=== PATIENT | male | born 1950 | race Caucasian/White ===

== ENCOUNTER 2017-10-01 13:14 | Inpatient (IN) | payer MEDICARE ==
[~2017-10-01] VITALS: Ht 172.7 cm; Wt 113.1 kg
--- NOTE | 2017-10-01 13:20 | PHYS DOC ---
Adult General Chief Complaint Chief Complaint: ALTERED MENTAL STATUS [facility] HPI Patient is a 67 year old male who presents with oriented mental status. He is on 10 mg of morphine that he takes every 4 hours for his chronic back pain he states the last time he took one was at 10 AM this morning he started feeling "off". He denies any fevers chills and neck pain or stiffness, shortness of breath headache, or abdominal pain. He states he just doesn't feel normal for him. According to nursing staff he drove his here to an outpatient procedure and security found him passed out in his car with it still in gear. He drool on the side of his face. They helped him into the hospital to his outpatient waiting room where staff in the outpatient waiting room sent to the emergency department. According to nursing staff he's on Dilaudid, morphine, and tizanidine, I was also informed that he probably got into his 's "lock box" and other narcotics in it. She according to his son he has a history of a nephrectomy approximately 4 months ago secondary to "cancer" and also had leukemia. The told me that his symptoms been going on since Friday wishes been very tired and slurring some of his words. She states he did not say that he's had a headache neck stiffness fevers or chills. Review of Systems Review of Systems Constitutional: Denies fever or chills [] Eyes: Denies change in visual acuity, redness, or eye pain [] HENT: Denies nasal congestion or sore throat [] Respiratory: Denies cough or shortness of breath [] Cardiovascular: No additional information not addressed in HPI [] GI: Denies abdominal pain, nausea, vomiting, bloody stools or diarrhea [] : Denies dysuria or hematuria [] Musculoskeletal: Denies back pain or joint pain [] Integument: Denies rash or skin lesions [] Neurologic: Denies headache, focal weakness or sensory changes [] Endocrine: Denies polyuria or polydipsia [] All other systems were reviewed and found to be within normal limits, except as documented in this note. Current Medications Current Medications Current Medications Medications (Trade) Dose Ordered Sig/Nils Start Time Stop Time Status Last Admin Dose Admin Naloxone HCl (Narcan) 0.4 mg 1X ONCE 10/01/17 15:15 10/01/17 15:16 DC 10/01/17 15:15 0.4 MG Sodium Chloride 1,000 ml @ 1,000 mls/hr 1X ONCE 10/01/17 15:15 10/01/17 16:14 DC 10/01/17 15:15 1,000 MLS/HR Allergies Allergies Allergies Coded Allergies Type Severity Reaction Last Updated Verified No Known Drug Allergies 10/01/17 No Physical Exam Physical Exam Constitutional: Well developed, well nourished, no acute distress, non-toxic appearance. [] HENT: Normocephalic, atraumatic, bilateral external ears normal, oropharynx moist, no oral exudates, nose normal. Pupils 2 mm bilaterally and reactive Eyes: PERRLA, EOMI, conjunctiva normal, no discharge. [] Neck: Normal range of motion, no tenderness, supple, no stridor. [] Cardiovascular:Heart rate regular rhythm, no murmur [] Lungs & Thorax: Bilateral breath sounds clear to auscultation [] Abdomen: Bowel sounds normal, soft, no tenderness, no masses, no pulsatile masses. [] Skin: Warm, dry, no erythema, no rash. [] Back: No tenderness, no CVA tenderness. [] Extremities: No tenderness, no cyanosis, no clubbing, ROM intact, no edema. [] Neurologic: Alert and oriented X 3, drowsy, normal motor function, normal sensory function, no focal deficits noted. [] Current Patient Data Vital Signs Vital Signs Date Time Temp Pulse Resp B/P (MAP) Pulse Ox O2 Delivery O2 Flow Rate FiO2 10/01/17 16:05 64 16 98 10/01/17 13:28 97.7 159/87 (111) 97.7 Lab Values Laboratory Tests Test 10/01/17 13:36 10/01/17 13:55 10/01/17 14:10 10/01/17 14:16 Glucose (Fingerstick) 88 mg/dL (70-99) O2 Saturation 92 % (92-99) Arterial Blood pH 7.35 (7.35-7.45) Arterial Blood pCO2 at Patient Temp 59 mmHg (35-46) H Arterial Blood pO2 at Patient Temp 67 mmHg (65-108) Arterial Blood HCO3 32 mmol/L (21-28) H Arterial Blood Base Excess 5 mmol/L (-3-3) H FiO2 21.0 Prothrombin Time 13.7 SEC (11.7-14.0) Prothrombin Time INR 1.1 (0.8-1.1) PTT 21 SEC (24-38) L Sodium Level 145 mmol/L (136-145) Potassium Level 4.5 mmol/L (3.5-5.1) Chloride Level 106 mmol/L (98-107) Carbon Dioxide Level 33 mmol/L (21-32) H Anion Gap 6 (6-14) Blood Urea Nitrogen 29 mg/dL (8-26) H Creatinine 1.7 mg/dL (0.7-1.3) H Estimated GFR (Cockcroft-Gault) 40.2 Glucose Level 90 mg/dL (70-99) Calcium Level 9.1 mg/dL (8.5-10.1) Magnesium Level 2.1 mg/dL (1.8-2.4) Total Bilirubin 0.5 mg/dL (0.2-1.0) Direct Bilirubin 0.1 mg/dL (0.0-0.2) Aspartate Amino Transferase (AST) 26 U/L (15-37) Alanine Aminotransferase (ALT) 20 U/L (16-63) Alkaline Phosphatase 57 U/L (46-116) Ammonia 17 mcmol/L (11-34) Creatine Kinase 365 U/L (39-308) H Creatine Kinase MB (Mass) 4.2 ng/mL (0.0-3.6) H Creatine Kinase MB Relative Index 1.2 % (0-4) Myoglobin < 1 ng/mL (16-96) L Troponin I Quantitative < 0.017 ng/mL (0.000-0.055) NG-Dll-D-Type Natriuretic Peptide 280 pg/mL (0-124) H Total Protein 6.3 g/dL (6.4-8.2) L Albumin 3.1 g/dL (3.4-5.0) L Salicylates Level < 2.8 mg/dL (2.8-20.0) L Salicylate Last Dose Date Unknown Salicylate Last Dose Time Unknown Acetaminophen Level 3.6 mcg/ml (10-30) L Acetaminophen Last Dose Date Unknown Acetaminophen Last Dose Time Unknown Ethyl Alcohol Level < 10 mg/dL (0-10) White Blood Count 42.8 x10^3/uL (4.0-11.0) *H Red Blood Count 4.02 x10^6/uL (4.30-5.70) L Hemoglobin 11.8 g/dL (13.0-17.5) L Hematocrit 37.1 % (39.0-53.0) L Mean Corpuscular Volume 92 fL (79-100) Mean Corpuscular Hemoglobin 29 pg (25-35) Mean Corpuscular Hemoglobin Concent 32 g/dL (31-37) Red Cell Distribution Width 15.3 % (11.5-14.5) H Platelet Count 242 x10^3/uL (140-400) Neutrophils (%) (Auto) 13 % (31-73) L Lymphocytes (%) (Auto) 83 % (24-48) H Monocytes (%) (Auto) 3 % (0-9) Eosinophils (%) (Auto) 1 % (0-3) Basophils (%) (Auto) 0 % (0-3) Neutrophils # (Auto) 5.7 x10^3uL (1.8-7.7) Lymphocytes # (Auto) 35.5 x10^3/uL (1.0-4.8) H Monocytes # (Auto) 1.3 x10^3/uL (0.0-1.1) H Eosinophils # (Auto) 0.2 x10^3/uL (0.0-0.7) Basophils # (Auto) 0.1 x10^3/uL (0.0-0.2) Segmented Neutrophils % 4 % (35-66) L Band Neutrophils % 2 % (0-9) Lymphocytes % 88 % (24-48) H Monocytes % 6 % (0-10) Smudge Cells Present Platelet Estimate Adequate (ADEQUATE) Ovalocytes Few Test 10/01/17 15:40 Urine Collection Type Unknown Urine Color Yellow Urine Clarity Clear Urine pH 6.0 Urine Specific [place] 1.025 Urine Protein >=300 mg/dL (NEG-TRACE) Urine Glucose (UA) Negative mg/dL (NEG) Urine Ketones (Stick) Negative mg/dL (NEG) Urine Blood Negative (NEG) Urine Nitrite Negative (NEG) Urine Bilirubin Negative (NEG) Urine Urobilinogen Dipstick 1.0 mg/dL (0.2 mg/dL) Urine Leukocyte Esterase Negative (NEG) Urine RBC 0 /HPF (0-2) Urine WBC 0 /HPF (0-4) Urine Squamous Epithelial Cells None /LPF Urine Bacteria 0 /HPF (0-FEW) Urine Hyaline Casts Moderate /HPF Urine Mucus Mod /LPF Urine Opiates Screen Pos (NEG) Urine Methadone Screen Neg (NEG) Urine Barbiturates Neg (NEG) Urine Phencyclidine Screen Neg (NEG) Urine Amphetamine/Methamphetamine Neg (NEG) Urine Benzodiazepines Screen Pos (NEG) Urine Cocaine Screen Neg (NEG) Urine Cannabinoids Screen Neg (NEG) Urine Ethyl Alcohol Neg (NEG) Laboratory Tests 10/01/17 14:16 Laboratory Tests 10/01/17 14:10 EKG EKG EKG shows sinus rhythm with rate of [address] elevations or concerning T-wave inversions, normal axis, QTC 433 ms, as interpreted by me. Radiology/Procedures Radiology/Procedures [facility] [address] [place] [address] IMAGING REPORT Signed PATIENT: BEAR BEASLEY ACCOUNT: [id number] : 1950 LOCATION: ER AGE: 67 SEX: M EXAM STATUS: PRE ER ORD. PHYSICIAN: ASHOK ELIZABETH MD REASON: AMS PROCEDURE: CT HEAD WO CONTRAST Clinical indications: Altered mental status today. Decreased level of consciousness. Comparison: None available. Technique: Noncontrast axial cross sectional scanning of the head was performed. Findings: No acute intracranial hemorrhage or midline shift or mass-effect or hydrocephalus or extra-axial fluid collection is seen. Moderate bilateral periventricular white matter hypodensity is seen consistent with chronic small vessel ischemic disease in this age group. 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 MRI may be more sensitive to detect acute ischemia in the setting of chronic small vessel ischemic disease. No skull fracture or pneumocephalus is seen. No opacification of the mastoid sinuses or the paranasal sinuses is seen. The maxillary sinuses are not completely seen in this study. Impression: No acute intracranial hemorrhage is seen. Chronic small vessel ischemic disease PQRS Compliance Statement: One or more of the following individualized dose reduction techniques were utilized for this examination: 1. Automated exposure control 2. Adjustment of the mA and/or kV according to patient size 3. Use of iterative reconstruction technique DICTATED and SIGNED BY: DAVE BALL MD DATE: 10/01/171438 CC: ASHOK ELIZABTEH MD ~ [facility] [address] [place] [address] IMAGING REPORT Signed PATIENT: BEAR BEASLEY ACCOUNT: [id number] : 1950 LOCATION: ER AGE: 67 SEX: M EXAM STATUS: PRE ER ORD. PHYSICIAN: ASHOK ELIZABETH MD REASON: AMS PROCEDURE: PORTABLE CHEST 1V Portable AP upright view CXR: Clinical indications: Altered mental status. Findings: No acute lung infiltrate or pleural effusion or pulmonary edema or lung mass or pneumothorax is seen. Prominent left ventricular contour is seen. The pulmonary vasculature, mediastinum and both nicole are unremarkable. Impression: No acute lung infiltrate. Mild cardiomegaly.. DICTATED and SIGNED BY: DAVE BALL MD DATE: 10/01/171436 CC: ASHOK ELIZABETH MD ~ Impressions: Altered mental status History of leukemia\\ Back pain Course & Med Decision Making Course & Med Decision Making Pertinent Labs and Imaging studies reviewed. (See chart for details) Patient received 0.4 mg of Narcan 2 and had improvement in his somnolence for about 2 minutes and then it resolved. His ABG showed mild respiratory acidosis and was started on BiPAP which after approximately 40 minutes improved slightly. He is being admitted to the hospitalist in stable condition at this time. I suspect this is likely secondary to muscle relaxants. He is in stable condition this time going to ICU. We will obtain MRI for further clarification. I did insert antibiotics however with a history of leukemia and the elevated white blood cell count I will hold off at this time. Dragon Disclaimer Dragon Disclaimer This electronic medical record was generated, in whole or in part, using a voice recognition dictation system. Departure Departure Impression: Primary Impression: Mental status change Disposition: ADMITTED INPATIENT Admitting Physician: Nehal Bruce Condition: STABLE ASHOK ELIZABETH MD Oct 01, 2017 13:20
[2017-10-01] MEDS ORDERED: NALOXONE 0.4 MG/ML VIAL. IV ONE ×2 (13:45→15:15)
[2017-10-01] MEDS ORDERED: NALOXONE 0.4 MG/ML VIAL. ONE (13:54)
[2017-10-01 13:58] LABS: HCO3 ABG 32 mmol/L (21-28); PCO2 ABG 59 mmHg (35-46); PO2 ABG 67 mmHg (65-108); SAT O2 ABG 92 % (92-99)
[2017-10-01 14:00] LABS: PH ABG 7.35 (7.35-7.45)
--- NOTE | 2017-10-01 14:09 | EKG ---
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
[2017-10-01 14:30] LABS: BASO # 0.1 x10^3/uL (0.0-0.2); BASO % 0 % (0-3); EOS % 1 % (0-3); HEMATOCRIT 37.1 % (39.0-53.0); HEMOGLOBIN 11.8 g/dL (13.0-17.5); LYMPH # 35.5 x10^3/uL (1.0-4.8); MEAN CORPUSCULAR HEMOGLOBIN 29 pg (25-35); MEAN CORPUSCULAR HGB CONC 32 g/dL (31-37); MEAN CORPUSCULAR VOLUME 92 fL (79-100); MONO % 3 % (0-9); NEUT % 13 % (31-73); PLATELET COUNT 242 x10^3/uL (140-400); RED BLOOD COUNT 4.02 x10^6/uL (4.30-5.70); RED CELL DISTRIBUTION WIDTH 15.3 % (11.5-14.5)
[2017-10-01 14:36] LABS: WHITE BLOOD COUNT 42.8 x10^3/uL (4.0-11.0)
[2017-10-01 14:38] LABS: INR 1.1 (0.8-1.1); PROTHROMBIN TIME PATIENT 13.7 SEC (11.7-14.0)
[2017-10-01 14:41] LABS: CALCIUM 9.1 mg/dL (8.5-10.1); CREATININE 1.7 mg/dL (0.7-1.3); GFR 40.2; POTASSIUM 4.5 mmol/L (3.5-5.1)
--- NOTE | 2017-10-01 14:42 | RAD ---
Portable AP upright view CXR: Clinical indications: Altered mental status. Findings: No acute lung infiltrate or pleural effusion or pulmonary edema or lung mass or pneumothorax is seen. Prominent left ventricular contour is seen. The pulmonary vasculature, mediastinum and both nicole are unremarkable. Impression: No acute lung infiltrate. Mild cardiomegaly..
[2017-10-01 14:47] LABS: ALBUMIN 3.1 g/dL (3.4-5.0); DIRECT BILIRUBIN 0.1 mg/dL (0.0-0.2); ETHANOL < 10 mg/dL (0-10); MAGNESIUM 2.1 mg/dL (1.8-2.4); TOTAL BILIRUBIN 0.5 mg/dL (0.2-1.0); TOTAL PROTEIN 6.3 g/dL (6.4-8.2)
--- NOTE | 2017-10-01 14:47 | RAD ---
Clinical indications: Altered mental status today. Decreased level of consciousness. Comparison: None available. Technique: Noncontrast axial cross sectional scanning of the head was performed. Findings: No acute intracranial hemorrhage or midline shift or mass-effect or hydrocephalus or extra-axial fluid collection is seen. Moderate bilateral periventricular white matter hypodensity is seen consistent with chronic small vessel ischemic disease in this age group. 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 MRI may be more sensitive to detect acute ischemia in the setting of chronic small vessel ischemic disease. No skull fracture or pneumocephalus is seen. No opacification of the mastoid sinuses or the paranasal sinuses is seen. The maxillary sinuses are not completely seen in this study. Impression: No acute intracranial hemorrhage is seen. Chronic small vessel ischemic disease PQRS Compliance Statement: One or more of the following individualized dose reduction techniques were utilized for this examination: 1. Automated exposure control 2. Adjustment of the mA and/or kV according to patient size 3. Use of iterative reconstruction technique
[2017-10-01 14:54] LABS: CKMB MASS 4.2 ng/mL (0.0-3.6)
[2017-10-01] MEDS ORDERED: IV NORMAL SALINE 1000ML BAG 1,000 ML IV ONE (15:15)
[2017-10-01 16:07] LABS: BILIRUBIN,URINE NEGATIVE (NEG); GLUCOSE,URINE NEGATIVE (NEG); NITRITE,URINE NEGATIVE (NEG); PROTEIN,URINE >=300 mg/dL (NEG-TRACE)
[2017-10-01 16:13] LABS: BARBITURATES NEG (NEG); BENZODIAZEPINES POS (NEG); CANNABINOIDS NEG (NEG); COCAINE NEG (NEG); METHADONE NEG (NEG); OPIATES POS (NEG); PHENCYCLIDINE NEG (NEG)
[2017-10-01 16:19] LABS: BACTERIA,URINE 0 /HPF (0-FEW); RBC,URINE 0 /HPF (0-2); WBC,URINE 0 /HPF (0-4)
[2017-10-01 16:59] LABS: HCO3 ABG 29 mmol/L (21-28); PCO2 ABG 52 mmHg (35-46); PH ABG 7.37 (7.35-7.45); PO2 ABG 80 mmHg (65-108); SAT O2 ABG 95 % (92-99)
[2017-10-01 17:05] LABS: OVALOCYTES FEW; PLT ESTIMATE ADEQUATE (ADEQUATE); SMUDGE CELLS PRESENT
[2017-10-01 17:15] VITALS: BP 156/71
[2017-10-01] MEDS ORDERED: ONDANSETRON PF 4 MG/2 ML VIAL. IV PRN ×2 (17:30→17:45)
[2017-10-01] MEDS ORDERED: MORPHINE SULFATE 4 MG/ML DISP.SYRIN. IV PRN (17:45)
[2017-10-01] MEDS ORDERED: traMADol 50 MG TABLET PO PRN (17:45)
[2017-10-01] MEDS ORDERED: ACETAMINOPHEN 325 MG TABLET. PO PRN (17:45)
[2017-10-01] MEDS ORDERED: hydrALAZINE 20 MG/ML VIAL. IVP PRN (17:45)
[2017-10-01] MEDS ORDERED: DOCUSATE SODIUM 100 MG CAPSULE. PO PRN (17:45)
--- NOTE | 2017-10-01 17:49 | PDOC1 ---
History and Physical Date of Admission Date of Admission 10/01/17 Identification/Chief Complaint Chief Complaint AMS Problems: Source Source: Chart review, Patient History of Present Illness History of Present Illness Patient is a 67 year old male who presents with oriented mental status. pt seen in ER, with bipap on, arousable, but cannot tell me the whole history. denies fever, chills, pain, sob, N/V. as per ERP, pt He is on 10 mg of morphine that he takes every 4 hours for his chronic back pain he states the last time he took one was at 10 AM this morning he started feeling "off". According to nursing staff he drove his here to an outpatient procedure and security found him passed out in his car with it still in gear. He drool on the side of his face. They helped him into the hospital to his outpatient waiting room where staff in the outpatient waiting room sent to the emergency department. According to nursing staff he's on Dilaudid, morphine, and tizanidine, ERP was also informed that he probably got into his 's "lock box" and other narcotics in it. She according to his son he has a history of a nephrectomy approximately 4 months ago secondary to "cancer" and also had leukemia. The told ERP that his symptoms been going on since Friday wishes been very tired and slurring some of his words. She states he did not say that he's had a headache neck stiffness fevers or chills. in ER, ABG showed mild hypercapnic resp failure with PCO2 59, wbc 42 with high lymph. got narcan in ER. Past Medical History Past Medical History cannot obtain Past Surgical History Past Surgical History nephrectomy Family History Family History: Hypertension Social History Smoke: No ALCOHOL: none Drugs: None Current Medications Current Medications Current Medications Medications (Trade) Dose Ordered Sig/Nils Start Time Stop Time Status Last Admin Dose Admin Dextrose/Sodium Chloride 1,000 ml @ 100 mls/hr Q10H 10/01/17 17:30 Naloxone HCl (Narcan) 0.4 mg 1X ONCE 10/01/17 15:15 10/01/17 15:16 DC 10/01/17 15:15 0.4 MG Ondansetron HCl (Zofran) 4 mg PRN Q8HRS PRN 10/01/17 17:30 10/02/17 17:29 Sodium Chloride 1,000 ml @ 1,000 mls/hr 1X ONCE 10/01/17 15:15 10/01/17 16:14 DC 10/01/17 15:15 1,000 MLS/HR Allergies Allergies Allergies Coded Allergies Type Severity Reaction Last Updated Verified No Known Drug Allergies 10/01/17 No ROS Review of System CONSTITUTIONAL: No fever or chills EYES: No recent changes SKIN: No rash or itching CARDIOVASCULAR: No chest pain, syncope, palpitations, or edema RESPIRATORY: No SOB or cough GASTROINTESTINAL: No nausea, vomiting or abdominal pain NEUROLOGICAL: No headaches or weakness ENDOCRINE: No cold or heat intolerance GENITOURINARY: No urgency or frequency of urination MUSCULOSKELETAL: No back pain or joint pain LYMPHATICS: No enlarged lymph nodes PSYCHIATRIC: No anxiety or depression Physical Exam Physical Exam GEN.: No apparent distress. on bipap, arousable, follow commands by squeezing my hands, but not really answer my questions HEENT: Head is normocephalic, atraumatic NECK: Supple. LUNGS: Clear to auscultation. HEART: RRR, S1, S2 present. Peripheral pulses intact ABDOMEN: Soft, nontender. Positive bowel sounds. EXTREMITIES: Without any cyanosis. NEUROLOGIC: Normal speech, normal tone PSYCHIATRIC: Normal affect, normal mood. SKIN: No ulcerations Vitals Vitals Vital Signs Date Time Temp Pulse Resp B/P (MAP) Pulse Ox O2 Delivery O2 Flow Rate FiO2 10/01/17 16:05 64 16 98 10/01/17 13:28 97.7 159/87 (111) 97.7 Labs Labs Laboratory Tests Test 10/01/17 13:36 10/01/17 13:55 10/01/17 14:10 10/01/17 14:16 Glucose (Fingerstick) 88 mg/dL (70-99) O2 Saturation 92 % (92-99) Arterial Blood pH 7.35 (7.35-7.45) Arterial Blood pCO2 at Patient Temp 59 mmHg (35-46) Arterial Blood pO2 at Patient Temp 67 mmHg (65-108) Arterial Blood HCO3 32 mmol/L (21-28) Arterial Blood Base Excess 5 mmol/L (-3-3) FiO2 21.0 Prothrombin Time 13.7 SEC (11.7-14.0) Prothromb Time International Ratio 1.1 (0.8-1.1) Activated Partial Thromboplast Time 21 SEC (24-38) Sodium Level 145 mmol/L (136-145) Potassium Level 4.5 mmol/L (3.5-5.1) Chloride Level 106 mmol/L (98-107) Carbon Dioxide Level 33 mmol/L (21-32) Anion Gap 6 (6-14) Blood Urea Nitrogen 29 mg/dL (8-26) Creatinine 1.7 mg/dL (0.7-1.3) Estimated GFR (Cockcroft-Gault) 40.2 Glucose Level 90 mg/dL (70-99) Calcium Level 9.1 mg/dL (8.5-10.1) Magnesium Level 2.1 mg/dL (1.8-2.4) Total Bilirubin 0.5 mg/dL (0.2-1.0) Direct Bilirubin 0.1 mg/dL (0.0-0.2) Aspartate Amino Transf (AST/SGOT) 26 U/L (15-37) Alanine Aminotransferase (ALT/SGPT) 20 U/L (16-63) Alkaline Phosphatase 57 U/L (46-116) Ammonia 17 mcmol/L (11-34) Creatine Kinase 365 U/L (39-308) Creatine Kinase MB (Mass) 4.2 ng/mL (0.0-3.6) Creatine Kinase MB Relative Index 1.2 % (0-4) Myoglobin < 1 ng/mL (16-96) Troponin I Quantitative < 0.017 ng/mL (0.000-0.055) BU-Nca-R-Type Natriuretic Peptide 280 pg/mL (0-124) Total Protein 6.3 g/dL (6.4-8.2) Albumin 3.1 g/dL (3.4-5.0) Salicylates Level < 2.8 mg/dL (2.8-20.0) Salicylate Last Dose Date Unknown Salicylate Last Dose Time Unknown Acetaminophen Level 3.6 mcg/ml (10-30) Acetaminophen Last Dose Date Unknown Acetaminophen Last Dose Time Unknown Ethyl Alcohol Level < 10 mg/dL (0-10) White Blood Count 42.8 x10^3/uL (4.0-11.0) Red Blood Count 4.02 x10^6/uL (4.30-5.70) Hemoglobin 11.8 g/dL (13.0-17.5) Hematocrit 37.1 % (39.0-53.0) Mean Corpuscular Volume 92 fL (79-100) Mean Corpuscular Hemoglobin 29 pg (25-35) Mean Corpuscular Hemoglobin Concent 32 g/dL (31-37) Red Cell Distribution Width 15.3 % (11.5-14.5) Platelet Count 242 x10^3/uL (140-400) Neutrophils (%) (Auto) 13 % (31-73) Lymphocytes (%) (Auto) 83 % (24-48) Monocytes (%) (Auto) 3 % (0-9) Eosinophils (%) (Auto) 1 % (0-3) Basophils (%) (Auto) 0 % (0-3) Neutrophils # (Auto) 5.7 x10^3uL (1.8-7.7) Lymphocytes # (Auto) 35.5 x10^3/uL (1.0-4.8) Monocytes # (Auto) 1.3 x10^3/uL (0.0-1.1) Eosinophils # (Auto) 0.2 x10^3/uL (0.0-0.7) Basophils # (Auto) 0.1 x10^3/uL (0.0-0.2) Segmented Neutrophils % 4 % (35-66) Band Neutrophils % 2 % (0-9) Lymphocytes % 88 % (24-48) Monocytes % 6 % (0-10) Smudge Cells Present Platelet Estimate Adequate (ADEQUATE) Ovalocytes Few Test 10/01/17 15:40 10/01/17 16:55 Urine Collection Type Unknown Urine Color Yellow Urine Clarity Clear Urine pH 6.0 Urine Specific [place] 1.025 Urine Protein >=300 mg/dL (NEG-TRACE) Urine Glucose (UA) Negative mg/dL (NEG) Urine Ketones (Stick) Negative mg/dL (NEG) Urine Blood Negative (NEG) Urine Nitrite Negative (NEG) Urine Bilirubin Negative (NEG) Urine Urobilinogen Dipstick 1.0 mg/dL (0.2 mg/dL) Urine Leukocyte Esterase Negative (NEG) Urine RBC 0 /HPF (0-2) Urine WBC 0 /HPF (0-4) Urine Squamous Epithelial Cells None /LPF Urine Bacteria 0 /HPF (0-FEW) Urine Hyaline Casts Moderate /HPF Urine Mucus Mod /LPF Urine Opiates Screen Pos (NEG) Urine Methadone Screen Neg (NEG) Urine Barbiturates Neg (NEG) Urine Phencyclidine Screen Neg (NEG) Urine Amphetamine/Methamphetamine Neg (NEG) Urine Benzodiazepines Screen Pos (NEG) Urine Cocaine Screen Neg (NEG) Urine Cannabinoids Screen Neg (NEG) Urine Ethyl Alcohol Neg (NEG) O2 Saturation 95 % (92-99) Arterial Blood pH 7.37 (7.35-7.45) Arterial Blood pCO2 at Patient Temp 52 mmHg (35-46) Arterial Blood pO2 at Patient Temp 80 mmHg (65-108) Arterial Blood HCO3 29 mmol/L (21-28) Arterial Blood Base Excess 3 mmol/L (-3-3) FiO2 30.0 Laboratory Tests Test 10/01/17 13:36 10/01/17 13:55 10/01/17 14:10 10/01/17 14:16 Glucose (Fingerstick) 88 mg/dL (70-99) O2 Saturation 92 % (92-99) Arterial Blood pH 7.35 (7.35-7.45) Arterial Blood pCO2 at Patient Temp 59 mmHg (35-46) Arterial Blood pO2 at Patient Temp 67 mmHg (65-108) Arterial Blood HCO3 32 mmol/L (21-28) Arterial Blood Base Excess 5 mmol/L (-3-3) FiO2 21.0 Prothrombin Time 13.7 SEC (11.7-14.0) Prothromb Time International Ratio 1.1 (0.8-1.1) Activated Partial Thromboplast Time 21 SEC (24-38) Sodium Level 145 mmol/L (136-145) Potassium Level 4.5 mmol/L (3.5-5.1) Chloride Level 106 mmol/L (98-107) Carbon Dioxide Level 33 mmol/L (21-32) Anion Gap 6 (6-14) Blood Urea Nitrogen 29 mg/dL (8-26) Creatinine 1.7 mg/dL (0.7-1.3) Estimated GFR (Cockcroft-Gault) 40.2 Glucose Level 90 mg/dL (70-99) Calcium Level 9.1 mg/dL (8.5-10.1) Magnesium Level 2.1 mg/dL (1.8-2.4) Total Bilirubin 0.5 mg/dL (0.2-1.0) Direct Bilirubin 0.1 mg/dL (0.0-0.2) Aspartate Amino Transf (AST/SGOT) 26 U/L (15-37) Alanine Aminotransferase (ALT/SGPT) 20 U/L (16-63) Alkaline Phosphatase 57 U/L (46-116) Ammonia 17 mcmol/L (11-34) Creatine Kinase 365 U/L (39-308) Creatine Kinase MB (Mass) 4.2 ng/mL (0.0-3.6) Creatine Kinase MB Relative Index 1.2 % (0-4) Myoglobin < 1 ng/mL (16-96) Troponin I Quantitative < 0.017 ng/mL (0.000-0.055) GW-[id number]-Type Natriuretic Peptide 280 pg/mL (0-124) Total Protein 6.3 g/dL (6.4-8.2) Albumin 3.1 g/dL (3.4-5.0) Salicylates Level < 2.8 mg/dL (2.8-20.0) Salicylate Last Dose Date Unknown Salicylate Last Dose Time Unknown Acetaminophen Level 3.6 mcg/ml (10-30) Acetaminophen Last Dose Date Unknown Acetaminophen Last Dose Time Unknown Ethyl Alcohol Level < 10 mg/dL (0-10) White Blood Count 42.8 x10^3/uL (4.0-11.0) Red Blood Count 4.02 x10^6/uL (4.30-5.70) Hemoglobin 11.8 g/dL (13.0-17.5) Hematocrit 37.1 % (39.0-53.0) Mean Corpuscular Volume 92 fL (79-100) Mean Corpuscular Hemoglobin 29 pg (25-35) Mean Corpuscular Hemoglobin Concent 32 g/dL (31-37) Red Cell Distribution Width 15.3 % (11.5-14.5) Platelet Count 242 x10^3/uL (140-400) Neutrophils (%) (Auto) 13 % (31-73) Lymphocytes (%) (Auto) 83 % (24-48) Monocytes (%) (Auto) 3 % (0-9) Eosinophils (%) (Auto) 1 % (0-3) Basophils (%) (Auto) 0 % (0-3) Neutrophils # (Auto) 5.7 x10^3uL (1.8-7.7) Lymphocytes # (Auto) 35.5 x10^3/uL (1.0-4.8) Monocytes # (Auto) 1.3 x10^3/uL (0.0-1.1) Eosinophils # (Auto) 0.2 x10^3/uL (0.0-0.7) Basophils # (Auto) 0.1 x10^3/uL (0.0-0.2) Segmented Neutrophils % 4 % (35-66) Band Neutrophils % 2 % (0-9) Lymphocytes % 88 % (24-48) Monocytes % 6 % (0-10) Smudge Cells Present Platelet Estimate Adequate (ADEQUATE) Ovalocytes Few Test 10/01/17 15:40 10/01/17 16:55 Urine Collection Type Unknown Urine Color Yellow Urine Clarity Clear Urine pH 6.0 Urine Specific [place] 1.025 Urine Protein >=300 mg/dL (NEG-TRACE) Urine Glucose (UA) Negative mg/dL (NEG) Urine Ketones (Stick) Negative mg/dL (NEG) Urine Blood Negative (NEG) Urine Nitrite Negative (NEG) Urine Bilirubin Negative (NEG) Urine Urobilinogen Dipstick 1.0 mg/dL (0.2 mg/dL) Urine Leukocyte Esterase Negative (NEG) Urine RBC 0 /HPF (0-2) Urine WBC 0 /HPF (0-4) Urine Squamous Epithelial Cells None /LPF Urine Bacteria 0 /HPF (0-FEW) Urine Hyaline Casts Moderate /HPF Urine Mucus Mod /LPF Urine Opiates Screen Pos (NEG) Urine Methadone Screen Neg (NEG) Urine Barbiturates Neg (NEG) Urine Phencyclidine Screen Neg (NEG) Urine Amphetamine/Methamphetamine Neg (NEG) Urine Benzodiazepines Screen Pos (NEG) Urine Cocaine Screen Neg (NEG) Urine Cannabinoids Screen Neg (NEG) Urine Ethyl Alcohol Neg (NEG) O2 Saturation 95 % (92-99) Arterial Blood pH 7.37 (7.35-7.45) Arterial Blood pCO2 at Patient Temp 52 mmHg (35-46) Arterial Blood pO2 at Patient Temp 80 mmHg (65-108) Arterial Blood HCO3 29 mmol/L (21-28) Arterial Blood Base Excess 3 mmol/L (-3-3) FiO2 30.0 VTE Prophylaxis Ordered VTE Prophylaxis Devices: Yes VTE Pharmacological Prophylaxi: Yes Assessment/Plan Assessment/Plan AMS, metabolic encephalopathy vs. toxic encephalopathy with drug overdose, need to rule out stroke too morbid obesity mild hypercapnic resp failure chronic back pain on opoids OSBALDO, vasomotor mild malnutrition plan: icu care for AMS on bipap for now, should be able to taper to NC soon npo ivf onco, neuro, pulm consult blood smear BRAIN MRI pending PTOT labs tmr dvt, gi ppx admit 2 nights RAMSES MCCLAIN MD Oct 01, 2017 17:49
[2017-10-01 18:00] VITALS: BP 155/87
[2017-10-01 19:00] VITALS: BP 167/81
--- NOTE | 2017-10-01 19:16 | RAD ---
EXAM: Brain MRI without contrast. HISTORY: Confusion. Weakness. TECHNIQUE: Multiplanar, multisequence magnetic resonance imaging of the brain was performed without contrast. COMPARISON: None. FINDINGS: There is no restricted diffusion to suggest acute or subacute infarction. There is no susceptibility effect to suggest hemorrhage. There is no mass effect or midline shift. There is no hydrocephalus. There are multiple scattered focal areas of signal change throughout the cerebral white matter and robles, a nonspecific finding. There is a chronic lacunar infarct or dilated perivascular space within the left putamen. There is cerebral atrophy. There are prominent arachnoid granulations within the occiput, of no clinical significance. There are normal flow voids within the cerebral vessels. The orbits, paranasal sinuses and mastoid air cells are unremarkable. IMPRESSION: 1. No acute intracranial finding. 2. Extensive areas of signal change throughout the cerebral white matter and robles, likely due to chronic small vessel disease. 3. Chronic lacunar infarct or dilated perivascular space within the left putamen. 4. Cerebral atrophy. Electronically signed by: Gemma Esparza MD (10/01/2017 7:12 PM) [facility]
[2017-10-01] MEDS: IV DEXTROSE 5 %-0.45 % NACL 1,000 ML IV SCH (19:39)
[2017-10-01 20:00] VITALS: BP 150/75
[2017-10-01] MEDS ORDERED: FAMOTIDINE 20 MG/2 ML VIAL IVP SCH (21:00)
[2017-10-01 22:00] VITALS: BP 124/54
[2017-10-01 23:00] VITALS: BP 111/78
[2017-10-01] MEDS: HEPARIN PF for SUB-Q USE 5,000 UNIT/0.5 ML VIAL. SQ SCH (23:03)
[2017-10-02] VITALS (15 sets, daily range): BP systolic 105–185; BP diastolic 68–95
[2017-10-02] MEDS: IV DEXTROSE 5 %-0.45 % NACL 1,000 ML IV SCH (04:08)
[2017-10-02] MEDS: HEPARIN PF for SUB-Q USE 5,000 UNIT/0.5 ML VIAL. SQ SCH (06:04)
[2017-10-02 06:45] LABS: CALCIUM 8.8 mg/dL (8.5-10.1); CREATININE 1.4 mg/dL (0.7-1.3); GFR 50.2; POTASSIUM 4.9 mmol/L (3.5-5.1)
[2017-10-02 07:30] LABS: BASO # 0.1 x10^3/uL (0.0-0.2); BASO % 0 % (0-3); EOS % 1 % (0-3); HEMATOCRIT 39.7 % (39.0-53.0); HEMOGLOBIN 12.7 g/dL (13.0-17.5); LYMPH % 81 % (24-48); MEAN CORPUSCULAR HEMOGLOBIN 29 pg (25-35); MEAN CORPUSCULAR HGB CONC 32 g/dL (31-37); MEAN CORPUSCULAR VOLUME 92 fL (79-100); MONO % 3 % (0-9); NEUT % 15 % (31-73); PLATELET COUNT 210 x10^3/uL (140-400); RED BLOOD COUNT 4.32 x10^6/uL (4.30-5.70); RED CELL DISTRIBUTION WIDTH 15.2 % (11.5-14.5)
--- NOTE | 2017-10-02 12:39 | PDOC ---
PROGRESS NOTES Chief Complaint Chief Complaint AMS, metabolic encephalopathy vs. toxic encephalopathy with drug overdose, need to rule out stroke too morbid obesity mild hypercapnic resp failure chronic back pain on opoids OSBALDO, vasomotor mild malnutrition History of Present Illness History of Present Illness Pt seen at bedside in ICU. Is slightly lethargic, but AOCx3 and in NAD. Is unable to ascertain what medications he took prior to admission yesterday, and states his " lays out the pills for (him)" every mornign. Does not recall any benzo's he may have taken nor any pills that end with "-denisha." He was counseled on the dangers of opiate use, and expressed understanding of what landed him in the hospital. Vitals Vitals Vital Signs Date Time Temp Pulse Resp B/P (MAP) Pulse Ox O2 Delivery O2 Flow Rate FiO2 10/02/17 12:00 Room Air 10/02/17 12:00 98.8 56 15 183/72 (109) 96 98.8 10/02/17 08:00 2.0 Physical Exam General: Alert, Oriented X3, Cooperative, No acute distress Heart: Regular rate Lungs: Clear Extremities: No clubbing, No cyanosis, No edema, Normal pulses Skin: No significant lesion Labs LABS Laboratory Tests Test 10/01/17 13:36 10/01/17 13:55 10/01/17 14:10 10/01/17 14:16 Glucose (Fingerstick) 88 mg/dL (70-99) O2 Saturation 92 % (92-99) Arterial Blood pH 7.35 (7.35-7.45) Arterial Blood pCO2 at Patient Temp 59 mmHg (35-46) Arterial Blood pO2 at Patient Temp 67 mmHg (65-108) Arterial Blood HCO3 32 mmol/L (21-28) Arterial Blood Base Excess 5 mmol/L (-3-3) FiO2 21.0 Prothrombin Time 13.7 SEC (11.7-14.0) Prothromb Time International Ratio 1.1 (0.8-1.1) Activated Partial Thromboplast Time 21 SEC (24-38) Sodium Level 145 mmol/L (136-145) Potassium Level 4.5 mmol/L (3.5-5.1) Chloride Level 106 mmol/L (98-107) Carbon Dioxide Level 33 mmol/L (21-32) Anion Gap 6 (6-14) Blood Urea Nitrogen 29 mg/dL (8-26) Creatinine 1.7 mg/dL (0.7-1.3) Estimated GFR (Cockcroft-Gault) 40.2 Glucose Level 90 mg/dL (70-99) Calcium Level 9.1 mg/dL (8.5-10.1) Magnesium Level 2.1 mg/dL (1.8-2.4) Total Bilirubin 0.5 mg/dL (0.2-1.0) Direct Bilirubin 0.1 mg/dL (0.0-0.2) Aspartate Amino Transf (AST/SGOT) 26 U/L (15-37) Alanine Aminotransferase (ALT/SGPT) 20 U/L (16-63) Alkaline Phosphatase 57 U/L (46-116) Ammonia 17 mcmol/L (11-34) Creatine Kinase 365 U/L (39-308) Creatine Kinase MB (Mass) 4.2 ng/mL (0.0-3.6) Creatine Kinase MB Relative Index 1.2 % (0-4) Myoglobin < 1 ng/mL (16-96) Troponin I Quantitative < 0.017 ng/mL (0.000-0.055) ET-Uml-Q-Type Natriuretic Peptide 280 pg/mL (0-124) Total Protein 6.3 g/dL (6.4-8.2) Albumin 3.1 g/dL (3.4-5.0) Salicylates Level < 2.8 mg/dL (2.8-20.0) Salicylate Last Dose Date Unknown Salicylate Last Dose Time Unknown Acetaminophen Level 3.6 mcg/ml (10-30) Acetaminophen Last Dose Date Unknown Acetaminophen Last Dose Time Unknown Ethyl Alcohol Level < 10 mg/dL (0-10) White Blood Count 42.8 x10^3/uL (4.0-11.0) Red Blood Count 4.02 x10^6/uL (4.30-5.70) Hemoglobin 11.8 g/dL (13.0-17.5) Hematocrit 37.1 % (39.0-53.0) Mean Corpuscular Volume 92 fL (79-100) Mean Corpuscular Hemoglobin 29 pg (25-35) Mean Corpuscular Hemoglobin Concent 32 g/dL (31-37) Red Cell Distribution Width 15.3 % (11.5-14.5) Platelet Count 242 x10^3/uL (140-400) Neutrophils (%) (Auto) 13 % (31-73) Lymphocytes (%) (Auto) 83 % (24-48) Monocytes (%) (Auto) 3 % (0-9) Eosinophils (%) (Auto) 1 % (0-3) Basophils (%) (Auto) 0 % (0-3) Neutrophils # (Auto) 5.7 x10^3uL (1.8-7.7) Lymphocytes # (Auto) 35.5 x10^3/uL (1.0-4.8) Monocytes # (Auto) 1.3 x10^3/uL (0.0-1.1) Eosinophils # (Auto) 0.2 x10^3/uL (0.0-0.7) Basophils # (Auto) 0.1 x10^3/uL (0.0-0.2) Segmented Neutrophils % 4 % (35-66) Band Neutrophils % 2 % (0-9) Lymphocytes % 88 % (24-48) Monocytes % 6 % (0-10) Smudge Cells Present Platelet Estimate Adequate (ADEQUATE) Ovalocytes Few Test 10/01/17 15:40 10/01/17 16:55 10/01/17 17:30 10/01/17 23:20 Urine Collection Type Unknown Urine Color Yellow Urine Clarity Clear Urine pH 6.0 Urine Specific Parrish 1.025 Urine Protein >=300 mg/dL (NEG-TRACE) Urine Glucose (UA) Negative mg/dL (NEG) Urine Ketones (Stick) Negative mg/dL (NEG) Urine Blood Negative (NEG) Urine Nitrite Negative (NEG) Urine Bilirubin Negative (NEG) Urine Urobilinogen Dipstick 1.0 mg/dL (0.2 mg/dL) Urine Leukocyte Esterase Negative (NEG) Urine RBC 0 /HPF (0-2) Urine WBC 0 /HPF (0-4) Urine Squamous Epithelial Cells None /LPF Urine Bacteria 0 /HPF (0-FEW) Urine Hyaline Casts Moderate /HPF Urine Mucus Mod /LPF Urine Opiates Screen Pos (NEG) Urine Methadone Screen Neg (NEG) Urine Barbiturates Neg (NEG) Urine Phencyclidine Screen Neg (NEG) Urine Amphetamine/Methamphetamine Neg (NEG) Urine Benzodiazepines Screen Pos (NEG) Urine Cocaine Screen Neg (NEG) Urine Cannabinoids Screen Neg (NEG) Urine Ethyl Alcohol Neg (NEG) O2 Saturation 95 % (92-99) Arterial Blood pH 7.37 (7.35-7.45) Arterial Blood pCO2 at Patient Temp 52 mmHg (35-46) Arterial Blood pO2 at Patient Temp 80 mmHg (65-108) Arterial Blood HCO3 29 mmol/L (21-28) Arterial Blood Base Excess 3 mmol/L (-3-3) FiO2 30.0 Nasal Screen MRSA (PCR) Negative (Negative) Troponin I Quantitative < 0.017 ng/mL (0.000-0.055) Test 10/02/17 06:03 10/02/17 07:05 Sodium Level 143 mmol/L (136-145) Potassium Level 4.9 mmol/L (3.5-5.1) Chloride Level 108 mmol/L (98-107) Carbon Dioxide Level 31 mmol/L (21-32) Anion Gap 4 (6-14) Blood Urea Nitrogen 24 mg/dL (8-26) Creatinine 1.4 mg/dL (0.7-1.3) Estimated GFR (Cockcroft-Gault) 50.2 Glucose Level 74 mg/dL (70-99) Calcium Level 8.8 mg/dL (8.5-10.1) Troponin I Quantitative < 0.017 ng/mL (0.000-0.055) White Blood Count 37.0 x10^3/uL (4.0-11.0) Red Blood Count 4.32 x10^6/uL (4.30-5.70) Hemoglobin 12.7 g/dL (13.0-17.5) Hematocrit 39.7 % (39.0-53.0) Mean Corpuscular Volume 92 fL (79-100) Mean Corpuscular Hemoglobin 29 pg (25-35) Mean Corpuscular Hemoglobin Concent 32 g/dL (31-37) Red Cell Distribution Width 15.2 % (11.5-14.5) Platelet Count 210 x10^3/uL (140-400) Neutrophils (%) (Auto) 15 % (31-73) Lymphocytes (%) (Auto) 81 % (24-48) Monocytes (%) (Auto) 3 % (0-9) Eosinophils (%) (Auto) 1 % (0-3) Basophils (%) (Auto) 0 % (0-3) Neutrophils # (Auto) 5.6 x10^3uL (1.8-7.7) Lymphocytes # (Auto) 30.0 x10^3/uL (1.0-4.8) Monocytes # (Auto) 1.1 x10^3/uL (0.0-1.1) Eosinophils # (Auto) 0.2 x10^3/uL (0.0-0.7) Basophils # (Auto) 0.1 x10^3/uL (0.0-0.2) Review of Systems Review of Systems Pt AOC x3, in NAD. No CP. No SOB. Slightly obtunded, slight speech slurring, but no significant focal neurologic deficits. Assessment and Plan Assessmemt and Plan AMS, metabolic encephalopathy vs. toxic encephalopathy with drug overdose, need to rule out stroke too morbid obesity mild hypercapnic resp failure chronic back pain on opoids OSBALDO, vasomotor mild malnutrition plan: Contineu icu care for AMS Continue ivf Advance diet as tolerated Continue onco, neuro, pulm consult PTOT Recheck labs admit 2 nights Problems: Comment Review of Relevant I have reviewed the following items yuni (where applicable) has been applied. Labs Laboratory Tests Test 10/01/17 13:36 10/01/17 13:55 10/01/17 14:10 10/01/17 14:16 Glucose (Fingerstick) 88 mg/dL (70-99) O2 Saturation 92 % (92-99) Arterial Blood pH 7.35 (7.35-7.45) Arterial Blood pCO2 at Patient Temp 59 mmHg (35-46) Arterial Blood pO2 at Patient Temp 67 mmHg (65-108) Arterial Blood HCO3 32 mmol/L (21-28) Arterial Blood Base Excess 5 mmol/L (-3-3) FiO2 21.0 Prothrombin Time 13.7 SEC (11.7-14.0) Prothromb Time International Ratio 1.1 (0.8-1.1) Activated Partial Thromboplast Time 21 SEC (24-38) Sodium Level 145 mmol/L (136-145) Potassium Level 4.5 mmol/L (3.5-5.1) Chloride Level 106 mmol/L (98-107) Carbon Dioxide Level 33 mmol/L (21-32) Anion Gap 6 (6-14) Blood Urea Nitrogen 29 mg/dL (8-26) Creatinine 1.7 mg/dL (0.7-1.3) Estimated GFR (Cockcroft-Gault) 40.2 Glucose Level 90 mg/dL (70-99) Calcium Level 9.1 mg/dL (8.5-10.1) Magnesium Level 2.1 mg/dL (1.8-2.4) Total Bilirubin 0.5 mg/dL (0.2-1.0) Direct Bilirubin 0.1 mg/dL (0.0-0.2) Aspartate Amino Transf (AST/SGOT) 26 U/L (15-37) Alanine Aminotransferase (ALT/SGPT) 20 U/L (16-63) Alkaline Phosphatase 57 U/L (46-116) Ammonia 17 mcmol/L (11-34) Creatine Kinase 365 U/L (39-308) Creatine Kinase MB (Mass) 4.2 ng/mL (0.0-3.6) Creatine Kinase MB Relative Index 1.2 % (0-4) Myoglobin < 1 ng/mL (16-96) Troponin I Quantitative < 0.017 ng/mL (0.000-0.055) MA-Mwv-F-Type Natriuretic Peptide 280 pg/mL (0-124) Total Protein 6.3 g/dL (6.4-8.2) Albumin 3.1 g/dL (3.4-5.0) Salicylates Level < 2.8 mg/dL (2.8-20.0) Salicylate Last Dose Date Unknown Salicylate Last Dose Time Unknown Acetaminophen Level 3.6 mcg/ml (10-30) Acetaminophen Last Dose Date Unknown Acetaminophen Last Dose Time Unknown Ethyl Alcohol Level < 10 mg/dL (0-10) White Blood Count 42.8 x10^3/uL (4.0-11.0) Red Blood Count 4.02 x10^6/uL (4.30-5.70) Hemoglobin 11.8 g/dL (13.0-17.5) Hematocrit 37.1 % (39.0-53.0) Mean Corpuscular Volume 92 fL (79-100) Mean Corpuscular Hemoglobin 29 pg (25-35) Mean Corpuscular Hemoglobin Concent 32 g/dL (31-37) Red Cell Distribution Width 15.3 % (11.5-14.5) Platelet Count 242 x10^3/uL (140-400) Neutrophils (%) (Auto) 13 % (31-73) Lymphocytes (%) (Auto) 83 % (24-48) Monocytes (%) (Auto) 3 % (0-9) Eosinophils (%) (Auto) 1 % (0-3) Basophils (%) (Auto) 0 % (0-3) Neutrophils # (Auto) 5.7 x10^3uL (1.8-7.7) Lymphocytes # (Auto) 35.5 x10^3/uL (1.0-4.8) Monocytes # (Auto) 1.3 x10^3/uL (0.0-1.1) Eosinophils # (Auto) 0.2 x10^3/uL (0.0-0.7) Basophils # (Auto) 0.1 x10^3/uL (0.0-0.2) Segmented Neutrophils % 4 % (35-66) Band Neutrophils % 2 % (0-9) Lymphocytes % 88 % (24-48) Monocytes % 6 % (0-10) Smudge Cells Present Platelet Estimate Adequate (ADEQUATE) Ovalocytes Few Test 10/01/17 15:40 10/01/17 16:55 10/01/17 17:30 10/01/17 23:20 Urine Collection Type Unknown Urine Color Yellow Urine Clarity Clear Urine pH 6.0 Urine Specific Parrish 1.025 Urine Protein >=300 mg/dL (NEG-TRACE) Urine Glucose (UA) Negative mg/dL (NEG) Urine Ketones (Stick) Negative mg/dL (NEG) Urine Blood Negative (NEG) Urine Nitrite Negative (NEG) Urine Bilirubin Negative (NEG) Urine Urobilinogen Dipstick 1.0 mg/dL (0.2 mg/dL) Urine Leukocyte Esterase Negative (NEG) Urine RBC 0 /HPF (0-2) Urine WBC 0 /HPF (0-4) Urine Squamous Epithelial Cells None /LPF Urine Bacteria 0 /HPF (0-FEW) Urine Hyaline Casts Moderate /HPF Urine Mucus Mod /LPF Urine Opiates Screen Pos (NEG) Urine Methadone Screen Neg (NEG) Urine Barbiturates Neg (NEG) Urine Phencyclidine Screen Neg (NEG) Urine Amphetamine/Methamphetamine Neg (NEG) Urine Benzodiazepines Screen Pos (NEG) Urine Cocaine Screen Neg (NEG) Urine Cannabinoids Screen Neg (NEG) Urine Ethyl Alcohol Neg (NEG) O2 Saturation 95 % (92-99) Arterial Blood pH 7.37 (7.35-7.45) Arterial Blood pCO2 at Patient Temp 52 mmHg (35-46) Arterial Blood pO2 at Patient Temp 80 mmHg (65-108) Arterial Blood HCO3 29 mmol/L (21-28) Arterial Blood Base Excess 3 mmol/L (-3-3) FiO2 30.0 Nasal Screen MRSA (PCR) Negative (Negative) Troponin I Quantitative < 0.017 ng/mL (0.000-0.055) Test 10/02/17 06:03 10/02/17 07:05 Sodium Level 143 mmol/L (136-145) Potassium Level 4.9 mmol/L (3.5-5.1) Chloride Level 108 mmol/L (98-107) Carbon Dioxide Level 31 mmol/L (21-32) Anion Gap 4 (6-14) Blood Urea Nitrogen 24 mg/dL (8-26) Creatinine 1.4 mg/dL (0.7-1.3) Estimated GFR (Cockcroft-Gault) 50.2 Glucose Level 74 mg/dL (70-99) Calcium Level 8.8 mg/dL (8.5-10.1) Troponin I Quantitative < 0.017 ng/mL (0.000-0.055) White Blood Count 37.0 x10^3/uL (4.0-11.0) Red Blood Count 4.32 x10^6/uL (4.30-5.70) Hemoglobin 12.7 g/dL (13.0-17.5) Hematocrit 39.7 % (39.0-53.0) Mean Corpuscular Volume 92 fL (79-100) Mean Corpuscular Hemoglobin 29 pg (25-35) Mean Corpuscular Hemoglobin Concent 32 g/dL (31-37) Red Cell Distribution Width 15.2 % (11.5-14.5) Platelet Count 210 x10^3/uL (140-400) Neutrophils (%) (Auto) 15 % (31-73) Lymphocytes (%) (Auto) 81 % (24-48) Monocytes (%) (Auto) 3 % (0-9) Eosinophils (%) (Auto) 1 % (0-3) Basophils (%) (Auto) 0 % (0-3) Neutrophils # (Auto) 5.6 x10^3uL (1.8-7.7) Lymphocytes # (Auto) 30.0 x10^3/uL (1.0-4.8) Monocytes # (Auto) 1.1 x10^3/uL (0.0-1.1) Eosinophils # (Auto) 0.2 x10^3/uL (0.0-0.7) Basophils # (Auto) 0.1 x10^3/uL (0.0-0.2) Laboratory Tests Test 10/01/17 13:36 10/01/17 13:55 10/01/17 14:10 10/01/17 14:16 Glucose (Fingerstick) 88 mg/dL (70-99) O2 Saturation 92 % (92-99) Arterial Blood pH 7.35 (7.35-7.45) Arterial Blood pCO2 at Patient Temp 59 mmHg (35-46) Arterial Blood pO2 at Patient Temp 67 mmHg (65-108) Arterial Blood HCO3 32 mmol/L (21-28) Arterial Blood Base Excess 5 mmol/L (-3-3) FiO2 21.0 Prothrombin Time 13.7 SEC (11.7-14.0) Prothromb Time International Ratio 1.1 (0.8-1.1) Activated Partial Thromboplast Time 21 SEC (24-38) Sodium Level 145 mmol/L (136-145) Potassium Level 4.5 mmol/L (3.5-5.1) Chloride Level 106 mmol/L (98-107) Carbon Dioxide Level 33 mmol/L (21-32) Anion Gap 6 (6-14) Blood Urea Nitrogen 29 mg/dL (8-26) Creatinine 1.7 mg/dL (0.7-1.3) Estimated GFR (Cockcroft-Gault) 40.2 Glucose Level 90 mg/dL (70-99) Calcium Level 9.1 mg/dL (8.5-10.1) Magnesium Level 2.1 mg/dL (1.8-2.4) Total Bilirubin 0.5 mg/dL (0.2-1.0) Direct Bilirubin 0.1 mg/dL (0.0-0.2) Aspartate Amino Transf (AST/SGOT) 26 U/L (15-37) Alanine Aminotransferase (ALT/SGPT) 20 U/L (16-63) Alkaline Phosphatase 57 U/L (46-116) Ammonia 17 mcmol/L (11-34) Creatine Kinase 365 U/L (39-308) Creatine Kinase MB (Mass) 4.2 ng/mL (0.0-3.6) Creatine Kinase MB Relative Index 1.2 % (0-4) Myoglobin < 1 ng/mL (16-96) Troponin I Quantitative < 0.017 ng/mL (0.000-0.055) HG-Dca-L-Type Natriuretic Peptide 280 pg/mL (0-124) Total Protein 6.3 g/dL (6.4-8.2) Albumin 3.1 g/dL (3.4-5.0) Salicylates Level < 2.8 mg/dL (2.8-20.0) Salicylate Last Dose Date Unknown Salicylate Last Dose Time Unknown Acetaminophen Level 3.6 mcg/ml (10-30) Acetaminophen Last Dose Date Unknown Acetaminophen Last Dose Time Unknown Ethyl Alcohol Level < 10 mg/dL (0-10) White Blood Count 42.8 x10^3/uL (4.0-11.0) Red Blood Count 4.02 x10^6/uL (4.30-5.70) Hemoglobin 11.8 g/dL (13.0-17.5) Hematocrit 37.1 % (39.0-53.0) Mean Corpuscular Volume 92 fL (79-100) Mean Corpuscular Hemoglobin 29 pg (25-35) Mean Corpuscular Hemoglobin Concent 32 g/dL (31-37) Red Cell Distribution Width 15.3 % (11.5-14.5) Platelet Count 242 x10^3/uL (140-400) Neutrophils (%) (Auto) 13 % (31-73) Lymphocytes (%) (Auto) 83 % (24-48) Monocytes (%) (Auto) 3 % (0-9) Eosinophils (%) (Auto) 1 % (0-3) Basophils (%) (Auto) 0 % (0-3) Neutrophils # (Auto) 5.7 x10^3uL (1.8-7.7) Lymphocytes # (Auto) 35.5 x10^3/uL (1.0-4.8) Monocytes # (Auto) 1.3 x10^3/uL (0.0-1.1) Eosinophils # (Auto) 0.2 x10^3/uL (0.0-0.7) Basophils # (Auto) 0.1 x10^3/uL (0.0-0.2) Segmented Neutrophils % 4 % (35-66) Band Neutrophils % 2 % (0-9) Lymphocytes % 88 % (24-48) Monocytes % 6 % (0-10) Smudge Cells Present Platelet Estimate Adequate (ADEQUATE) Ovalocytes Few Test 10/01/17 15:40 10/01/17 16:55 10/01/17 17:30 10/01/17 23:20 Urine Collection Type Unknown Urine Color Yellow Urine Clarity Clear Urine pH 6.0 Urine Specific Parrish 1.025 Urine Protein >=300 mg/dL (NEG-TRACE) Urine Glucose (UA) Negative mg/dL (NEG) Urine Ketones (Stick) Negative mg/dL (NEG) Urine Blood Negative (NEG) Urine Nitrite Negative (NEG) Urine Bilirubin Negative (NEG) Urine Urobilinogen Dipstick 1.0 mg/dL (0.2 mg/dL) Urine Leukocyte Esterase Negative (NEG) Urine RBC 0 /HPF (0-2) Urine WBC 0 /HPF (0-4) Urine Squamous Epithelial Cells None /LPF Urine Bacteria 0 /HPF (0-FEW) Urine Hyaline Casts Moderate /HPF Urine Mucus Mod /LPF Urine Opiates Screen Pos (NEG) Urine Methadone Screen Neg (NEG) Urine Barbiturates Neg (NEG) Urine Phencyclidine Screen Neg (NEG) Urine Amphetamine/Methamphetamine Neg (NEG) Urine Benzodiazepines Screen Pos (NEG) Urine Cocaine Screen Neg (NEG) Urine Cannabinoids Screen Neg (NEG) Urine Ethyl Alcohol Neg (NEG) O2 Saturation 95 % (92-99) Arterial Blood pH 7.37 (7.35-7.45) Arterial Blood pCO2 at Patient Temp 52 mmHg (35-46) Arterial Blood pO2 at Patient Temp 80 mmHg (65-108) Arterial Blood HCO3 29 mmol/L (21-28) Arterial Blood Base Excess 3 mmol/L (-3-3) FiO2 30.0 Nasal Screen MRSA (PCR) Negative (Negative) Troponin I Quantitative < 0.017 ng/mL (0.000-0.055) Test 10/02/17 06:03 10/02/17 07:05 Sodium Level 143 mmol/L (136-145) Potassium Level 4.9 mmol/L (3.5-5.1) Chloride Level 108 mmol/L (98-107) Carbon Dioxide Level 31 mmol/L (21-32) Anion Gap 4 (6-14) Blood Urea Nitrogen 24 mg/dL (8-26) Creatinine 1.4 mg/dL (0.7-1.3) Estimated GFR (Cockcroft-Gault) 50.2 Glucose Level 74 mg/dL (70-99) Calcium Level 8.8 mg/dL (8.5-10.1) Troponin I Quantitative < 0.017 ng/mL (0.000-0.055) White Blood Count 37.0 x10^3/uL (4.0-11.0) Red Blood Count 4.32 x10^6/uL (4.30-5.70) Hemoglobin 12.7 g/dL (13.0-17.5) Hematocrit 39.7 % (39.0-53.0) Mean Corpuscular Volume 92 fL (79-100) Mean Corpuscular Hemoglobin 29 pg (25-35) Mean Corpuscular Hemoglobin Concent 32 g/dL (31-37) Red Cell Distribution Width 15.2 % (11.5-14.5) Platelet Count 210 x10^3/uL (140-400) Neutrophils (%) (Auto) 15 % (31-73) Lymphocytes (%) (Auto) 81 % (24-48) Monocytes (%) (Auto) 3 % (0-9) Eosinophils (%) (Auto) 1 % (0-3) Basophils (%) (Auto) 0 % (0-3) Neutrophils # (Auto) 5.6 x10^3uL (1.8-7.7) Lymphocytes # (Auto) 30.0 x10^3/uL (1.0-4.8) Monocytes # (Auto) 1.1 x10^3/uL (0.0-1.1) Eosinophils # (Auto) 0.2 x10^3/uL (0.0-0.7) Basophils # (Auto) 0.1 x10^3/uL (0.0-0.2) Medications Current Medications Naloxone HCl (Narcan) 0.4 mg 1X ONCE IV Last administered on 10/01/17 14:08; Start 10/01/17 at 13:45; Stop 10/01/17 at 13:54; Status DC Naloxone HCl (Narcan) 0.4 mg STK-MED ONCE .ROUTE ; Start 10/01/17 at 13:54; Stop 10/01/17 at 13:55; Status DC Naloxone HCl (Narcan) 0.4 mg 1X ONCE IV Last administered on 10/01/17 15:15; Start 10/01/17 at 15:15; Stop 10/01/17 at 15:16; Status DC Sodium Chloride 1,000 ml @ 1,000 mls/hr 1X ONCE IV Last administered on 15:15; Start 10/01/17 at 15:15; Stop 10/01/17 at 16:14; Status DC Ondansetron HCl (Zofran) 4 mg PRN Q8HRS PRN IV NAUSEA/VOMITING; Start 10/01/17 at 17:30; Stop 10/02/17 at 08:47; Status DC Dextrose/Sodium Chloride 1,000 ml @ 100 mls/hr Q10H IV Last administered on 04:08; Start 10/01/17 at 17:30 Acetaminophen (Tylenol) 650 mg PRN Q6HRS PRN PO FEVER; Start 10/01/17 at 17:45 Ondansetron HCl (Zofran) 4 mg PRN Q6HRS PRN IV NAUSEA/VOMITING; Start 10/01/17 at 17:45 Morphine Sulfate 2 mg PRN Q2HR PRN IV PAIN; Start 10/01/17 at 17:45 Tramadol HCl (Ultram) 50 mg PRN Q6HRS PRN PO PAIN; Start 10/01/17 at 17:45 Hydralazine HCl (Apresoline Inj) 10 mg PRN Q4HRS PRN IVP ELEVATED BP, SEE COMMENTS Last administered on 10/02/17 03:07; Start 10/01/17 at 17:45 Docusate Sodium (Colace) 100 mg PRN DAILY PRN PO CONSTIPATION; Start 10/01/17 at 17:45 Famotidine (Pepcid) 20 mg QHS IVP Last administered on 11/8/17at 22:59; Start 10/01/17 at 21:00 Heparin Sodium (Porcine) (Heparin Sq) 5,000 unit Q8HRS SQ Last administered on 10/02/17 06:04; Start 10/01/17 at 22:00 Vitals/I & O Vital Sign - Last 24 Hours 10/01/17 10/01/17 10/01/17 10/01/17 13:28 14:32 15:45 16:05 Temp 97.7 97.7 Pulse 78 64 62 64 Resp 14 14 16 16 B/P (MAP) 159/87 (111) Pulse Ox 88 100 97 98 10/01/17 10/01/17 10/01/17 10/01/17 17:15 17:15 18:00 19:00 Temp 97.8 97.8 Pulse 66 68 66 Resp 18 19 24 B/P (MAP) 156/71 (99) 155/87 (109) 167/81 (109) Pulse Ox 93 97 95 O2 Delivery Nasal Cannula Room Air Nasal Cannula Nasal Cannula O2 Flow Rate 2.0 2.0 2.0 10/01/17 10/01/17 10/01/17 10/01/17 20:00 20:01 21:00 22:00 Temp 98.1 98.1 Pulse 59 90 86 Resp 13 17 24 B/P (MAP) 150/75 (100) 124/54 (77) Pulse Ox 97 99 95 O2 Delivery Nasal Cannula Nasal Cannula Nasal Cannula Nasal Cannula O2 Flow Rate 2.0 2.0 2.0 2.0 10/01/17 10/02/17 10/02/17 10/02/17 23:00 00:00 00:00 01:00 Temp 98.1 98.1 Pulse 65 98 56 Resp 17 21 11 B/P (MAP) 111/78 (89) 139/95 (110) 166/81 (109) Pulse Ox 94 99 99 O2 Delivery Nasal Cannula Nasal Cannula Nasal Cannula Nasal Cannula O2 Flow Rate 2.0 2.0 2.0 2.0 10/02/17 10/02/17 10/02/17 10/02/17 02:00 03:00 03:07 04:00 Pulse 82 57 60 Resp 24 11 B/P (MAP) 115/90 (98) 185/83 (117) 185/83 Pulse Ox 100 99 O2 Delivery Nasal Cannula Nasal Cannula Nasal Cannula O2 Flow Rate 2.0 2.0 2.0 10/02/17 10/02/17 10/02/17 10/02/17 04:00 05:00 06:00 07:00 Temp 97.9 97.9 Pulse 57 56 60 58 Resp 13 13 17 16 B/P (MAP) 157/68 (97) 164/72 (102) 163/81 (108) 174/84 (114) Pulse Ox 98 97 99 99 O2 Delivery Nasal Cannula Nasal Cannula Nasal Cannula Nasal Cannula O2 Flow Rate 2.0 2.0 2.0 2.0 10/02/17 10/02/17 10/02/17 10/02/17 08:00 08:00 09:00 10:00 Temp 98.7 98.7 Pulse 56 54 60 Resp 14 15 15 B/P (MAP) 182/85 (117) 161/70 (100) 184/81 (115) Pulse Ox 98 98 95 O2 Delivery Nasal Cannula Room Air Room Air Room Air O2 Flow Rate 2.0 10/02/17 10/02/17 10/02/17 11:00 12:00 12:00 Temp 98.8 98.8 Pulse 58 56 Resp 15 15 B/P (MAP) 171/74 (106) 183/72 (109) Pulse Ox 96 96 O2 Delivery Room Air Room Air Room Air Intake and Output 10/02/17 10/02/17 10/03/17 15:00 23:00 07:00 Intake Total 120 ml Output Total 500 ml Balance -380 ml ROBERT ANTONIO III DO Oct 02, 2017 12:39
[2017-10-02 13:34] LABS: LYMPH % 83 % (24-48)
[2017-10-02] MEDS ORDERED: DULO60CA6 PO (14:20)
[2017-10-02] MEDS ORDERED: ISOS30TA4 PO (14:20)
[2017-10-02] MEDS ORDERED: PRAV80TA2 PO (14:20)
--- NOTE | 2017-10-02 15:04 | PDOC ---
PULMONARY PROGRESS NOTES Vitals Vital Signs Date Time Temp Pulse Resp B/P (MAP) Pulse Ox O2 Delivery O2 Flow Rate FiO2 10/02/17 14:00 58 17 171/82 (111) 96 Room Air 10/02/17 12:00 98.8 98.8 10/02/17 08:00 2.0 Lungs: Clear Labs Laboratory Tests Test 10/01/17 13:36 10/01/17 13:55 10/01/17 14:10 10/01/17 14:16 Glucose (Fingerstick) 88 mg/dL (70-99) O2 Saturation 92 % (92-99) Arterial Blood pH 7.35 (7.35-7.45) Arterial Blood pCO2 at Patient Temp 59 mmHg (35-46) Arterial Blood pO2 at Patient Temp 67 mmHg (65-108) Arterial Blood HCO3 32 mmol/L (21-28) Arterial Blood Base Excess 5 mmol/L (-3-3) FiO2 21.0 Prothrombin Time 13.7 SEC (11.7-14.0) Prothromb Time International Ratio 1.1 (0.8-1.1) Activated Partial Thromboplast Time 21 SEC (24-38) Sodium Level 145 mmol/L (136-145) Potassium Level 4.5 mmol/L (3.5-5.1) Chloride Level 106 mmol/L (98-107) Carbon Dioxide Level 33 mmol/L (21-32) Anion Gap 6 (6-14) Blood Urea Nitrogen 29 mg/dL (8-26) Creatinine 1.7 mg/dL (0.7-1.3) Estimated GFR (Cockcroft-Gault) 40.2 Glucose Level 90 mg/dL (70-99) Calcium Level 9.1 mg/dL (8.5-10.1) Magnesium Level 2.1 mg/dL (1.8-2.4) Total Bilirubin 0.5 mg/dL (0.2-1.0) Direct Bilirubin 0.1 mg/dL (0.0-0.2) Aspartate Amino Transf (AST/SGOT) 26 U/L (15-37) Alanine Aminotransferase (ALT/SGPT) 20 U/L (16-63) Alkaline Phosphatase 57 U/L (46-116) Ammonia 17 mcmol/L (11-34) Creatine Kinase 365 U/L (39-308) Creatine Kinase MB (Mass) 4.2 ng/mL (0.0-3.6) Creatine Kinase MB Relative Index 1.2 % (0-4) Myoglobin < 1 ng/mL (16-96) Troponin I Quantitative < 0.017 ng/mL (0.000-0.055) FR-Iot-R-Type Natriuretic Peptide 280 pg/mL (0-124) Total Protein 6.3 g/dL (6.4-8.2) Albumin 3.1 g/dL (3.4-5.0) Salicylates Level < 2.8 mg/dL (2.8-20.0) Salicylate Last Dose Date Unknown Salicylate Last Dose Time Unknown Acetaminophen Level 3.6 mcg/ml (10-30) Acetaminophen Last Dose Date Unknown Acetaminophen Last Dose Time Unknown Ethyl Alcohol Level < 10 mg/dL (0-10) White Blood Count 42.8 x10^3/uL (4.0-11.0) Red Blood Count 4.02 x10^6/uL (4.30-5.70) Hemoglobin 11.8 g/dL (13.0-17.5) Hematocrit 37.1 % (39.0-53.0) Mean Corpuscular Volume 92 fL (79-100) Mean Corpuscular Hemoglobin 29 pg (25-35) Mean Corpuscular Hemoglobin Concent 32 g/dL (31-37) Red Cell Distribution Width 15.3 % (11.5-14.5) Platelet Count 242 x10^3/uL (140-400) Neutrophils (%) (Auto) 13 % (31-73) Lymphocytes (%) (Auto) 83 % (24-48) Monocytes (%) (Auto) 3 % (0-9) Eosinophils (%) (Auto) 1 % (0-3) Basophils (%) (Auto) 0 % (0-3) Neutrophils # (Auto) 5.7 x10^3uL (1.8-7.7) Lymphocytes # (Auto) 35.5 x10^3/uL (1.0-4.8) Monocytes # (Auto) 1.3 x10^3/uL (0.0-1.1) Eosinophils # (Auto) 0.2 x10^3/uL (0.0-0.7) Basophils # (Auto) 0.1 x10^3/uL (0.0-0.2) Segmented Neutrophils % 4 % (35-66) Band Neutrophils % 2 % (0-9) Lymphocytes % 88 % (24-48) Monocytes % 6 % (0-10) Smudge Cells Present Platelet Estimate Adequate (ADEQUATE) Ovalocytes Few Test 10/01/17 15:40 10/01/17 16:55 10/01/17 17:30 10/01/17 23:20 Urine Collection Type Unknown Urine Color Yellow Urine Clarity Clear Urine pH 6.0 Urine Specific [place] 1.025 Urine Protein >=300 mg/dL (NEG-TRACE) Urine Glucose (UA) Negative mg/dL (NEG) Urine Ketones (Stick) Negative mg/dL (NEG) Urine Blood Negative (NEG) Urine Nitrite Negative (NEG) Urine Bilirubin Negative (NEG) Urine Urobilinogen Dipstick 1.0 mg/dL (0.2 mg/dL) Urine Leukocyte Esterase Negative (NEG) Urine RBC 0 /HPF (0-2) Urine WBC 0 /HPF (0-4) Urine Squamous Epithelial Cells None /LPF Urine Bacteria 0 /HPF (0-FEW) Urine Hyaline Casts Moderate /HPF Urine Mucus Mod /LPF Urine Opiates Screen Pos (NEG) Urine Methadone Screen Neg (NEG) Urine Barbiturates Neg (NEG) Urine Phencyclidine Screen Neg (NEG) Urine Amphetamine/Methamphetamine Neg (NEG) Urine Benzodiazepines Screen Pos (NEG) Urine Cocaine Screen Neg (NEG) Urine Cannabinoids Screen Neg (NEG) Urine Ethyl Alcohol Neg (NEG) O2 Saturation 95 % (92-99) Arterial Blood pH 7.37 (7.35-7.45) Arterial Blood pCO2 at Patient Temp 52 mmHg (35-46) Arterial Blood pO2 at Patient Temp 80 mmHg (65-108) Arterial Blood HCO3 29 mmol/L (21-28) Arterial Blood Base Excess 3 mmol/L (-3-3) FiO2 30.0 Nasal Screen MRSA (PCR) Negative (Negative) Troponin I Quantitative < 0.017 ng/mL (0.000-0.055) Test 10/02/17 06:03 10/02/17 07:05 Sodium Level 143 mmol/L (136-145) Potassium Level 4.9 mmol/L (3.5-5.1) Chloride Level 108 mmol/L (98-107) Carbon Dioxide Level 31 mmol/L (21-32) Anion Gap 4 (6-14) Blood Urea Nitrogen 24 mg/dL (8-26) Creatinine 1.4 mg/dL (0.7-1.3) Estimated GFR (Cockcroft-Gault) 50.2 Glucose Level 74 mg/dL (70-99) Calcium Level 8.8 mg/dL (8.5-10.1) Troponin I Quantitative < 0.017 ng/mL (0.000-0.055) White Blood Count 37.0 x10^3/uL (4.0-11.0) Red Blood Count 4.32 x10^6/uL (4.30-5.70) Hemoglobin 12.7 g/dL (13.0-17.5) Hematocrit 39.7 % (39.0-53.0) Mean Corpuscular Volume 92 fL (79-100) Mean Corpuscular Hemoglobin 29 pg (25-35) Mean Corpuscular Hemoglobin Concent 32 g/dL (31-37) Red Cell Distribution Width 15.2 % (11.5-14.5) Platelet Count 210 x10^3/uL (140-400) Neutrophils (%) (Auto) 15 % (31-73) Lymphocytes (%) (Auto) 81 % (24-48) Monocytes (%) (Auto) 3 % (0-9) Eosinophils (%) (Auto) 1 % (0-3) Basophils (%) (Auto) 0 % (0-3) Neutrophils # (Auto) 5.6 x10^3uL (1.8-7.7) Lymphocytes # (Auto) 30.0 x10^3/uL (1.0-4.8) Monocytes # (Auto) 1.1 x10^3/uL (0.0-1.1) Eosinophils # (Auto) 0.2 x10^3/uL (0.0-0.7) Basophils # (Auto) 0.1 x10^3/uL (0.0-0.2) Laboratory Tests Test 10/01/17 15:40 10/01/17 16:55 10/01/17 17:30 10/01/17 23:20 Urine Collection Type Unknown Urine Color Yellow Urine Clarity Clear Urine pH 6.0 Urine Specific [place] 1.025 Urine Protein >=300 mg/dL (NEG-TRACE) Urine Glucose (UA) Negative mg/dL (NEG) Urine Ketones (Stick) Negative mg/dL (NEG) Urine Blood Negative (NEG) Urine Nitrite Negative (NEG) Urine Bilirubin Negative (NEG) Urine Urobilinogen Dipstick 1.0 mg/dL (0.2 mg/dL) Urine Leukocyte Esterase Negative (NEG) Urine RBC 0 /HPF (0-2) Urine WBC 0 /HPF (0-4) Urine Squamous Epithelial Cells None /LPF Urine Bacteria 0 /HPF (0-FEW) Urine Hyaline Casts Moderate /HPF Urine Mucus Mod /LPF Urine Opiates Screen Pos (NEG) Urine Methadone Screen Neg (NEG) Urine Barbiturates Neg (NEG) Urine Phencyclidine Screen Neg (NEG) Urine Amphetamine/Methamphetamine Neg (NEG) Urine Benzodiazepines Screen Pos (NEG) Urine Cocaine Screen Neg (NEG) Urine Cannabinoids Screen Neg (NEG) Urine Ethyl Alcohol Neg (NEG) O2 Saturation 95 % (92-99) Arterial Blood pH 7.37 (7.35-7.45) Arterial Blood pCO2 at Patient Temp 52 mmHg (35-46) Arterial Blood pO2 at Patient Temp 80 mmHg (65-108) Arterial Blood HCO3 29 mmol/L (21-28) Arterial Blood Base Excess 3 mmol/L (-3-3) FiO2 30.0 Nasal Screen MRSA (PCR) Negative (Negative) Troponin I Quantitative < 0.017 ng/mL (0.000-0.055) Test 10/02/17 06:03 10/02/17 07:05 Sodium Level 143 mmol/L (136-145) Potassium Level 4.9 mmol/L (3.5-5.1) Chloride Level 108 mmol/L (98-107) Carbon Dioxide Level 31 mmol/L (21-32) Anion Gap 4 (6-14) Blood Urea Nitrogen 24 mg/dL (8-26) Creatinine 1.4 mg/dL (0.7-1.3) Estimated GFR (Cockcroft-Gault) 50.2 Glucose Level 74 mg/dL (70-99) Calcium Level 8.8 mg/dL (8.5-10.1) Troponin I Quantitative < 0.017 ng/mL (0.000-0.055) White Blood Count 37.0 x10^3/uL (4.0-11.0) Red Blood Count 4.32 x10^6/uL (4.30-5.70) Hemoglobin 12.7 g/dL (13.0-17.5) Hematocrit 39.7 % (39.0-53.0) Mean Corpuscular Volume 92 fL (79-100) Mean Corpuscular Hemoglobin 29 pg (25-35) Mean Corpuscular Hemoglobin Concent 32 g/dL (31-37) Red Cell Distribution Width 15.2 % (11.5-14.5) Platelet Count 210 x10^3/uL (140-400) Neutrophils (%) (Auto) 15 % (31-73) Lymphocytes (%) (Auto) 81 % (24-48) Monocytes (%) (Auto) 3 % (0-9) Eosinophils (%) (Auto) 1 % (0-3) Basophils (%) (Auto) 0 % (0-3) Neutrophils # (Auto) 5.6 x10^3uL (1.8-7.7) Lymphocytes # (Auto) 30.0 x10^3/uL (1.0-4.8) Monocytes # (Auto) 1.1 x10^3/uL (0.0-1.1) Eosinophils # (Auto) 0.2 x10^3/uL (0.0-0.7) Basophils # (Auto) 0.1 x10^3/uL (0.0-0.2) Medications Active Scripts Medications Dose Route/Sig Max Daily Dose Days Date Category Cymbalta (Duloxetine Hcl) 60 Mg Capsule.dr 1 Cap PO HS 10/02/17 Reported Pravastatin Sodium 80 Mg Tablet 0.5 Tab PO QHS 10/02/17 Reported Isosorbide Mononitrate Er (Isosorbide Mononitrate) 30 Mg Tab.er.24h 1 Tab PO DAILY 10/02/17 Reported Impression . FULL CONSULT DICTATED OK TO D/C RESP FAILURE COMPENSATED PT WITH PRIOR H/O LEUKEMIA NO NEED FOR CONSULTING EBER GROSSMAN MD Oct 02, 2017 15:04
--- NOTE | 2017-10-02 15:12 | PDOC2 ---
NEUROLOGY CONSULT Date of Admission Date of Admission DATE: 10/02/17 TIME: 15:06 Reason for Consult Reason for Consult: Altered mental status Referring Physician Referring Physician: Dr. Bruce Source Source: Chart review, Patient History of Present Illness History of Present Illness The patient is a 67-year-old right-handed male who came in with altered mental status to the emergency department. He sees Dr. Marcelo Yates, pain specialist at [facility], for chronic back pain, and is on multiple narcotics. The patient admits that he took too many of his morphine and Dilaudid. He feels much better now. There is no history of stroke, seizure, or head injury. In the emergency room he awakened some up with Narcan, but did not fully get over his encephalopathy until this morning. Plans are for him to be discharged today. Past Medical History Heme/Onc: Cancer (He has chronic lymphocytic leukemia as well as renal cell carcinoma) Past Surgical History Past Surgical History: Other ( right nephrectomy) Family History Family History: No pertinent hx Social History Social History , no tobacco or alcohol Current Medications Current Medications Current Medications Naloxone HCl (Narcan) 0.4 mg 1X ONCE IV Last administered on 10/01/17 14:08; Start 10/01/17 at 13:45; Stop 10/01/17 at 13:54; Status DC Naloxone HCl (Narcan) 0.4 mg STK-MED ONCE .ROUTE ; Start 10/01/17 at 13:54; Stop 10/01/17 at 13:55; Status DC Naloxone HCl (Narcan) 0.4 mg 1X ONCE IV Last administered on 10/01/17 15:15; Start 10/01/17 at 15:15; Stop 10/01/17 at 15:16; Status DC Sodium Chloride 1,000 ml @ 1,000 mls/hr 1X ONCE IV Last administered on 15:15; Start 10/01/17 at 15:15; Stop 10/01/17 at 16:14; Status DC Ondansetron HCl (Zofran) 4 mg PRN Q8HRS PRN IV NAUSEA/VOMITING; Start 10/01/17 at 17:30; Stop 10/02/17 at 08:47; Status DC Dextrose/Sodium Chloride 1,000 ml @ 100 mls/hr Q10H IV Last administered on 04:08; Start 10/01/17 at 17:30 Acetaminophen (Tylenol) 650 mg PRN Q6HRS PRN PO FEVER; Start 10/01/17 at 17:45 Ondansetron HCl (Zofran) 4 mg PRN Q6HRS PRN IV NAUSEA/VOMITING; Start 10/01/17 at 17:45 Morphine Sulfate 2 mg PRN Q2HR PRN IV PAIN; Start 10/01/17 at 17:45 Tramadol HCl (Ultram) 50 mg PRN Q6HRS PRN PO PAIN; Start 10/01/17 at 17:45 Hydralazine HCl (Apresoline Inj) 10 mg PRN Q4HRS PRN IVP ELEVATED BP, SEE COMMENTS Last administered on 10/02/17 03:07; Start 10/01/17 at 17:45 Docusate Sodium (Colace) 100 mg PRN DAILY PRN PO CONSTIPATION; Start 10/01/17 at 17:45 Famotidine (Pepcid) 20 mg QHS IVP Last administered on 10/01/17 22:59; Start 10/01/17 at 21:00 Heparin Sodium (Porcine) (Heparin Sq) 5,000 unit Q8HRS SQ Last administered on 10/02/17 06:04; Start 10/01/17 at 22:00 Active Scripts Active Reported Cymbalta (Duloxetine Hcl) 60 Mg Capsule.dr 1 Cap PO HS Pravastatin Sodium 80 Mg Tablet 0.5 Tab PO QHS Isosorbide Mononitrate Er (Isosorbide Mononitrate) 30 Mg Tab.er.24h 1 Tab PO DAILY Allergies Allergies: Coded Allergies: No Known Drug Allergies (Unverified , 10/01/17) ROS Review of System Negative for fevers, chills, weight loss, shortness of breath, chest pain, indigestion, hematochezia, melena, dysuria. Full 14-point review systems is negative. Physical Exam Physical Examination PHYSICAL EXAMINATION: Vital signs: see above. General appearance is normal and in no acute distress. HEENT: Normocephalic and nontraumatic. Eyes, nose, ears, and throat are unremarkable. Neck is supple. No lymphadenopathy. No bruits are heard over the carotid artery. No crepitus. NEUROLOGICAL EXAMINATION: Mental Status Examination: Alert. Oriented to time, place, and person. [ ] answers questions and follows commends. Pupils are equal round and reactive to light and accommodation. Extraocular movements are intact. Visual field exam shows no defect on the direct confrontation. No motor or sensory deficits on the facial exam. Uvula in the midline and the soft palate elevated symmetrically. No deviation of the tongue to any direction. Gross hearing is normal. Shoulder shrug normal. Muscle tone is normal. Muscle strength is 5. Deep tendon reflexes are 2+ all around. Plantar reflex is with flexion response bilaterally. [id number] test performance is accurate. Alternative movements are accurate. Gait is antalgic. Sensory exam shows no deficits. No cerebellar signs are elicited. Vitals VITALS Vital Signs Date Time Temp Pulse Resp B/P (MAP) Pulse Ox O2 Delivery O2 Flow Rate FiO2 10/02/17 14:00 58 17 171/82 (111) 96 Room Air 10/02/17 12:00 98.8 98.8 10/02/17 08:00 2.0 Labs Labs Laboratory Tests Test 10/01/17 13:36 10/01/17 13:55 10/01/17 14:10 10/01/17 14:16 Glucose (Fingerstick) 88 mg/dL (70-99) O2 Saturation 92 % (92-99) Arterial Blood pH 7.35 (7.35-7.45) Arterial Blood pCO2 at Patient Temp 59 mmHg (35-46) Arterial Blood pO2 at Patient Temp 67 mmHg (65-108) Arterial Blood HCO3 32 mmol/L (21-28) Arterial Blood Base Excess 5 mmol/L (-3-3) FiO2 21.0 Prothrombin Time 13.7 SEC (11.7-14.0) Prothromb Time International Ratio 1.1 (0.8-1.1) Activated Partial Thromboplast Time 21 SEC (24-38) Sodium Level 145 mmol/L (136-145) Potassium Level 4.5 mmol/L (3.5-5.1) Chloride Level 106 mmol/L (98-107) Carbon Dioxide Level 33 mmol/L (21-32) Anion Gap 6 (6-14) Blood Urea Nitrogen 29 mg/dL (8-26) Creatinine 1.7 mg/dL (0.7-1.3) Estimated GFR (Cockcroft-Gault) 40.2 Glucose Level 90 mg/dL (70-99) Calcium Level 9.1 mg/dL (8.5-10.1) Magnesium Level 2.1 mg/dL (1.8-2.4) Total Bilirubin 0.5 mg/dL (0.2-1.0) Direct Bilirubin 0.1 mg/dL (0.0-0.2) Aspartate Amino Transf (AST/SGOT) 26 U/L (15-37) Alanine Aminotransferase (ALT/SGPT) 20 U/L (16-63) Alkaline Phosphatase 57 U/L (46-116) Ammonia 17 mcmol/L (11-34) Creatine Kinase 365 U/L (39-308) Creatine Kinase MB (Mass) 4.2 ng/mL (0.0-3.6) Creatine Kinase MB Relative Index 1.2 % (0-4) Myoglobin < 1 ng/mL (16-96) Troponin I Quantitative < 0.017 ng/mL (0.000-0.055) IN-Lrf-W-Type Natriuretic Peptide 280 pg/mL (0-124) Total Protein 6.3 g/dL (6.4-8.2) Albumin 3.1 g/dL (3.4-5.0) Salicylates Level < 2.8 mg/dL (2.8-20.0) Salicylate Last Dose Date Unknown Salicylate Last Dose Time Unknown Acetaminophen Level 3.6 mcg/ml (10-30) Acetaminophen Last Dose Date Unknown Acetaminophen Last Dose Time Unknown Ethyl Alcohol Level < 10 mg/dL (0-10) White Blood Count 42.8 x10^3/uL (4.0-11.0) Red Blood Count 4.02 x10^6/uL (4.30-5.70) Hemoglobin 11.8 g/dL (13.0-17.5) Hematocrit 37.1 % (39.0-53.0) Mean Corpuscular Volume 92 fL (79-100) Mean Corpuscular Hemoglobin 29 pg (25-35) Mean Corpuscular Hemoglobin Concent 32 g/dL (31-37) Red Cell Distribution Width 15.3 % (11.5-14.5) Platelet Count 242 x10^3/uL (140-400) Neutrophils (%) (Auto) 13 % (31-73) Lymphocytes (%) (Auto) 83 % (24-48) Monocytes (%) (Auto) 3 % (0-9) Eosinophils (%) (Auto) 1 % (0-3) Basophils (%) (Auto) 0 % (0-3) Neutrophils # (Auto) 5.7 x10^3uL (1.8-7.7) Lymphocytes # (Auto) 35.5 x10^3/uL (1.0-4.8) Monocytes # (Auto) 1.3 x10^3/uL (0.0-1.1) Eosinophils # (Auto) 0.2 x10^3/uL (0.0-0.7) Basophils # (Auto) 0.1 x10^3/uL (0.0-0.2) Segmented Neutrophils % 4 % (35-66) Band Neutrophils % 2 % (0-9) Lymphocytes % 88 % (24-48) Monocytes % 6 % (0-10) Smudge Cells Present Platelet Estimate Adequate (ADEQUATE) Ovalocytes Few Test 10/01/17 15:40 10/01/17 16:55 10/01/17 17:30 10/01/17 23:20 Urine Collection Type Unknown Urine Color Yellow Urine Clarity Clear Urine pH 6.0 Urine Specific [place] 1.025 Urine Protein >=300 mg/dL (NEG-TRACE) Urine Glucose (UA) Negative mg/dL (NEG) Urine Ketones (Stick) Negative mg/dL (NEG) Urine Blood Negative (NEG) Urine Nitrite Negative (NEG) Urine Bilirubin Negative (NEG) Urine Urobilinogen Dipstick 1.0 mg/dL (0.2 mg/dL) Urine Leukocyte Esterase Negative (NEG) Urine RBC 0 /HPF (0-2) Urine WBC 0 /HPF (0-4) Urine Squamous Epithelial Cells None /LPF Urine Bacteria 0 /HPF (0-FEW) Urine Hyaline Casts Moderate /HPF Urine Mucus Mod /LPF Urine Opiates Screen Pos (NEG) Urine Methadone Screen Neg (NEG) Urine Barbiturates Neg (NEG) Urine Phencyclidine Screen Neg (NEG) Urine Amphetamine/Methamphetamine Neg (NEG) Urine Benzodiazepines Screen Pos (NEG) Urine Cocaine Screen Neg (NEG) Urine Cannabinoids Screen Neg (NEG) Urine Ethyl Alcohol Neg (NEG) O2 Saturation 95 % (92-99) Arterial Blood pH 7.37 (7.35-7.45) Arterial Blood pCO2 at Patient Temp 52 mmHg (35-46) Arterial Blood pO2 at Patient Temp 80 mmHg (65-108) Arterial Blood HCO3 29 mmol/L (21-28) Arterial Blood Base Excess 3 mmol/L (-3-3) FiO2 30.0 Nasal Screen MRSA (PCR) Negative (Negative) Troponin I Quantitative < 0.017 ng/mL (0.000-0.055) Test 10/02/17 06:03 10/02/17 07:05 Sodium Level 143 mmol/L (136-145) Potassium Level 4.9 mmol/L (3.5-5.1) Chloride Level 108 mmol/L (98-107) Carbon Dioxide Level 31 mmol/L (21-32) Anion Gap 4 (6-14) Blood Urea Nitrogen 24 mg/dL (8-26) Creatinine 1.4 mg/dL (0.7-1.3) Estimated GFR (Cockcroft-Gault) 50.2 Glucose Level 74 mg/dL (70-99) Calcium Level 8.8 mg/dL (8.5-10.1) Troponin I Quantitative < 0.017 ng/mL (0.000-0.055) White Blood Count 37.0 x10^3/uL (4.0-11.0) Red Blood Count 4.32 x10^6/uL (4.30-5.70) Hemoglobin 12.7 g/dL (13.0-17.5) Hematocrit 39.7 % (39.0-53.0) Mean Corpuscular Volume 92 fL (79-100) Mean Corpuscular Hemoglobin 29 pg (25-35) Mean Corpuscular Hemoglobin Concent 32 g/dL (31-37) Red Cell Distribution Width 15.2 % (11.5-14.5) Platelet Count 210 x10^3/uL (140-400) Neutrophils (%) (Auto) 15 % (31-73) Lymphocytes (%) (Auto) 81 % (24-48) Monocytes (%) (Auto) 3 % (0-9) Eosinophils (%) (Auto) 1 % (0-3) Basophils (%) (Auto) 0 % (0-3) Neutrophils # (Auto) 5.6 x10^3uL (1.8-7.7) Lymphocytes # (Auto) 30.0 x10^3/uL (1.0-4.8) Monocytes # (Auto) 1.1 x10^3/uL (0.0-1.1) Eosinophils # (Auto) 0.2 x10^3/uL (0.0-0.7) Basophils # (Auto) 0.1 x10^3/uL (0.0-0.2) Laboratory Tests Test 10/01/17 15:40 10/01/17 16:55 10/01/17 17:30 10/01/17 23:20 Urine Collection Type Unknown Urine Color Yellow Urine Clarity Clear Urine pH 6.0 Urine Specific [place] 1.025 Urine Protein >=300 mg/dL (NEG-TRACE) Urine Glucose (UA) Negative mg/dL (NEG) Urine Ketones (Stick) Negative mg/dL (NEG) Urine Blood Negative (NEG) Urine Nitrite Negative (NEG) Urine Bilirubin Negative (NEG) Urine Urobilinogen Dipstick 1.0 mg/dL (0.2 mg/dL) Urine Leukocyte Esterase Negative (NEG) Urine RBC 0 /HPF (0-2) Urine WBC 0 /HPF (0-4) Urine Squamous Epithelial Cells None /LPF Urine Bacteria 0 /HPF (0-FEW) Urine Hyaline Casts Moderate /HPF Urine Mucus Mod /LPF Urine Opiates Screen Pos (NEG) Urine Methadone Screen Neg (NEG) Urine Barbiturates Neg (NEG) Urine Phencyclidine Screen Neg (NEG) Urine Amphetamine/Methamphetamine Neg (NEG) Urine Benzodiazepines Screen Pos (NEG) Urine Cocaine Screen Neg (NEG) Urine Cannabinoids Screen Neg (NEG) Urine Ethyl Alcohol Neg (NEG) O2 Saturation 95 % (92-99) Arterial Blood pH 7.37 (7.35-7.45) Arterial Blood pCO2 at Patient Temp 52 mmHg (35-46) Arterial Blood pO2 at Patient Temp 80 mmHg (65-108) Arterial Blood HCO3 29 mmol/L (21-28) Arterial Blood Base Excess 3 mmol/L (-3-3) FiO2 30.0 Nasal Screen MRSA (PCR) Negative (Negative) Troponin I Quantitative < 0.017 ng/mL (0.000-0.055) Test 10/02/17 06:03 10/02/17 07:05 Sodium Level 143 mmol/L (136-145) Potassium Level 4.9 mmol/L (3.5-5.1) Chloride Level 108 mmol/L (98-107) Carbon Dioxide Level 31 mmol/L (21-32) Anion Gap 4 (6-14) Blood Urea Nitrogen 24 mg/dL (8-26) Creatinine 1.4 mg/dL (0.7-1.3) Estimated GFR (Cockcroft-Gault) 50.2 Glucose Level 74 mg/dL (70-99) Calcium Level 8.8 mg/dL (8.5-10.1) Troponin I Quantitative < 0.017 ng/mL (0.000-0.055) White Blood Count 37.0 x10^3/uL (4.0-11.0) Red Blood Count 4.32 x10^6/uL (4.30-5.70) Hemoglobin 12.7 g/dL (13.0-17.5) Hematocrit 39.7 % (39.0-53.0) Mean Corpuscular Volume 92 fL (79-100) Mean Corpuscular Hemoglobin 29 pg (25-35) Mean Corpuscular Hemoglobin Concent 32 g/dL (31-37) Red Cell Distribution Width 15.2 % (11.5-14.5) Platelet Count 210 x10^3/uL (140-400) Neutrophils (%) (Auto) 15 % (31-73) Lymphocytes (%) (Auto) 81 % (24-48) Monocytes (%) (Auto) 3 % (0-9) Eosinophils (%) (Auto) 1 % (0-3) Basophils (%) (Auto) 0 % (0-3) Neutrophils # (Auto) 5.6 x10^3uL (1.8-7.7) Lymphocytes # (Auto) 30.0 x10^3/uL (1.0-4.8) Monocytes # (Auto) 1.1 x10^3/uL (0.0-1.1) Eosinophils # (Auto) 0.2 x10^3/uL (0.0-0.7) Basophils # (Auto) 0.1 x10^3/uL (0.0-0.2) Images Images Brain MRI: FINDINGS: There is no restricted diffusion to suggest acute or subacute infarction. There is no susceptibility effect to suggest hemorrhage. There is no mass effect or midline shift. There is no hydrocephalus. There are multiple scattered focal areas of signal change throughout the cerebral white matter and robles, a nonspecific finding. There is a chronic lacunar infarct or dilated perivascular space within the left putamen. There is cerebral atrophy. There are prominent arachnoid granulations within the occiput, of no clinical significance. There are normal flow voids within the cerebral vessels. The orbits, paranasal sinuses and mastoid air cells are unremarkable. IMPRESSION: 1. No acute intracranial finding. 2. Extensive areas of signal change throughout the cerebral white matter and robles, likely due to chronic small vessel disease. 3. Chronic lacunar infarct or dilated perivascular space within the left putamen. 4. Cerebral atrophy. Assessment/Plan Assessment/Plan Impression: Toxic encephalopathy due to narcotics, no evidence on MRI or bedside examination of any stroke or transient ischemic attack. There is no sign that he had a seizure. Recommendations: I agree with discharge Follow-up with his pain specialist Follow-up with neurology as needed. Thank you for letting me help with the patient's care. RENATA RIVAS MD Oct 02, 2017 15:12
[2017-10-02] MEDS ORDERED: POTA20TA82 PO (15:22)
[2017-10-02] MEDS ORDERED: RISP0.5T24 PO (15:22)
[2017-10-02] MEDS ORDERED: FURO40TA4 PO (15:22)
[2017-10-02] MEDS ORDERED: MORP30TA83 PO (15:22)
[2017-10-02] MEDS ORDERED: TAMS0.4C2 PO (15:22)
[2017-10-02] MEDS ORDERED: DIVA500T9 PO (15:22)
[2017-10-02] MEDS ORDERED: GABA-586 PO (15:22)
[2017-10-02] MEDS ORDERED: TIZA4TAB PO (15:22)
[2017-10-02] MEDS ORDERED: ASPI-482 PO (15:22)
[2017-10-02] MEDS ORDERED: MULT1TAB52 PO (15:22)
[2017-10-02] MEDS ORDERED: ALLO300T PO (15:22)
--- NOTE | 2017-10-03 00:35 | CONS ---
DATE OF CONSULTATION: 10/02/2017 ATTENDING PHYSICIAN: Isabella Jean DO DICTATING PHYSICIAN: Eber Yao MD REASON FOR CONSULTATION: The patient is seen in pulmonary consultation at the request of Dr. Bruce for hypercapnic respiratory failure. HISTORY OF PRESENT ILLNESS: The patient is a 67-year-old with multiple medical problems, is on chronic opiates. He presented with mental status change. He was seen in the Emergency Room, placed on BiPAP. His initial arterial blood gas revealed a pH of 7.35, PaCO2 of 59, pO2 of 67. This was on room air. The patient was placed on BiPAP and transferred to the intensive care unit. Urine drug screen was positive for opiates, benzodiazepines. No alcohol. The patient also had an elevated white count. He had a chest x-ray, which I personally reviewed, which revealed no evidence of acute infiltrates. His CT head likewise revealed no acute findings. MRI of the head revealed no acute intracranial findings. His who is currently at the bedside states that he has obstructive sleep apnea, uses BiPAP at home during bedtime and throughout the day when he sleeps. PAST MEDICAL HISTORY: Otherwise remarkable for chronic pain syndrome, obstructive sleep apnea, obesity hypoventilation, morbid obesity. He has had previous nephrectomy, orthopedic surgery, rotator cuff repair, prior history of substance abuse. REVIEW OF SYSTEMS: As indicated above, otherwise, a 10-point system was reviewed and negative. CURRENT MEDICATIONS: List was reviewed. PHYSICAL EXAMINATION: GENERAL: Morbid obese individual in no respiratory distress. VITAL SIGNS: Stable. O2 saturation was greater than 92%. HEENT: Eyes, the sclerae were nonicteric. NECK: Jugular venous distention could not be assessed secondary to body habitus. LUNGS: Adequate airway flow, no wheezes. CARDIOVASCULAR: Regular rate and rhythm with S1, S2, no S3. ABDOMEN: Soft, obese. EXTREMITIES: No clubbing, cyanosis and some edema. NEUROLOGIC: The patient was awake, alert, following commands. A detailed neuro exam was not performed. IMPRESSION: 1. Compensated acute hypercapnic respiratory failure. 2. Obstructive sleep apnea, obesity hypoventilation. 3. Mild protein malnutrition, present upon admission. 4. Morbid obesity. 5. Leukocytosis, etiology unclear. 6. Acute renal insufficiency. PLAN: 1. The patient is scheduled to be discharged home later on today, from a pulmonary standpoint of view I do not see any reason for him to continue hospitalization. 2. We will consult Hematology prior to discharge to address his leukocytosis. 3. I have spoken with the and the patient and explained to him that he needs to avoid narcotics as much as possible, revisit with his pain doctor and make adjustments. 4. Continue BiPAP at home. 5. I went over the clinical symptoms and signs of acute hypercapnia including respiratory distress, confusion, informed the that if he is to become increasingly more confused and she could not awaken him that she needs to summon EMS. 6. I also spoke about the importance of weight reduction. I do appreciate the privilege in sharing in the patient's care. EBER CHAVEZ MD DR: CHELSEA/wyatt JOB#: [id number] / [id number]
--- NOTE | 2017-10-03 06:31 | CONS ---
DATE OF CONSULTATION: 10/02/2017 MEDICAL ONCOLOGY CONSULTATION Consultation requested by Dr. Razia Bruce. REASON FOR CONSULTATION: Leukocytosis with elevated lymphocytes in a patient with CLL. HISTORY OF PRESENT ILLNESS: The patient is a 67-year-old gentleman who has been diagnosed with chronic lymphocytic leukemia with a bone marrow biopsy in the past. Review of the old records indicates that his WBC was high in 10/2009 at 31,000 with 87% lymphocytes. He also has had a history of right cervical lymphadenopathy in 03/2017 for which he received prednisone taper. He has had a CT scan of the chest, abdomen and pelvis on 03/28/2017 that did not reveal any lymphadenopathy, but there was a mass in the right kidney. He underwent right robotic nephrectomy on 06/12/2017, which revealed clear cell carcinoma, stage 1, T1a N0 M0 and he is being followed by Urology. He has been evaluated by Dr. Crystal at [facility] for CLL in the past and he was last seen in 06/2017 and continued observation was recommended. I was asked to see the patient for leukocytosis. He was admitted to [facility] on 10/01/2017 with altered mental status. It is thought to be due to drug overdose. He has been on Dilaudid and morphine for back pain. CBC on 10/01/2017 revealed a WBC of 42.8 with 83% lymphocytes, hemoglobin 11.8 and platelet count of 242 and hence I was consulted for further evaluation. PAST MEDICAL HISTORY: Renal cell carcinoma, CLL, anxiety, arthritis, chronic back pain, cataract, chronic kidney disease, depression, enlarged prostate, gout, gynecomastia, heart attack, hyperlipidemia, hypertension, osteoarthritis, obstructive sleep apnea. PAST SURGICAL HISTORY: Back surgery, bone marrow biopsy, colonoscopy, hand surgery, appendectomy, septoplasty, tonsillectomy, laparoscopic nephrectomy. FAMILY HISTORY: Positive for brain tumor, cardiac disease. SOCIAL HISTORY: He is a former smoker. He has a history of Agent Cole exposure in [place] while he was in the . REVIEW OF SYSTEMS: A 12-point review of system was performed. Pertinent positives are mentioned in the history of present illness. Rest of the system review is negative. PHYSICAL EXAMINATION: GENERAL APPEARANCE: The patient is a 67-year-old gentleman who is well developed, well nourished, and in no acute cardiorespiratory distress. VITAL SIGNS: Blood pressure 171/82, temperature 98.8. HEENT: Head: Atraumatic, normocephalic. Eyes: No icterus. NECK: Supple. CHEST: Bilaterally symmetrical. HEART: S1, S2 normal. ABDOMEN: Soft, nontender. CENTRAL NERVOUS SYSTEM: No focal deficits. LYMPHATICS: No lymphadenopathy. SKIN: No rashes. PSYCHOLOGIC: Mood and affect are appropriate. MUSCULOSKELETAL: No joint effusions. LABORATORY DATA: From 10/01/2017, WBC 42.8, hemoglobin 11.8, platelet count 242, lymphocytes 83%. IMPRESSION AND PLAN: 1. Chronic lymphocytic leukemia. The patient was seen by his oncologist on 07/07/2017. His white blood cell count is now worse at 42,800. However, the hemoglobin and platelet counts are still unremarkable and hence he would not meet the criteria for chemotherapy. I have advised him to follow up with his oncologist, Dr. Crystal, upon discharge. All his questions were answered. 2. Anemia, mild. Continue to monitor. 3. Renal cell carcinoma, status post right robotic nephrectomy on 06/12/2017. He had a stage 1 clear cell carcinoma of the kidney, now advised to continue to follow up with Urology upon discharge. 4. Altered mental status, thought to be due to opioid overdose. He is improving. I appreciate Neurology consultation. MRI of the brain on 10/01/2017 does not reveal any acute findings. REN MCDUFFIE MD DR: CHASE/wyatt JOB#: [id number] / [id number] TIAN Avalos MD MTDD
== END 2017-10-02 15:45 | disposition home or self-care (01) | DRG 917 ==
LOC: ER 13:14 → 1 WEST ICU 16:35
PROVIDERS: ADMIT Internal Medicine; ATTEND Internal Medicine
PROC: 5A09357 Assistance with Respiratory Ventilation, Less than 24 Consecutive Hours, Continuous Positive Airway Pressure (ICD-10-PCS; principal; 2017-10-01)
DX: T40.601A Poisoning by unspecified narcotics, accidental (unintentional), initial encounter (principal); J96.02 Acute respiratory failure with hypercapnia; N17.0 Acute kidney failure with tubular necrosis; G92 Toxic encephalopathy; C91.10 Chronic lymphocytic leukemia of B-cell type not having achieved remission; C64.9 Malignant neoplasm of unspecified kidney, except renal pelvis; E44.1 Mild protein-calorie malnutrition; E66.2 Morbid (severe) obesity with alveolar hypoventilation; F32.9 Major depressive disorder, single episode, unspecified; D64.9 Anemia, unspecified; F41.9 Anxiety disorder, unspecified; Z68.37 Body mass index [BMI] 37.0-37.9, adult; E78.5 Hyperlipidemia, unspecified; G47.33 Obstructive sleep apnea (adult) (pediatric); G89.4 Chronic pain syndrome; I12.9 Hypertensive chronic kidney disease with stage 1 through stage 4 chronic kidney disease, or unspecified chronic kidney disease; I25.2 Old myocardial infarction; M10.9 Gout, unspecified; N18.9 Chronic kidney disease, unspecified; N40.0 Benign prostatic hyperplasia without lower urinary tract symptoms; Z82.49 Family history of ischemic heart disease and other diseases of the circulatory system; Z85.528 Personal history of other malignant neoplasm of kidney; Z87.891 Personal history of nicotine dependence; Z90.5 Acquired absence of kidney; M19.90 Unspecified osteoarthritis, unspecified site; F19.10 Other psychoactive substance abuse, uncomplicated; Y92.89 Other specified places as the place of occurrence of the external cause
CPT/HCPCS: 36415; 36600; 51702; 70450; 70551; 71010; 80048; 80076; 80307; 80329; 81001; 82140; 82553; 82805; 82962; 83735; 83874; 83880; 84484; 85007; 85025; 85610; 85730; 87040; 87641; 93005; 94660; 96361; 96374; 96376; G0480; J0360; J2310; J7030; S0028; 99285-25; G0479

== ENCOUNTER 2017-12-25 05:30 | Inpatient (IN) | payer MEDICARE, OTHER ==
[2017-12-25] MEDS: IV NORMAL SALINE 1000ML BAG 1,000 ML IV ×14 (05:40→23:58)
[2017-12-25 06:29] LABS: ANION GAP 10 (6-14); BLOOD UREA NITROGEN 35 mg/dL (8-26); BUN/CREATININE RATIO 17 (6-20); CALCIUM 8.5 mg/dL (8.5-10.1); CARBON DIOXIDE 28 mmol/L (21-32); CHLORIDE 104 mmol/L (98-107); CREATININE 2.1 mg/dL (0.7-1.3); GFR 31.5; GLUCOSE 105 mg/dL (70-99); SODIUM 142 mmol/L (136-145)
[2017-12-25 06:30] LABS: BASO % 0 % (0-3); EOS # 0.2 x10^3/uL (0.0-0.7); EOS % 1 % (0-3); HEMATOCRIT 37.2 % (39.0-53.0); HEMOGLOBIN 12.1 g/dL (13.0-17.5); LYMPH % 84 % (24-48); MEAN CORPUSCULAR HEMOGLOBIN 31 pg (25-35); MEAN CORPUSCULAR HGB CONC 33 g/dL (31-37); MEAN CORPUSCULAR VOLUME 94 fL (79-100); MONO # 0.7 x10^3/uL (0.0-1.1); MONO % 2 % (0-9); NEUT # 3.8 x10^3uL (1.8-7.7); NEUT % 13 % (31-73); PLATELET COUNT 188 x10^3/uL (140-400); RED BLOOD COUNT 3.95 x10^6/uL (4.30-5.70); RED CELL DISTRIBUTION WIDTH 15.2 % (11.5-14.5); WHITE BLOOD COUNT 29.7 x10^3/uL (4.0-11.0)
[2017-12-25 06:36] LABS: ALBUMIN/GLOBULIN RATIO 1.2 (1.0-1.7); ALK PHOS 47 U/L (46-116); ALT (SGPT) 22 U/L (16-63); AST (SGOT) 21 U/L (15-37); LIPASE 51 U/L (73-393); TOTAL BILIRUBIN 0.8 mg/dL (0.2-1.0); TOTAL PROTEIN 5.5 g/dL (6.4-8.2)
[2017-12-25 06:37] LABS: ADD MAN DIFF? YES
[2017-12-25 06:39] LABS: TROPONINI < 0.017 ng/mL (0.000-0.055)
[2017-12-25 06:43] LABS: NT-PRO BNP 268 pg/mL (0-124)
[2017-12-25 06:43] LABS: CKMB INDEX 3.7 % (0-4); CKMB MASS 6.6 ng/mL (0.0-3.6); CREATINE KINASE 177 U/L (39-308)
[2017-12-25] MEDS: ONDANSETRON PF 4 MG/2 ML VIAL. IV ×2 (07:41)
[2017-12-25] MEDS ORDERED: ACETAMINOPHEN 325 MG TABLET. PO ×4 (08:00→10:45)
[2017-12-25] MEDS ORDERED: ONDANSETRON PF 4 MG/2 ML VIAL. IV ×4 (08:00→10:45)
[2017-12-25] MEDS: CIPROFLOXACIN 400MG PREMIX 200 ML IV ×4 (09:23→21:14)
[2017-12-25 09:24] LABS: LACTIC ACID 0.8 mmol/L (0.4-2.0)
[2017-12-25 10:39] LABS: % LYMPHS 95 % (24-48); % SEGS 5 % (35-66); PLT ESTIMATE ADEQUATE (ADEQUATE)
[2017-12-25 12:16] LABS: AMMONIA 19 mcmol/L (11-34)
[2017-12-25 13:16] LABS: BASE EXCESS ABG -2 mmol/L (-3-3); HCO3 ABG 25 mmol/L (21-28); PCO2 ABG 55 mmHg (35-46); PO2 ABG 90 mmHg (65-108); SAT O2 ABG 95 % (92-99)
[2017-12-25 13:18] LABS: PH ABG 7.29 (7.35-7.45)
[2017-12-25] MEDS: ASPIRIN ENTERIC COATED 81 MG TABLET.DR. PO ×2 (14:14)
[2017-12-25] MEDS: ATORVASTATIN CALCIUM 10 MG TABLET. PO ×2 (21:13)
[2017-12-25 21:32] LABS: BILIRUBIN,URINE NEGATIVE (NEG); CLARITY,URINE CLEAR; COLOR,URINE YELLOW; GLUCOSE,URINE NEGATIVE (NEG); NITRITE,URINE NEGATIVE (NEG); PROTEIN,URINE NEGATIVE (NEG-TRACE)
[2017-12-25 21:43] LABS: BACTERIA,URINE 0 /HPF (0-FEW); RBC,URINE 0 /HPF (0-2); WBC,URINE 0 /HPF (0-4)
[2017-12-25 21:44] LABS: HYALINE CASTS, URINE MANY /HPF; SQUAMOUS EPITHELIAL CELL,UR OCC /LPF
[2017-12-26 02:16] LABS: MRSA BY PCR Negative (Negative)
[2017-12-26 04:34] LABS: ADD MAN DIFF? NO
[2017-12-26 04:41] LABS: BASO % 0 % (0-3); EOS # 0.3 x10^3/uL (0.0-0.7); EOS % 1 % (0-3); HEMATOCRIT 35.7 % (39.0-53.0); HEMOGLOBIN 11.6 g/dL (13.0-17.5); LYMPH # 19.6 x10^3/uL (1.0-4.8); LYMPH % 78 % (24-48); MEAN CORPUSCULAR HEMOGLOBIN 31 pg (25-35); MEAN CORPUSCULAR HGB CONC 33 g/dL (31-37); MEAN CORPUSCULAR VOLUME 96 fL (79-100); MONO # 0.9 x10^3/uL (0.0-1.1); MONO % 4 % (0-9); NEUT # 4.4 x10^3uL (1.8-7.7); NEUT % 17 % (31-73); PLATELET COUNT 152 x10^3/uL (140-400); RED BLOOD COUNT 3.72 x10^6/uL (4.30-5.70); RED CELL DISTRIBUTION WIDTH 15.8 % (11.5-14.5); WHITE BLOOD COUNT 25.2 x10^3/uL (4.0-11.0)
[2017-12-26 05:05] LABS: ANION GAP 9 (6-14); BLOOD UREA NITROGEN 30 mg/dL (8-26); CALCIUM 8.6 mg/dL (8.5-10.1); CARBON DIOXIDE 25 mmol/L (21-32); CHLORIDE 109 mmol/L (98-107); CREATININE 1.6 mg/dL (0.7-1.3); GFR 43.1; GLUCOSE 78 mg/dL (70-99); POTASSIUM 4.6 mmol/L (3.5-5.1); SODIUM 143 mmol/L (136-145)
[2017-12-26 05:37] LABS: BARBITURATES NEG (NEG); BENZODIAZEPINES POS (NEG); CANNABINOIDS NEG (NEG); COCAINE NEG (NEG); METHADONE NEG (NEG); OPIATES POS (NEG); PHENCYCLIDINE NEG (NEG)
[2017-12-26 05:42] LABS: AMPHETAMINE/METHAMPHETAMINE NEG (NEG); ETHANOL, URINE NEG (NEG)
[2017-12-26] MEDS: IV NORMAL SALINE 1000ML BAG 1,000 ML IV ×2 (08:28)
[2017-12-26] MEDS: CIPROFLOXACIN 400MG PREMIX 200 ML IV ×2 (10:25)
[2017-12-26] MEDS: ASPIRIN ENTERIC COATED 81 MG TABLET.DR. PO ×2 (10:29)
[2017-12-26] MEDS ORDERED: ACETAMINOPHEN 500 MG TABLET PO ×2 (12:15)
[2017-12-26] MEDS ORDERED: LOPERAMIDE 2 MG CAPSULE PO ×2 (12:15)
[2017-12-26] MEDS ORDERED: tiZANidine 4 MG TABLET. PO ×2 (12:15)
[2017-12-26] MEDS: FUROSEMIDE 40 MG TABLET. PO ×2 (13:25)
[2017-12-26] MEDS: MORPHINE ER 30 MG TABLET.ER PO ×2 (13:26)
[2017-12-26] MEDS: ISOSORBIDE MONONITRATE ER 30 MG TAB.ER.24H PO ×2 (13:27)
[2017-12-26] MEDS: ALLOPURINOL 300 MG TABLET. PO ×2 (13:28)
[2017-12-26] MEDS: POTASSIUM CHLORIDE 20 MEQ TABLET.ER. PO ×2 (13:28)
[2017-12-26] MEDS: MULTIVITAMIN with MINERAL TABLET. PO ×2 (13:28)
[2017-12-26] MEDS ORDERED: LACTOBACILLUS RHAMNOSUS GG 1 CAPSULE. PO ×2 (21:00)
[2017-12-26] MEDS ORDERED: DIVALPROEX DELAYED RELEASE 500 MG TABLET.DR. PO ×2 (21:00)
[2017-12-26] MEDS ORDERED: TAMSULOSIN 0.4 MG CAP.ER.24H. PO ×2 (21:00)
[2018-01-01 07:46] LABS: POC GLUCOSE 93 mg/dL (70-99)
== END 2017-12-26 16:30 | disposition home or self-care (01) | DRG 917 ==
LOC: ER 05:30 → 5 NORTH 08:03
PROVIDERS: Internal Medicine
PROC: 5A09357 Assistance with Respiratory Ventilation, Less than 24 Consecutive Hours, Continuous Positive Airway Pressure (ICD-10-PCS; principal; 2017-12-26)
DX: T40.2X1A Poisoning by other opioids, accidental (unintentional), initial encounter (principal); G93.41 Metabolic encephalopathy; J96.22 Acute and chronic respiratory failure with hypercapnia; N17.9 Acute kidney failure, unspecified; E87.2 Acidosis; W06.XXXA Fall from bed, initial encounter; E86.0 Dehydration; G47.33 Obstructive sleep apnea (adult) (pediatric); G89.4 Chronic pain syndrome; I51.7 Cardiomegaly; E66.9 Obesity, unspecified; M54.9 Dorsalgia, unspecified; J44.9 Chronic obstructive pulmonary disease, unspecified; Z82.49 Family history of ischemic heart disease and other diseases of the circulatory system; Z85.528 Personal history of other malignant neoplasm of kidney; Z85.6 Personal history of leukemia; Z87.891 Personal history of nicotine dependence; Z90.49 Acquired absence of other specified parts of digestive tract; Z68.36 Body mass index [BMI] 36.0-36.9, adult; Y93.89 Activity, other specified; Y92.098 Other place in other non-institutional residence as the place of occurrence of the external cause; Y99.8 Other external cause status; Z90.5 Acquired absence of kidney
CPT/HCPCS: 36415; 36600; 70450; 71045; 72125; 72128; 72131; 80048; 80053; 80307; 81001; 82140; 82553; 82805; 82962; 83605; 83690; 83880; 84484; 85007; 85025; 87040; 87641; 93005; 94660; 96361; 96365; 96375; 97166-GO; 99285-25; J0744; J2405; J3490; J7030

== ENCOUNTER 2018-01-05 10:46 | Inpatient (IN) | payer MEDICARE ==
[2018-01-05 12:08] LABS: BASO # 0.1 x10^3/uL (0.0-0.2); BASO % 0 % (0-3); EOS # 0.1 x10^3/uL (0.0-0.7); EOS % 0 % (0-3); HEMATOCRIT 34.8 % (39.0-53.0); HEMOGLOBIN 11.3 g/dL (13.0-17.5); LYMPH # 26.6 x10^3/uL (1.0-4.8); LYMPH % 70 % (24-48); MEAN CORPUSCULAR HEMOGLOBIN 31 pg (25-35); MEAN CORPUSCULAR HGB CONC 33 g/dL (31-37); MEAN CORPUSCULAR VOLUME 94 fL (79-100); MONO # 1.1 x10^3/uL (0.0-1.1); MONO % 3 % (0-9); NEUT # 10.2 x10^3uL (1.8-7.7); NEUT % 27 % (31-73); PLATELET COUNT 258 x10^3/uL (140-400); RED CELL DISTRIBUTION WIDTH 15.5 % (11.5-14.5); WHITE BLOOD COUNT 38.1 x10^3/uL (4.0-11.0)
[2018-01-05 12:10] LABS: ADD MAN DIFF? YES
[2018-01-05 12:18] LABS: BILIRUBIN,URINE NEGATIVE (NEG); CLARITY,URINE CLOUDY; COLOR,URINE YELLOW; GLUCOSE,URINE NEGATIVE (NEG); NITRITE,URINE NEGATIVE (NEG); PH,URINE 5.5; PROTEIN,URINE 100 mg/dL (NEG-TRACE); UROBILINOGEN,URINE 0.2 mg/dL (0.2 mg/dL)
[2018-01-05 12:22] LABS: AMMONIA 15 mcmol/L (11-34)
[2018-01-05 12:25] LABS: AMORPHOUS SEDIMENT,UR PRESENT /HPF; BACTERIA,URINE 0 /HPF (0-FEW); RBC,URINE 0 /HPF (0-2); SQUAMOUS EPITHELIAL CELL,UR FEW /LPF; WBC,URINE 0 /HPF (0-4)
[2018-01-05 12:27] LABS: LACTIC ACID 1.1 mmol/L (0.4-2.0)
[2018-01-05 12:33] LABS: ANION GAP 6 (6-14); BLOOD UREA NITROGEN 32 mg/dL (8-26); BUN/CREATININE RATIO 21 (6-20); CALCIUM 9.1 mg/dL (8.5-10.1); CARBON DIOXIDE 32 mmol/L (21-32); CHLORIDE 105 mmol/L (98-107); CREATININE 1.5 mg/dL (0.7-1.3); GFR 46.4; GLUCOSE 125 mg/dL (70-99); POTASSIUM 4.5 mmol/L (3.5-5.1); SODIUM 143 mmol/L (136-145)
[2018-01-05 12:34] LABS: BARBITURATES NEG (NEG); BENZODIAZEPINES POS (NEG); CANNABINOIDS NEG (NEG); COCAINE NEG (NEG); METHADONE NEG (NEG); OPIATES POS (NEG); PHENCYCLIDINE NEG (NEG)
[2018-01-05 12:37] LABS: ALBUMIN 2.8 g/dL (3.4-5.0); ALBUMIN/GLOBULIN RATIO 0.9 (1.0-1.7); ALK PHOS 47 U/L (46-116); ALT (SGPT) 17 U/L (16-63); AMPHETAMINE/METHAMPHETAMINE NEG (NEG); AST (SGOT) 13 U/L (15-37); C-REACTIVE PROTEIN 20.4 mg/L (0-3.3); ETHANOL, URINE NEG (NEG); TOTAL BILIRUBIN 0.7 mg/dL (0.2-1.0); TOTAL PROTEIN 5.9 g/dL (6.4-8.2)
[2018-01-05 12:37] LABS: ETHANOL < 10 mg/dL (0-10)
[2018-01-05 12:38] LABS: TROPONINI < 0.017 ng/mL (0.000-0.055)
[2018-01-05 12:38] LABS: BASE EXCESS ABG 4 mmol/L (-3-3); HCO3 ABG 29 mmol/L (21-28); PCO2 ABG 47 mmHg (35-46); PH ABG 7.41 (7.35-7.45); PO2 ABG 76 mmHg (65-108); SAT O2 ABG 95 % (92-99)
[2018-01-05 13:04] LABS: INFLUENZA A PATIENT NEGATIVE (NEGATIVE); INFLUENZA B PATIENT NEGATIVE (NEGATIVE); OBC FLU VALID
[2018-01-05] MEDS: IV NORMAL SALINE 1000ML BAG 1,000 ML IV (13:38)
[2018-01-05 14:14] LABS: % BANDS 6 % (0-9); % BASOS 1 % (0-3); % LYMPHS 76 % (24-48); % MONOS 1 % (0-10); % SEGS 16 % (35-66); PLT ESTIMATE ADEQUATE (ADEQUATE); SMUDGE CELLS PRESENT
[2018-01-05 14:15] LABS: TOXIC GRANULATION SLIGHT
[2018-01-05 14:20] LABS: SEDIMENTATION RATE 13 (0-15)
[2018-01-05] MEDS ORDERED: PIP/TAZO PER PHARMACY MC (15:00)
[2018-01-05] MEDS ORDERED: DOCUSATE SODIUM 100 MG CAPSULE. PO (15:00)
[2018-01-05] MEDS ORDERED: traMADol 50 MG TABLET PO (15:00)
[2018-01-05] MEDS ORDERED: IV NORMAL SALINE 1000ML BAG 1,000 ML IV (15:00)
[2018-01-05] MEDS ORDERED: ONDANSETRON PF 4 MG/2 ML VIAL. IV (15:00)
[2018-01-05] MEDS ORDERED: ACETAMINOPHEN 325 MG TABLET. PO (15:00)
[2018-01-05] MEDS ORDERED: hydrALAZINE 20 MG/ML VIAL. IVP (15:00)
[2018-01-05] MEDS: IPRATRPIUM/ALBUTEROL 0.5/2.5MG 3 ML NEBU. NEB ×2 (16:00→19:57)
[2018-01-05] MEDS: PIPERACILLIN/TAZOBACTAM 4.5 GM in IV NORMAL SALINE 100ML 100 ML IV (16:37)
[2018-01-05] MEDS: VANCOMYCIN 2 GM in IV NORMAL SALINE 500ML BAG 500 ML IV (16:37)
[2018-01-05] MEDS: ENOXAPARIN 40 MG/0.4 ML SYRINGE. SQ (16:43)
[2018-01-05] MEDS: MORPHINE SULFATE 2 MG/ML DISP.SYRIN. IV (16:49)
[2018-01-05] MEDS: VANCOMYCIN PER PHARMACY MC (17:48)
[2018-01-05] MEDS ORDERED: LACTOBACILLUS RHAMNOSUS GG 1 CAPSULE. PO (21:00)
[2018-01-05] MEDS: TAMSULOSIN 0.4 MG CAP.ER.24H. PO (21:39)
[2018-01-05] MEDS: DIVALPROEX DELAYED RELEASE 500 MG TABLET.DR. PO (21:39)
[2018-01-05] MEDS: ATORVASTATIN CALCIUM 10 MG TABLET. PO (21:39)
[2018-01-06] MEDS: PIPERACILLIN/TAZOBACTAM 4.5 GM in IV NORMAL SALINE 100ML 100 ML IV ×4 (00:22→19:40)
[2018-01-06 05:53] LABS: ADD MAN DIFF? NO
[2018-01-06 06:05] LABS: BASO % 0 % (0-3); EOS # 0.1 x10^3/uL (0.0-0.7); EOS % 0 % (0-3); HEMATOCRIT 30.9 % (39.0-53.0); HEMOGLOBIN 9.9 g/dL (13.0-17.5); LYMPH # 20.3 x10^3/uL (1.0-4.8); LYMPH % 74 % (24-48); MEAN CORPUSCULAR HEMOGLOBIN 30 pg (25-35); MEAN CORPUSCULAR HGB CONC 32 g/dL (31-37); MEAN CORPUSCULAR VOLUME 94 fL (79-100); MONO # 0.8 x10^3/uL (0.0-1.1); MONO % 3 % (0-9); NEUT # 6.4 x10^3uL (1.8-7.7); NEUT % 23 % (31-73); PLATELET COUNT 214 x10^3/uL (140-400); RED BLOOD COUNT 3.29 x10^6/uL (4.30-5.70); RED CELL DISTRIBUTION WIDTH 14.9 % (11.5-14.5); WHITE BLOOD COUNT 27.7 x10^3/uL (4.0-11.0)
[2018-01-06 06:20] LABS: ANION GAP 5 (6-14); BLOOD UREA NITROGEN 22 mg/dL (8-26); CALCIUM 8.8 mg/dL (8.5-10.1); CARBON DIOXIDE 32 mmol/L (21-32); CHLORIDE 106 mmol/L (98-107); CREATININE 1.3 mg/dL (0.7-1.3); GFR 54.7; GLUCOSE 87 mg/dL (70-99); POTASSIUM 4.3 mmol/L (3.5-5.1); SODIUM 143 mmol/L (136-145)
[2018-01-06] MEDS: IPRATRPIUM/ALBUTEROL 0.5/2.5MG 3 ML NEBU. NEB ×4 (07:23→18:21)
[2018-01-06] MEDS ORDERED: LISINOPRIL 40 MG TABLET. PO (09:00)
[2018-01-06] MEDS: ALLOPURINOL 100 MG TABLET. PO (09:54)
[2018-01-06] MEDS: ASPIRIN ENTERIC COATED 81 MG TABLET.DR. PO (09:54)
[2018-01-06] MEDS: FUROSEMIDE 40 MG TABLET. PO (09:54)
[2018-01-06] MEDS: POTASSIUM CHLORIDE 20 MEQ TABLET.ER. PO (09:54)
[2018-01-06] MEDS: CHOLECALCIFEROL (VITAMIN D3) 1,000 UNIT TABLET PO (09:55)
[2018-01-06] MEDS: MULTIVITAMIN with MINERAL TABLET. PO (09:55)
[2018-01-06] MEDS: ISOSORBIDE MONONITRATE ER 30 MG TAB.ER.24H PO (09:55)
[2018-01-06] MEDS: DULoxetine HCL 30 MG CAPSULE.DR PO (09:58)
[2018-01-06] MEDS: ALBUTEROL SULFATE 2.5 MG/3 ML NEBU. NEB (11:02)
[2018-01-06] MEDS ORDERED: cefTRIAXone IV Push 1 GM VIAL. IVP (13:00)
[2018-01-06] MEDS: ENOXAPARIN 40 MG/0.4 ML SYRINGE. SQ (14:36)
[2018-01-06] MEDS ORDERED: DEXTROSE IV (17:00)
[2018-01-06] MEDS ORDERED: NACL IV (17:00)
[2018-01-06] MEDS ORDERED: VANCOMYCIN IV (17:00)
[2018-01-06] MEDS: MORPHINE SULFATE 2 MG/ML DISP.SYRIN. IV (19:39)
[2018-01-06] MEDS: TAMSULOSIN 0.4 MG CAP.ER.24H. PO (20:52)
[2018-01-06] MEDS: DIVALPROEX DELAYED RELEASE 500 MG TABLET.DR. PO (20:52)
[2018-01-06] MEDS: ATORVASTATIN CALCIUM 10 MG TABLET. PO (20:53)
[2018-01-07] MEDS: PIPERACILLIN/TAZOBACTAM 4.5 GM in IV NORMAL SALINE 100ML 100 ML IV ×4 (00:19→19:27)
[2018-01-07 05:25] LABS: ADD MAN DIFF? NO
[2018-01-07 05:35] LABS: BASO % 0 % (0-3); EOS % 0 % (0-3); HEMATOCRIT 32.3 % (39.0-53.0); HEMOGLOBIN 10.6 g/dL (13.0-17.5); LYMPH # 20.8 x10^3/uL (1.0-4.8); LYMPH % 80 % (24-48); MEAN CORPUSCULAR HEMOGLOBIN 31 pg (25-35); MEAN CORPUSCULAR HGB CONC 33 g/dL (31-37); MEAN CORPUSCULAR VOLUME 93 fL (79-100); MONO # 0.6 x10^3/uL (0.0-1.1); MONO % 2 % (0-9); NEUT # 4.6 x10^3uL (1.8-7.7); NEUT % 18 % (31-73); PLATELET COUNT 219 x10^3/uL (140-400); RED BLOOD COUNT 3.46 x10^6/uL (4.30-5.70); RED CELL DISTRIBUTION WIDTH 14.9 % (11.5-14.5)
[2018-01-07] MEDS: IPRATRPIUM/ALBUTEROL 0.5/2.5MG 3 ML NEBU. NEB ×3 (06:01→15:26)
[2018-01-07 06:44] LABS: ANION GAP 9 (6-14); BLOOD UREA NITROGEN 19 mg/dL (8-26); CALCIUM 8.8 mg/dL (8.5-10.1); CARBON DIOXIDE 30 mmol/L (21-32); CHLORIDE 106 mmol/L (98-107); CREATININE 1.5 mg/dL (0.7-1.3); GFR 46.4; GLUCOSE 96 mg/dL (70-99); POTASSIUM 4.2 mmol/L (3.5-5.1); SODIUM 145 mmol/L (136-145)
[2018-01-07] MEDS: ASPIRIN ENTERIC COATED 81 MG TABLET.DR. PO (09:00)
[2018-01-07] MEDS: MULTIVITAMIN with MINERAL TABLET. PO (09:08)
[2018-01-07] MEDS: POTASSIUM CHLORIDE 20 MEQ TABLET.ER. PO (09:08)
[2018-01-07] MEDS: CHOLECALCIFEROL (VITAMIN D3) 1,000 UNIT TABLET PO (09:08)
[2018-01-07] MEDS: ALLOPURINOL 100 MG TABLET. PO (09:08)
[2018-01-07] MEDS: FUROSEMIDE 40 MG TABLET. PO (09:08)
[2018-01-07] MEDS: DULoxetine HCL 30 MG CAPSULE.DR PO (09:08)
[2018-01-07] MEDS: ISOSORBIDE MONONITRATE ER 30 MG TAB.ER.24H PO (09:09)
[2018-01-07] MEDS: LOPERAMIDE 2 MG CAPSULE PO ×2 (15:05→19:27)
[2018-01-07] MEDS: ENOXAPARIN 40 MG/0.4 ML SYRINGE. SQ (15:06)
[2018-01-07] MEDS: MORPHINE SULFATE 2 MG/ML DISP.SYRIN. IV ×2 (15:07→21:16)
[2018-01-07] MEDS: DIVALPROEX DELAYED RELEASE 500 MG TABLET.DR. PO (19:44)
[2018-01-07] MEDS: TAMSULOSIN 0.4 MG CAP.ER.24H. PO (19:44)
[2018-01-07] MEDS: ATORVASTATIN CALCIUM 10 MG TABLET. PO (19:44)
[2018-01-07] MEDS ORDERED: LACTOBACILLUS RHAMNOSUS GG 1 CAPSULE. PO (21:00)
[2018-01-08] MEDS: LOPERAMIDE 2 MG CAPSULE PO ×4 (01:47→07:40)
[2018-01-08] MEDS: PIPERACILLIN/TAZOBACTAM 4.5 GM in IV NORMAL SALINE 100ML 100 ML IV ×2 (01:52→05:58)
[2018-01-08] MEDS: MORPHINE SULFATE 2 MG/ML DISP.SYRIN. IV ×3 (01:52→05:57)
[2018-01-08 05:15] LABS: ADD MAN DIFF? NO
[2018-01-08 05:22] LABS: BASO # 0.1 x10^3/uL (0.0-0.2); BASO % 0 % (0-3); EOS # 0.1 x10^3/uL (0.0-0.7); EOS % 0 % (0-3); HEMATOCRIT 31.7 % (39.0-53.0); HEMOGLOBIN 10.6 g/dL (13.0-17.5); LYMPH # 25.2 x10^3/uL (1.0-4.8); LYMPH % 85 % (24-48); MEAN CORPUSCULAR HEMOGLOBIN 31 pg (25-35); MEAN CORPUSCULAR HGB CONC 33 g/dL (31-37); MEAN CORPUSCULAR VOLUME 92 fL (79-100); MONO # 0.7 x10^3/uL (0.0-1.1); MONO % 2 % (0-9); NEUT # 3.6 x10^3uL (1.8-7.7); NEUT % 12 % (31-73); PLATELET COUNT 237 x10^3/uL (140-400); RED BLOOD COUNT 3.43 x10^6/uL (4.30-5.70); RED CELL DISTRIBUTION WIDTH 14.6 % (11.5-14.5); WHITE BLOOD COUNT 29.7 x10^3/uL (4.0-11.0)
[2018-01-08 05:47] LABS: ANION GAP 10 (6-14); BLOOD UREA NITROGEN 16 mg/dL (8-26); CARBON DIOXIDE 27 mmol/L (21-32); CHLORIDE 108 mmol/L (98-107); CREATININE 1.4 mg/dL (0.7-1.3); GFR 50.2; GLUCOSE 84 mg/dL (70-99); POTASSIUM 3.7 mmol/L (3.5-5.1); SODIUM 145 mmol/L (136-145)
[2018-01-08] MEDS: DULoxetine HCL 30 MG CAPSULE.DR PO (07:39)
[2018-01-08] MEDS: ASPIRIN ENTERIC COATED 81 MG TABLET.DR. PO (07:39)
[2018-01-08] MEDS: POTASSIUM CHLORIDE 20 MEQ TABLET.ER. PO (07:39)
[2018-01-08] MEDS: ISOSORBIDE MONONITRATE ER 30 MG TAB.ER.24H PO (07:40)
[2018-01-08] MEDS: FUROSEMIDE 40 MG TABLET. PO (07:40)
[2018-01-08] MEDS: MULTIVITAMIN with MINERAL TABLET. PO (07:40)
[2018-01-08] MEDS: CHOLECALCIFEROL (VITAMIN D3) 1,000 UNIT TABLET PO (07:40)
[2018-01-08] MEDS: ALLOPURINOL 100 MG TABLET. PO (07:40)
[2018-01-08] MEDS ORDERED: IPRATRPIUM/ALBUTEROL 0.5/2.5MG 3 ML NEBU. NEB (12:00)
== END 2018-01-08 09:40 | disposition home health service (06) | DRG 177 ==
LOC: ER 10:46 → 6 SOUTH 13:00
PROC: 5A09357 Assistance with Respiratory Ventilation, Less than 24 Consecutive Hours, Continuous Positive Airway Pressure (ICD-10-PCS; principal; 2018-01-05)
PROC: 5A09357 Assistance with Respiratory Ventilation, Less than 24 Consecutive Hours, Continuous Positive Airway Pressure (ICD-10-PCS; 2018-01-06)
DX: J69.0 Pneumonitis due to inhalation of food and vomit (principal); J96.22 Acute and chronic respiratory failure with hypercapnia; G92 Toxic encephalopathy; C91.10 Chronic lymphocytic leukemia of B-cell type not having achieved remission; E44.1 Mild protein-calorie malnutrition; E66.01 Morbid (severe) obesity due to excess calories; G47.33 Obstructive sleep apnea (adult) (pediatric); G89.29 Other chronic pain; N18.3 Chronic kidney disease, stage 3 (moderate); Z79.891 Long term (current) use of opiate analgesic; Z82.49 Family history of ischemic heart disease and other diseases of the circulatory system; Z85.528 Personal history of other malignant neoplasm of kidney; Z87.891 Personal history of nicotine dependence; Z90.49 Acquired absence of other specified parts of digestive tract; Z90.5 Acquired absence of kidney
CPT/HCPCS: 36415; 70450; 71045; 71250; 80048; 80053; 80307; 81001; 82140; 82805; 83605; 84484; 85007; 85025; 85651; 86140; 87040; 87804; 87804-59; 93005; 94640; 96365; 96368; 97116-GP; 97162-GP; 97165-GO; 99285; 99285-25; G0480; J0690; J1650; J1956; J2270; J2543; J3370; J7030; J7040; J7613; J7620; P9612

== ENCOUNTER 2019-01-04 18:17 | Emergency (ER) | payer MEDICARE, OTHER ==
[~2019-01-04] VITALS: Ht 177.8 cm; Wt 99.8 kg
[~2019-01-04 18:17] MED LIST: ALLO100T PO; ALLO300T PO; ASPI-482 PO; CHOL100013 PO; CIPR500T94 PO; DIVA-53 PO; DULO60CA6 PO; FURO40TA4 PO; GABA300C18 PO; ISOS30TA4 PO; LISI-130 PO; MORP30TA83 PO; MULT1TAB52 PO; NALO0.4D2 IJ; POTA20TA82 PO; PRAV80TA2 PO; RISP0.5T24 PO; TAMS0.4C2 PO; TIZA4TAB PO
[2019-01-04] MEDS ORDERED: IV NORMAL SALINE 500ML BAG 500 ML IV ONE (18:45)
--- NOTE | 2019-01-04 18:52 | PHYS DOC ---
Past Medical History Past Medical History: No Pertinent History Additional Past Medical Histor: CLL; Renal cell carcinoma Past Surgical History: Appendectomy Additional Past Surgical Histo: back surgery, nephrectomy Alcohol Use: None Drug Use: None Adult General Chief Complaint Chief Complaint: WEAKNESS/GENERALIZED HPI HPI Patient is a 68 year old male who presents with groin region pain that started today. No dysuria. No fever. Describes the pain as dull and mild. Has taken no medicine for it. Patient also complains of generalized weakness. He has not eaten today and has had less than usual water/other fluids to drink due to lack of appetite. Patient has limited out of bed. He did not strike his head. He just felt too weak to walk and so EMS was contacted. Patient denies any recent changes in weight. Denies any one-sided weakness. Denies any headache. Denies any fever. No chest pain or palpitations.[] Review of Systems Review of Systems Constitutional: Denies fever or chills [] Eyes: Denies change in visual acuity, redness, or eye pain [] HENT: Denies nasal congestion or sore throat [] Respiratory: Denies cough or shortness of breath [] Cardiovascular: No additional information not addressed in HPI [] GI: Denies abdominal pain, nausea, vomiting, bloody stools or diarrhea [] : Denies dysuria or hematuria, see history of present illness [] Musculoskeletal: Denies back pain or joint pain [] Integument: Denies rash or skin lesions [] Neurologic: Denies headache, focal weakness or sensory changes [] Endocrine: Denies polyuria or polydipsia [] All other systems were reviewed and found to be within normal limits, except as documented in this note. Current Medications Current Medications Current Medications Medications (Trade) Dose Ordered Sig/Nils Start Time Stop Time Status Last Admin Dose Admin Ketorolac Tromethamine (Toradol 15mg Vial) 15 mg 1X ONCE 01/04/19 19:00 01/04/19 19:01 DC 01/04/19 19:37 15 MG Sodium Chloride 1,000 ml @ 1,000 mls/hr 1X ONCE 01/04/19 19:30 01/04/19 20:29 DC 01/04/19 19:36 1,000 MLS/HR Allergies Allergies Allergies Coded Allergies Type Severity Reaction Last Updated Verified No Known Drug Allergies 10/01/17 No Physical Exam Physical Exam Constitutional: Well developed, well nourished, no acute distress, non-toxic appearance. [] HENT: Normocephalic, atraumatic, bilateral external ears normal, oropharynx moist, no oral exudates, nose normal. [] Eyes: PERRLA, EOMI, conjunctiva normal, no discharge. [] Neck: Normal range of motion, no tenderness, supple, no stridor. [] Cardiovascular:Heart rate regular rhythm, no murmur [] Lungs & Thorax: Bilateral breath sounds clear to auscultation [] Abdomen: Bowel sounds normal, soft, no tenderness, no masses, no pulsatile masses. : Normal male, bilateral descended testes, no tenderness to palpation. Circumcised. No penile discharge. No erythema, no lesions.[] Skin: Warm, dry, no erythema, no rash. [] Back: No tenderness, no CVA tenderness. [] Extremities: No tenderness, no cyanosis, no clubbing, ROM intact, no edema. [] Neurologic: Alert and oriented X 3, normal motor function, normal sensory function, no focal deficits noted. [] Psychologic: Affect normal, judgement normal, mood normal. [] Current Patient Data Vital Signs Vital Signs Date Time Temp Pulse Resp B/P (MAP) Pulse Ox O2 Delivery O2 Flow Rate FiO2 01/04/19 19:25 84 96 01/04/19 18:20 100.5 18 176/81 (112) Room Air 100.5 Lab Values Laboratory Tests Test 01/04/19 18:40 01/04/19 19:21 White Blood Count 26.2 x10^3/uL (4.0-11.0) H Red Blood Count 4.21 x10^6/uL (4.30-5.70) L Hemoglobin 12.0 g/dL (13.0-17.5) L Hematocrit 37.1 % (39.0-53.0) L Mean Corpuscular Volume 88 fL (79-100) Mean Corpuscular Hemoglobin 29 pg (25-35) Mean Corpuscular Hemoglobin Concent 32 g/dL (31-37) Red Cell Distribution Width 15.1 % (11.5-14.5) H Platelet Count 221 x10^3/uL (140-400) Neutrophils (%) (Auto) 20 % (31-73) L Lymphocytes (%) (Auto) 75 % (24-48) H Monocytes (%) (Auto) 5 % (0-9) Eosinophils (%) (Auto) 0 % (0-3) Basophils (%) (Auto) 0 % (0-3) Neutrophils # (Auto) 5.2 x10^3uL (1.8-7.7) Lymphocytes # (Auto) 19.7 x10^3/uL (1.0-4.8) H Monocytes # (Auto) 1.2 x10^3/uL (0.0-1.1) H Eosinophils # (Auto) 0.1 x10^3/uL (0.0-0.7) Basophils # (Auto) 0.0 x10^3/uL (0.0-0.2) Segmented Neutrophils % 21 % (35-66) L Band Neutrophils % 4 % (0-9) Lymphocytes % 70 % (24-48) H Monocytes % 4 % (0-10) Eosinophils % 1 % (0-5) Smudge Cells Present Platelet Estimate Adequate (ADEQUATE) Prothrombin Time 13.8 SEC (11.7-14.0) Prothrombin Time INR 1.1 (0.8-1.1) Sodium Level 137 mmol/L (136-145) Potassium Level 4.1 mmol/L (3.5-5.1) Chloride Level 99 mmol/L (98-107) Carbon Dioxide Level 30 mmol/L (21-32) Anion Gap 8 (6-14) Blood Urea Nitrogen 27 mg/dL (8-26) H Creatinine 1.7 mg/dL (0.7-1.3) H Estimated GFR (Cockcroft-Gault) 40.0 BUN/Creatinine Ratio 16 (6-20) Glucose Level 87 mg/dL (70-99) Calcium Level 7.9 mg/dL (8.5-10.1) L Magnesium Level 1.7 mg/dL (1.8-2.4) L Total Bilirubin 0.5 mg/dL (0.2-1.0) Aspartate Amino Transferase (AST) 26 U/L (15-37) Alanine Aminotransferase (ALT) 28 U/L (16-63) Alkaline Phosphatase 65 U/L (46-116) Troponin I Quantitative < 0.017 ng/mL (0.000-0.055) QH-Plr-F-Type Natriuretic Peptide 259 pg/mL (0-124) H Total Protein 5.0 g/dL (6.4-8.2) L Albumin 2.5 g/dL (3.4-5.0) L Albumin/Globulin Ratio 1.0 (1.0-1.7) Lipase 146 U/L (73-393) Thyroid Stimulating Hormone (TSH) 3.396 uIU/mL (0.358-3.74) Urine Collection Type Unknown Urine Color Yellow Urine Clarity Clear Urine pH 6.0 Urine Specific [place] 1.020 Urine Protein >=300 mg/dL (NEG-TRACE) Urine Glucose (UA) Negative mg/dL (NEG) Urine Ketones (Stick) Negative mg/dL (NEG) Urine Blood Small (NEG) Urine Nitrite Negative (NEG) Urine Bilirubin Negative (NEG) Urine Urobilinogen Dipstick 0.2 mg/dL (0.2 mg/dL) Urine Leukocyte Esterase Negative (NEG) Urine RBC 11-20 /HPF (0-2) Urine WBC Occ /HPF (0-4) Urine Squamous Epithelial Cells Occ /LPF Urine Bacteria 0 /HPF (0-FEW) Laboratory Tests 01/04/19 18:40 Laboratory Tests 01/04/19 18:40 EKG EKG EKG shows a sinus rhythm at 82 bpm, normal axis, QTC of 426 ms, no ST elevations , interpreted by fl at 1922. When compared with EKG of 01/05/2018, no acute changes are present.[] Radiology/Procedures Radiology/Procedures Chest x-ray shows no acute features CT Abdomen and Pelvis without contrast History: Groin pain, history of renal cell carcinoma Technique: Noncontrast CT imaging was performed of the abdomen and pelvis. Multiplanar images are reviewed. Exposure: One or more of the following individualized dose reduction techniques were utilized for this examination: 1. Automated exposure control 2. Adjustment of the mA and/or kV according to patient size 3. Use of iterative reconstruction technique. Comparison: None Findings: There a few tiny grouped micronodules of the right lower lobe the lung base as seen on axial images 4-6. There has been right nephrectomy. There is no mass of the right renal fossa. There is no left hydronephrosis or renal calculus. Gallbladder is present without obvious intraluminal abnormality by CT. Evaluation of abdominal visceral organs is limited without intravenous contrast, no significant focal abnormality liver, spleen, pancreas allowing for noncontrast technique. Evaluation of bowel is limited without oral contrast. There is scattered diverticulosis of the sigmoid colon not associated with significant adjacent inflammatory-type change. There is some fluid in the colon. The bowel is not significantly dilated. No free air is identified. No bowel containing hernia is identified. There is questionable mild small bowel wall thickening such as of the central and left abdomen. There has likely been appendectomy. There is mild fat in the inguinal canals bilaterally, no internal bowel. There is more advanced degenerative disc disease L2-3, L3-4, L5-S1. There is grade 1 anterior spondylolisthesis at L5-S1, minimal posterior subluxation L4 relative to L5 and L3 relative to L4. There is multilevel fairly significant lumbar neural foramina compromise such as on the right L3-4 and L4-5 and on the left at L2-3, L3-4, and L5-S1, somewhat lesser degree of narrowing at other levels of the lumbar spine other than sparing L1-2 level. There is also degree of thoracic neural foramina compromise most notable on the right T10-11 by facet degenerative change. There is some variable lateral recess stenosis of the lumbar spine greatest on the left at L4-5 and L5-S1, also bilaterally at L3-4 at which there has been right laminectomy. There is also degree of lateral recess stenosis bilaterally at L2-3 and on the right at L1-2. There are some scattered small retroperitoneal nodes, no significantly enlarged nodes identified. There are prostate calcifications. IMPRESSION: 1. There is fluid in the colon, could be associated with diarrheal state. There is questionable mild small bowel wall thickening in the left abdomen as could be seen with enteritis. There is sigmoid diverticulosis. 2. There has been right nephrectomy, no significant mass in the right renal fossa or significant lymphadenopathy. 3. There is multilevel lumbar degenerative disc disease and facet degenerative change, multilevel lumbar neural foramina compromise and variable lateral recess stenosis. 4. There are some grouped micronodules of the right lower lobe at the lung base, pattern more suggestive of sequela of bronchiolitis[] Course & Med Decision Making Course & Med Decision Making Pertinent Labs and Imaging studies reviewed. (See chart for details) ED course: Patient arrived, was placed in bed, in tolerated exam well. Patient was able to undergo orthostatic vital signs. Patient was able to tolerate oral intake. At 2052 he is currently undergoing the scrotal ultrasound. After the ultrasound was performed, discussed findings of all labs and imaging with the patient who voiced understanding. Offered patient option for admission however he requests to go home. She was discharged in improved condition. Medical decision making: Concerned about weakness in a patient with previous nephrectomy due to renal cell cancer. Patient's white count is noted to be elevated however this is at his usual baseline consistent with his CLL. Patient' s creatinine is noted to be elevated when compared to a year ago. Patient was given IV fluids and was by mouth tolerant.[] Dragon Disclaimer Dragon Disclaimer This electronic medical record was generated, in whole or in part, using a voice recognition dictation system. Departure Departure Impression: Primary Impression: Weakness Additional Impression: Chronic renal insufficiency Disposition: HOME, SELF-CARE Condition: IMPROVED Referrals: CINDI TURNER DO (PCP) Follow-up with your regular doctor in 2 days Patient Instructions: Chronic Renal Insufficiency, Weakness Additional Instructions: Drink plenty of fluids. Follow-up with your regular doctor in 2 days. Return to the ER if worsening weakness, difficulty breathing, or any other concerns. Problem Qualifiers Additional Impression: Chronic renal insufficiency Chronic kidney disease stage: unspecified stage Qualified Codes: N18.9 - Chronic kidney disease, unspecified LOTUS TATE DO Jan 04, 2019 18:52
[2019-01-04 18:55] LABS: BASO % 0 % (0-3); EOS # 0.1 x10^3/uL (0.0-0.7); EOS % 0 % (0-3); HEMATOCRIT 37.1 % (39.0-53.0); LYMPH # 19.7 x10^3/uL (1.0-4.8); LYMPH % 75 % (24-48); MEAN CORPUSCULAR HEMOGLOBIN 29 pg (25-35); MEAN CORPUSCULAR HGB CONC 32 g/dL (31-37); MEAN CORPUSCULAR VOLUME 88 fL (79-100); MONO # 1.2 x10^3/uL (0.0-1.1); MONO % 5 % (0-9); NEUT # 5.2 x10^3uL (1.8-7.7); NEUT % 20 % (31-73); PLATELET COUNT 221 x10^3/uL (140-400); RED BLOOD COUNT 4.21 x10^6/uL (4.30-5.70); RED CELL DISTRIBUTION WIDTH 15.1 % (11.5-14.5); WHITE BLOOD COUNT 26.2 x10^3/uL (4.0-11.0)
[2019-01-04] MEDS ORDERED: KETOROLAC 15 MG/ML VIAL. IV ONE (19:00)
[2019-01-04 19:06] LABS: CALCIUM 7.9 mg/dL (8.5-10.1); CREATININE 1.7 mg/dL (0.7-1.3); POTASSIUM 4.1 mmol/L (3.5-5.1); PROTHROMBIN TIME PATIENT 13.8 SEC (11.7-14.0)
[2019-01-04 19:11] LABS: ALBUMIN 2.5 g/dL (3.4-5.0); MAGNESIUM 1.7 mg/dL (1.8-2.4); TOTAL BILIRUBIN 0.5 mg/dL (0.2-1.0)
[2019-01-04 19:22] LABS: % BANDS 4 % (0-9); % EOS 1 % (0-5); % LYMPHS 70 % (24-48); % MONOS 4 % (0-10); % SEGS 21 % (35-66); PLT ESTIMATE ADEQUATE (ADEQUATE); SMUDGE CELLS PRESENT
[2019-01-04] MEDS ORDERED: IV NORMAL SALINE 1000ML BAG 1,000 ML IV ONE (19:30)
[2019-01-04 19:46] LABS: BILIRUBIN,URINE NEGATIVE (NEG); CLARITY,URINE CLEAR; COLOR,URINE YELLOW; NITRITE,URINE NEGATIVE (NEG); PROTEIN,URINE >=300 mg/dL (NEG-TRACE); UROBILINOGEN,URINE 0.2 mg/dL (0.2 mg/dL)
[2019-01-04 19:51] LABS: BACTERIA,URINE 0 /HPF (0-FEW); SQUAMOUS EPITHELIAL CELL,UR OCC /LPF; WBC,URINE OCC /HPF (0-4)
--- NOTE | 2019-01-04 20:32 | RAD ---
CT Abdomen and Pelvis without contrast History: Groin pain, history of renal cell carcinoma Technique: Noncontrast CT imaging was performed of the abdomen and pelvis. Multiplanar images are reviewed. Exposure: One or more of the following individualized dose reduction techniques were utilized for this examination: 1. Automated exposure control 2. Adjustment of the mA and/or kV according to patient size 3. Use of iterative reconstruction technique. Comparison: None Findings: There a few tiny grouped micronodules of the right lower lobe the lung base as seen on axial images 4-6. There has been right nephrectomy. There is no mass of the right renal fossa. There is no left hydronephrosis or renal calculus. Gallbladder is present without obvious intraluminal abnormality by CT. Evaluation of abdominal visceral organs is limited without intravenous contrast, no significant focal abnormality liver, spleen, pancreas allowing for noncontrast technique. Evaluation of bowel is limited without oral contrast. There is scattered diverticulosis of the sigmoid colon not associated with significant adjacent inflammatory-type change. There is some fluid in the colon. The bowel is not significantly dilated. No free air is identified. No bowel containing hernia is identified. There is questionable mild small bowel wall thickening such as of the central and left abdomen. There has likely been appendectomy. There is mild fat in the inguinal canals bilaterally, no internal bowel. There is more advanced degenerative disc disease L2-3, L3-4, L5-S1. There is grade 1 anterior spondylolisthesis at L5-S1, minimal posterior subluxation L4 relative to L5 and L3 relative to L4. There is multilevel fairly significant lumbar neural foramina compromise such as on the right L3-4 and L4-5 and on the left at L2-3, L3-4, and L5-S1, somewhat lesser degree of narrowing at other levels of the lumbar spine other than sparing L1-2 level. There is also degree of thoracic neural foramina compromise most notable on the right T10-11 by facet degenerative change. There is some variable lateral recess stenosis of the lumbar spine greatest on the left at L4-5 and L5-S1, also bilaterally at L3-4 at which there has been right laminectomy. There is also degree of lateral recess stenosis bilaterally at L2-3 and on the right at L1-2. There are some scattered small retroperitoneal nodes, no significantly enlarged nodes identified. There are prostate calcifications. IMPRESSION: 1. There is fluid in the colon, could be associated with diarrheal state. There is questionable mild small bowel wall thickening in the left abdomen as could be seen with enteritis. There is sigmoid diverticulosis. 2. There has been right nephrectomy, no significant mass in the right renal fossa or significant lymphadenopathy. 3. There is multilevel lumbar degenerative disc disease and facet degenerative change, multilevel lumbar neural foramina compromise and variable lateral recess stenosis. 4. There are some grouped micronodules of the right lower lobe at the lung base, pattern more suggestive of sequela of bronchiolitis Electronically signed by: Elton Montiel MD (01/04/2019 8:28 PM) [employer]
[2019-01-04 21:02] VITALS: BP 185/90
--- NOTE | 2019-01-04 21:17 | RAD ---
Testicular/groin ultrasound History: Groin region discomfort Comparison: None. Findings: Multiple grayscale, color, duplex analysis waveform images of the testicles and scrotum are submitted. Right testicle measured 2.4 x 2.8 x 3.7 cm. There is small right epididymal head cyst about 0.3-0.4 cm. There is small right hydrocele. The left testicle measured 2.5 x 2.8 x 2.3 cm. There is moderate left hydrocele, some internal debris. There is left epididymal cyst about 0.4 cm. No asymmetric hypervascularity is identified. There is normal color flow and low resistance vascularity of interrogated intratesticular vessels bilaterally. No intratesticular mass is demonstrated. Impression: 1. There are left greater than right hydroceles, some internal debris on the left. There are small epididymal cysts. No other significant abnormality is demonstrated. Electronically signed by: Elton Montiel MD (01/04/2019 9:12 PM) [facility]
--- NOTE | 2019-01-05 01:29 | RAD ---
PORTABLE CHEST 1V History: Weakness, shortness of air for one day Comparison: 01/05/2018 Findings: AP portable view of the chest is submitted. Pericardial cardiac silhouette is again enlarged, limited evaluation of the left lung base. Left base infiltrate and left pleural effusion cannot be excluded. There is no pneumothorax or right infiltrate. There is atherosclerotic calcification aortic arch. Impression: 1. Left base infiltrate and pleural fluid cannot be excluded due to the enlarged pericardial cardiac silhouette. There is no right infiltrate or pleural fluid. Electronically signed by: Elton Montiel MD (01/04/2019 11:32 PM) [facility]
--- NOTE | 2019-01-05 12:52 | EKG ---
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
== END 2019-01-04 21:15 | disposition home or self-care (01) ==
LOC: ER 18:17
DX: R10.30 Lower abdominal pain, unspecified (principal); R53.1 Weakness; N18.9 Chronic kidney disease, unspecified; Z90.89 Acquired absence of other organs; Z90.5 Acquired absence of kidney
CPT/HCPCS: 36415; 71045; 74176; 76870; 80053; 81001; 83690; 83735; 83880; 84443; 84484; 85007; 85025; 85610; 93005; 96374; J1885; J7030; 99284-25

== ENCOUNTER 2019-01-05 03:19 | Inpatient (IN) | payer MEDICARE ==
[~2019-01-05] VITALS: Ht 175.3 cm; Wt 116.6 kg
[~2019-01-05 03:19] MED LIST changes: -TIZA4TAB PO; +TIZA4TAB2 PO
[2019-01-05] MEDS ORDERED: cefTRIAXone IV Push 1 GM VIAL. IVP ONE (04:00)
[2019-01-05 04:12] LABS: ACETAMIN < 2 mcg/ml (10-30); ETHANOL < 10 mg/dL (0-10); SALIC < 2.8 mg/dL (2.8-20.0)
[2019-01-05] MEDS ORDERED: LISINOPRIL 10 MG TABLET PO ONE (04:15)
[2019-01-05 04:36] LABS: BILIRUBIN,URINE NEGATIVE (NEG); CLARITY,URINE CLEAR; COLOR,URINE YELLOW; NITRITE,URINE NEGATIVE (NEG); PROTEIN,URINE >=300 mg/dL (NEG-TRACE)
[2019-01-05 04:43] LABS: AMPHETAMINE/METHAMPHETAMINE NEG (NEG); BARBITURATES NEG (NEG); BENZODIAZEPINES NEG (NEG); CANNABINOIDS NEG (NEG); COCAINE NEG (NEG); METHADONE NEG (NEG); OPIATES NEG (NEG); PHENCYCLIDINE NEG (NEG)
[2019-01-05] MEDS ORDERED: ACETAMINOPHEN 325 MG TABLET. PO PRN (04:45)
--- NOTE | 2019-01-05 04:58 | PHYS DOC ---
Past Medical History Past Medical History: Cancer, Hypothyroid, Other Additional Past Medical Histor: CLL; Renal cell carcinoma Past Surgical History: Appendectomy Additional Past Surgical Histo: back surgery,R nephrectomy Alcohol Use: None Drug Use: None Adult General Chief Complaint Chief Complaint: WEAKNESS/GENERALIZED HPI HPI Patient is a 68 year old male who presents with possible ingestion of too much medicine. EMS was called due to this and patient denied taking any extra medicine. Patient was seen by me earlier today for groin region pain and weakness and was found to have no significant issue at that time. Offered patient at that time the option of admission due to his weakness and he deferred. Of additional note patient's about this time a year ago possibly from a drug overdose. History is sketchy between patient as well as family that presented later. Patient is not denying any suicidal or homicidal ideation. [] Review of Systems Review of Systems Constitutional: Denies fever or chills [] Eyes: Denies change in visual acuity, redness, or eye pain [] HENT: Denies nasal congestion or sore throat [] Respiratory: Denies cough or shortness of breath [] Cardiovascular: No chest pain or palpitations[] GI: Denies abdominal pain, nausea, vomiting, bloody stools or diarrhea [] : Denies dysuria or hematuria [] Musculoskeletal: Denies back pain or joint pain [] Integument: Denies rash or skin lesions [] Neurologic: Denies headache, focal weakness or sensory changes [] Endocrine: Denies polyuria or polydipsia [] All other systems were reviewed and found to be within normal limits, except as documented in this note. Allergies Allergies Allergies Coded Allergies Type Severity Reaction Last Updated Verified No Known Drug Allergies 10/01/17 No Physical Exam Physical Exam Constitutional: Well developed, well nourished, no acute distress, non-toxic appearance. [] HENT: Normocephalic, atraumatic, bilateral external ears normal, oropharynx moist, no oral exudates, nose normal. [] Eyes: PERRLA, EOMI, conjunctiva normal, no discharge. [] Neck: Normal range of motion, no tenderness, supple, no stridor. [] Cardiovascular:Heart rate regular rhythm, no murmur [] Lungs & Thorax: Bilateral breath sounds clear to auscultation [] Abdomen: Bowel sounds normal, soft, no tenderness, no masses, no pulsatile masses. [] Skin: Warm, dry, no erythema, no rash. [] Back: No tenderness, no CVA tenderness. [] Extremities: No tenderness, no cyanosis, no clubbing, ROM intact, no edema. [] Neurologic: Alert and oriented X 3, normal motor function, normal sensory function, no focal deficits noted. [] Psychologic: Affect flat, judgement poor, mood depressed. [] Current Patient Data Vital Signs Vital Signs Date Time Temp Pulse Resp B/P (MAP) Pulse Ox O2 Delivery O2 Flow Rate FiO2 01/05/19 03:29 101.3 107 18 210/93 (132) 93 Room Air 101.3 Lab Values Laboratory Tests Test 01/05/19 02:57 Salicylates Level < 2.8 mg/dL (2.8-20.0) L Salicylate Last Dose Date Unk Salicylate Last Dose Time Unk Acetaminophen Level < 2 mcg/ml (10-30) L Acetaminophen Last Dose Date Unk Acetaminophen Last Dose Time Unk Ethyl Alcohol Level < 10 mg/dL (0-10) EKG EKG EKG shows a sinus tachycardia with leftward axis, 107 bpm, axis of -4�, QTC 430 ms. This was interpreted by me at 0 357. When compared with his EKG of 2018 at 1915, he was noted to be in normal sinus rhythm at that point at 82 bpm. [] Radiology/Procedures Radiology/Procedures [] Course & Med Decision Making Course & Med Decision Making Pertinent Labs and Imaging studies reviewed. (See chart for details) ED course and medical decision making: Given patient's weakness and now running a fever, patient was started on empiric antibiotic therapy. Given his statements of self-harm patient is being admitted for further evaluation. Station is being made with the PAT team.[] Dragon Disclaimer Dragon Disclaimer This electronic medical record was generated, in whole or in part, using a voice recognition dictation system. Departure Departure Impression: Primary Impression: Febrile illness Additional Impressions: Overdose CLL (chronic lymphocytic leukemia) Disposition: 01 HOME, SELF-CARE Admitting Physician: Isabella Jean Condition: GUARDED Referrals: CINDI TURNER DO (PCP) Problem Qualifiers Additional Impressions: Overdose Encounter type: initial encounter Injury intent: undetermined intent Qualified Codes: T50.904A - Poisoning by unspecified drugs, medicaments and biological substances, undetermined, initial encounter LOTUS TATE DO Jan 05, 2019 04:58
[2019-01-05] MEDS ORDERED: ONDANSETRON PF 4 MG/2 ML VIAL. IV PRN ×2 (05:00→09:45)
[2019-01-05] MEDS ORDERED: IV NORMAL SALINE 1000ML BAG 1,000 ML IV SCH (05:00)
[2019-01-05 05:08] LABS: BACTERIA,URINE 0 /HPF (0-FEW); RBC,URINE 20-40 /HPF (0-2); SQUAMOUS EPITHELIAL CELL,UR OCC /LPF
[2019-01-05 06:00] VITALS: BP 154/90
[2019-01-05 07:49] VITALS: BP 163/81
[2019-01-05] MEDS ORDERED: diphenhydrAMINE HCL 25 MG CAPSULE PO PRN (09:45)
[2019-01-05 09:58] LABS: BASO # 0.1 x10^3/uL (0.0-0.2); BASO % 0 % (0-3); EOS % 0 % (0-3); HEMATOCRIT 34.9 % (39.0-53.0); HEMOGLOBIN 11.4 g/dL (13.0-17.5); LYMPH # 17.8 x10^3/uL (1.0-4.8); LYMPH % 70 % (24-48); MEAN CORPUSCULAR HEMOGLOBIN 29 pg (25-35); MEAN CORPUSCULAR HGB CONC 33 g/dL (31-37); MEAN CORPUSCULAR VOLUME 88 fL (79-100); MONO % 4 % (0-9); NEUT # 6.7 x10^3uL (1.8-7.7); NEUT % 26 % (31-73); PLATELET COUNT 185 x10^3/uL (140-400); RED BLOOD COUNT 3.96 x10^6/uL (4.30-5.70); RED CELL DISTRIBUTION WIDTH 15.4 % (11.5-14.5); WHITE BLOOD COUNT 25.6 x10^3/uL (4.0-11.0)
[2019-01-05 10:34] VITALS: BP 188/78
--- NOTE | 2019-01-05 12:56 | EKG ---
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
--- NOTE | 2019-01-05 14:13 | PDOC1 ---
History and Physical Date of Admission Date of Admission DATE: 01/05/19 TIME: 14:12 Identification/Chief Complaint Chief Complaint Fevers? Possible depression/grievance secondary to loss of the Source Source: Caregiver, Chart review, Patient History of Present Illness History of Present Illness Patient is a 68 year old male who presents with possible ingestion of too much medicine. EMS was called due to this and patient denied taking any extra medicine. Patient was seen by me earlier today for groin region pain and weakness and was found to have no significant issue at that time. Offered patient at that time the option of admission due to his weakness and he deferred. Of additional note patient's about this time a year ago possibly from a drug overdose. History is sketchy between patient as well as family that presented later. Patient is not denying any suicidal or homicidal ideation. [] - as per ER MD acct Pt has no complaints to me except when I was about to discharge, claims having diarrhea but so far we have no stool specimen. I did look at the potty and there is no diarrhea His a year ago, he he does not have a flat affect based on my interaction with him He was seen by [facility] [place] and okayed for discharge with follow-up outpatient psych I am ok to dc today with OTC imodium prn Otherwise, no new meds UA and UDS and labs are otherwise unimpressive Past Medical History Cardiovascular: No pertinent hx Pulmonary: No pertinent hx, Bronchitis Heme/Onc: Cancer ENT: No pertinent hx Renal/: No pertinent hx Endocrine: No pertinent hx Dermatology: No pertinent hx Past Surgical History Past Surgical History: Other, No pertinent history Family History Family History: Hypertension Social History Smoke: No ALCOHOL: none Drugs: None Current Medications Current Medications Current Medications Ceftriaxone Sodium (Rocephin) 1 gm 1X ONCE IVP Last administered on 01/05/19at 04:00; Start 01/05/19 at 04:00; Stop 01/05/19 at 04:01; Status DC Lisinopril (Prinivil) 40 mg 1X ONCE PO Last administered on 01/05/19at 04:15; Start 01/05/19 at 04:15; Stop 01/05/19 at 04:16; Status DC Acetaminophen (Tylenol) 650 mg PRN Q6HRS PRN PO FEVER > 101 Last administered on 01/05/19at 05:00; Start 01/05/19 at 04:45 Ondansetron HCl (Zofran) 4 mg PRN Q8HRS PRN IV NAUSEA/VOMITING; Start 01/05/19 at 05:00; Stop 01/05/19 at 09:32; Status DC Sodium Chloride 1,000 ml @ 125 mls/hr Q8H IV Last administered on 01/05/19at 06 :31; Start 01/05/19 at 05:00; Stop 01/06/19 at 04:59 Ondansetron HCl (Zofran) 4 mg PRN Q6HRS PRN IV NAUSEA/VOMITING; Start 01/05/19 at 09:45 Levofloxacin (Levaquin) 500 mg DAILY06 PO Last administered on 01/05/19at 10:43 ; Start 01/05/19 at 10:00 Diphenhydramine HCl (Benadryl) 25 mg PRN QHS PRN PO INSOMNIA; Start 01/05/19 at 09:45 Active Scripts Active Reported Naloxone Hcl 0.4 Mg/1 Ml Disp.syrin 0.4 Mg IJ Lisinopril 40 Mg Tablet 40 Tab PO DAILY Vitamin D (Cholecalciferol (Vitamin D3)) 1,000 Unit Capsule 1 Cap PO DAILY Allopurinol 100 Mg Tablet 1 Tab PO DAILY Aspir 81 (Aspirin) 81 Mg Tablet.dr 1 Tab PO DAILY Tamsulosin Hcl 0.4 Mg Cap.er.24h 1 Cap PO QHS Furosemide 40 Mg Tablet 1 Tab PO DAILY Multivitamins (Multivitamin) 1 Each Tablet 1 Tab PO DAILY Divalproex Sodium 500 Mg Tablet.dr 1 Tab PO QHS Potassium Chloride 20 Meq Tablet.er 40 Meq PO DAILY Risperdal (Risperidone) 0.5 Mg Tablet 1 Tab PO BID Gabapentin (Gabapentin) 300 Mg Capsule 900 Mg PO TID Ms Contin (Morphine Sulfate) 30 Mg Tablet.er 1 Tab PO BID Cymbalta (Duloxetine Hcl) 60 Mg Capsule.dr 1 Cap PO HS Pravastatin Sodium 80 Mg Tablet 0.5 Tab PO QHS Isosorbide Mononitrate Er (Isosorbide Mononitrate) 30 Mg Tab.er.24h 1 Tab PO DAILY Allergies Allergies: Coded Allergies: No Known Drug Allergies (Unverified , 10/01/17) ROS Review of System Diarrhea, the rest of ROS 14 point negative Physical Exam General: Alert, Oriented X3, Cooperative, No acute distress HEENT: PERRLA Lungs: Clear to auscultation, Normal air movement Heart: S1S2, RRR, no thrills, no rubs, no gallops, no murmurs Cardiovascular: S1, S2 Breasts: Normal, Rt breast nml w/o mass, Lt breast nml w/o mass, Nipples normal Abdomen: Normal bowel sounds, Soft, No tenderness, No hepatosplenomegaly, No masses Male Genitals Exam: normal genitalia, normal prostate PELVIC: Nml ext genitalia Extremities: No clubbing, No cyanosis, No edema, Normal pulses, No tenderness/ swelling Skin: No rashes, No breakdown, No significant lesion Neuro: Normal gait, Normal speech, Strength at 5/5 X4 ext, Normal tone, Sensation intact, Cranial nerves 3-12 NL, Reflexes 2+ Psych/Mental Status: Mental status NL, Mood NL Vitals Vitals Vital Signs Date Time Temp Pulse Resp B/P (MAP) Pulse Ox O2 Delivery O2 Flow Rate FiO2 01/05/19 10:34 98.3 101 20 188/78 (114) 92 Nasal Cannula 2.0 98.3 Labs Labs Laboratory Tests Test 01/05/19 02:57 01/05/19 03:51 01/05/19 04:20 01/05/19 07:30 Salicylates Level < 2.8 mg/dL (2.8-20.0) Salicylate Last Dose Date Unk Salicylate Last Dose Time Unk Acetaminophen Level < 2 mcg/ml (10-30) Acetaminophen Last Dose Date Unk Acetaminophen Last Dose Time Unk Ethyl Alcohol Level < 10 mg/dL (0-10) Lactic Acid Level 1.2 mmol/L (0.4-2.0) 0.8 mmol/L (0.4-2.0) Urine Collection Type Unknown Urine Color Yellow Urine Clarity Clear Urine pH 7.0 Urine Specific [place] 1.020 Urine Protein >=300 mg/dL (NEG-TRACE) Urine Glucose (UA) Negative mg/dL (NEG) Urine Ketones (Stick) Negative mg/dL (NEG) Urine Blood Moderate (NEG) Urine Nitrite Negative (NEG) Urine Bilirubin Negative (NEG) Urine Urobilinogen Dipstick 1.0 mg/dL (0.2 mg/dL) Urine Leukocyte Esterase Negative (NEG) Urine RBC 20-40 /HPF (0-2) Urine WBC 1-4 /HPF (0-4) Urine Squamous Epithelial Cells Occ /LPF Urine Bacteria 0 /HPF (0-FEW) Urine Mucus Slight /LPF Urine Opiates Screen Neg (NEG) Urine Methadone Screen Neg (NEG) Urine Barbiturates Neg (NEG) Urine Phencyclidine Screen Neg (NEG) Urine Amphetamine/Methamphetamine Neg (NEG) Urine Benzodiazepines Screen Neg (NEG) Urine Cocaine Screen Neg (NEG) Urine Cannabinoids Screen Neg (NEG) Urine Ethyl Alcohol Neg (NEG) White Blood Count 25.6 x10^3/uL (4.0-11.0) Red Blood Count 3.96 x10^6/uL (4.30-5.70) Hemoglobin 11.4 g/dL (13.0-17.5) Hematocrit 34.9 % (39.0-53.0) Mean Corpuscular Volume 88 fL (79-100) Mean Corpuscular Hemoglobin 29 pg (25-35) Mean Corpuscular Hemoglobin Concent 33 g/dL (31-37) Red Cell Distribution Width 15.4 % (11.5-14.5) Platelet Count 185 x10^3/uL (140-400) Neutrophils (%) (Auto) 26 % (31-73) Lymphocytes (%) (Auto) 70 % (24-48) Monocytes (%) (Auto) 4 % (0-9) Eosinophils (%) (Auto) 0 % (0-3) Basophils (%) (Auto) 0 % (0-3) Neutrophils # (Auto) 6.7 x10^3uL (1.8-7.7) Lymphocytes # (Auto) 17.8 x10^3/uL (1.0-4.8) Monocytes # (Auto) 1.0 x10^3/uL (0.0-1.1) Eosinophils # (Auto) 0.0 x10^3/uL (0.0-0.7) Basophils # (Auto) 0.1 x10^3/uL (0.0-0.2) Erythrocyte Sedimentation Rate 25 (0-15) Troponin I Quantitative 0.041 ng/mL (0.000-0.055) Test 01/05/19 11:05 Troponin I Quantitative 0.042 ng/mL (0.000-0.055) Laboratory Tests Test 01/05/19 02:57 01/05/19 03:51 01/05/19 04:20 01/05/19 07:30 Salicylates Level < 2.8 mg/dL (2.8-20.0) Salicylate Last Dose Date Unk Salicylate Last Dose Time Unk Acetaminophen Level < 2 mcg/ml (10-30) Acetaminophen Last Dose Date Unk Acetaminophen Last Dose Time Unk Ethyl Alcohol Level < 10 mg/dL (0-10) Lactic Acid Level 1.2 mmol/L (0.4-2.0) 0.8 mmol/L (0.4-2.0) Urine Collection Type Unknown Urine Color Yellow Urine Clarity Clear Urine pH 7.0 Urine Specific [place] 1.020 Urine Protein >=300 mg/dL (NEG-TRACE) Urine Glucose (UA) Negative mg/dL (NEG) Urine Ketones (Stick) Negative mg/dL (NEG) Urine Blood Moderate (NEG) Urine Nitrite Negative (NEG) Urine Bilirubin Negative (NEG) Urine Urobilinogen Dipstick 1.0 mg/dL (0.2 mg/dL) Urine Leukocyte Esterase Negative (NEG) Urine RBC 20-40 /HPF (0-2) Urine WBC 1-4 /HPF (0-4) Urine Squamous Epithelial Cells Occ /LPF Urine Bacteria 0 /HPF (0-FEW) Urine Mucus Slight /LPF Urine Opiates Screen Neg (NEG) Urine Methadone Screen Neg (NEG) Urine Barbiturates Neg (NEG) Urine Phencyclidine Screen Neg (NEG) Urine Amphetamine/Methamphetamine Neg (NEG) Urine Benzodiazepines Screen Neg (NEG) Urine Cocaine Screen Neg (NEG) Urine Cannabinoids Screen Neg (NEG) Urine Ethyl Alcohol Neg (NEG) White Blood Count 25.6 x10^3/uL (4.0-11.0) Red Blood Count 3.96 x10^6/uL (4.30-5.70) Hemoglobin 11.4 g/dL (13.0-17.5) Hematocrit 34.9 % (39.0-53.0) Mean Corpuscular Volume 88 fL (79-100) Mean Corpuscular Hemoglobin 29 pg (25-35) Mean Corpuscular Hemoglobin Concent 33 g/dL (31-37) Red Cell Distribution Width 15.4 % (11.5-14.5) Platelet Count 185 x10^3/uL (140-400) Neutrophils (%) (Auto) 26 % (31-73) Lymphocytes (%) (Auto) 70 % (24-48) Monocytes (%) (Auto) 4 % (0-9) Eosinophils (%) (Auto) 0 % (0-3) Basophils (%) (Auto) 0 % (0-3) Neutrophils # (Auto) 6.7 x10^3uL (1.8-7.7) Lymphocytes # (Auto) 17.8 x10^3/uL (1.0-4.8) Monocytes # (Auto) 1.0 x10^3/uL (0.0-1.1) Eosinophils # (Auto) 0.0 x10^3/uL (0.0-0.7) Basophils # (Auto) 0.1 x10^3/uL (0.0-0.2) Erythrocyte Sedimentation Rate 25 (0-15) Troponin I Quantitative 0.041 ng/mL (0.000-0.055) Test 01/05/19 11:05 Troponin I Quantitative 0.042 ng/mL (0.000-0.055) VTE Prophylaxis Ordered VTE Prophylaxis Devices: Yes VTE Pharmacological Prophylaxi: Yes Assessment/Plan Assessment/Plan Normal grief Fevers resolved with negative UA Negative UDS Obesity Plan home today GRIS WHITAKER MD Jan 05, 2019 14:13
--- NOTE | 2019-01-05 14:17 | PDOC3 ---
Discharge Summary Visit Information Date of Admission: Jan 04, 2019 Date of Discharge: Jan 05, 2019 Admitting Diagnosis Comment: Normal grief Fevers resolved with negative UA Negative UDS Obesity Plan home today Brief Hospital Course Allergies Allergies Coded Allergies Type Severity Reaction Last Updated Verified No Known Drug Allergies 10/01/17 No Vital Signs Vital Signs Date Time Temp Pulse Resp B/P (MAP) Pulse Ox O2 Delivery O2 Flow Rate FiO2 01/05/19 10:34 98.3 101 20 188/78 (114) 92 Nasal Cannula 2.0 98.3 Lab Results Laboratory Tests Test 01/05/19 02:57 01/05/19 03:51 01/05/19 04:20 01/05/19 07:30 Salicylates Level < 2.8 mg/dL (2.8-20.0) Salicylate Last Dose Date Unk Salicylate Last Dose Time Unk Acetaminophen Level < 2 mcg/ml (10-30) Acetaminophen Last Dose Date Unk Acetaminophen Last Dose Time Unk Ethyl Alcohol Level < 10 mg/dL (0-10) Lactic Acid Level 1.2 mmol/L (0.4-2.0) 0.8 mmol/L (0.4-2.0) Urine Collection Type Unknown Urine Color Yellow Urine Clarity Clear Urine pH 7.0 Urine Specific [place] 1.020 Urine Protein >=300 mg/dL (NEG-TRACE) Urine Glucose (UA) Negative mg/dL (NEG) Urine Ketones (Stick) Negative mg/dL (NEG) Urine Blood Moderate (NEG) Urine Nitrite Negative (NEG) Urine Bilirubin Negative (NEG) Urine Urobilinogen Dipstick 1.0 mg/dL (0.2 mg/dL) Urine Leukocyte Esterase Negative (NEG) Urine RBC 20-40 /HPF (0-2) Urine WBC 1-4 /HPF (0-4) Urine Squamous Epithelial Cells Occ /LPF Urine Bacteria 0 /HPF (0-FEW) Urine Mucus Slight /LPF Urine Opiates Screen Neg (NEG) Urine Methadone Screen Neg (NEG) Urine Barbiturates Neg (NEG) Urine Phencyclidine Screen Neg (NEG) Urine Amphetamine/Methamphetamine Neg (NEG) Urine Benzodiazepines Screen Neg (NEG) Urine Cocaine Screen Neg (NEG) Urine Cannabinoids Screen Neg (NEG) Urine Ethyl Alcohol Neg (NEG) White Blood Count 25.6 x10^3/uL (4.0-11.0) Red Blood Count 3.96 x10^6/uL (4.30-5.70) Hemoglobin 11.4 g/dL (13.0-17.5) Hematocrit 34.9 % (39.0-53.0) Mean Corpuscular Volume 88 fL (79-100) Mean Corpuscular Hemoglobin 29 pg (25-35) Mean Corpuscular Hemoglobin Concent 33 g/dL (31-37) Red Cell Distribution Width 15.4 % (11.5-14.5) Platelet Count 185 x10^3/uL (140-400) Neutrophils (%) (Auto) 26 % (31-73) Lymphocytes (%) (Auto) 70 % (24-48) Monocytes (%) (Auto) 4 % (0-9) Eosinophils (%) (Auto) 0 % (0-3) Basophils (%) (Auto) 0 % (0-3) Neutrophils # (Auto) 6.7 x10^3uL (1.8-7.7) Lymphocytes # (Auto) 17.8 x10^3/uL (1.0-4.8) Monocytes # (Auto) 1.0 x10^3/uL (0.0-1.1) Eosinophils # (Auto) 0.0 x10^3/uL (0.0-0.7) Basophils # (Auto) 0.1 x10^3/uL (0.0-0.2) Erythrocyte Sedimentation Rate 25 (0-15) Troponin I Quantitative 0.041 ng/mL (0.000-0.055) Test 01/05/19 11:05 Troponin I Quantitative 0.042 ng/mL (0.000-0.055) Laboratory Tests Test 01/05/19 02:57 01/05/19 03:51 01/05/19 04:20 01/05/19 07:30 Salicylates Level < 2.8 mg/dL (2.8-20.0) Salicylate Last Dose Date Unk Salicylate Last Dose Time Unk Acetaminophen Level < 2 mcg/ml (10-30) Acetaminophen Last Dose Date Unk Acetaminophen Last Dose Time Unk Ethyl Alcohol Level < 10 mg/dL (0-10) Lactic Acid Level 1.2 mmol/L (0.4-2.0) 0.8 mmol/L (0.4-2.0) Urine Collection Type Unknown Urine Color Yellow Urine Clarity Clear Urine pH 7.0 Urine Specific [place] 1.020 Urine Protein >=300 mg/dL (NEG-TRACE) Urine Glucose (UA) Negative mg/dL (NEG) Urine Ketones (Stick) Negative mg/dL (NEG) Urine Blood Moderate (NEG) Urine Nitrite Negative (NEG) Urine Bilirubin Negative (NEG) Urine Urobilinogen Dipstick 1.0 mg/dL (0.2 mg/dL) Urine Leukocyte Esterase Negative (NEG) Urine RBC 20-40 /HPF (0-2) Urine WBC 1-4 /HPF (0-4) Urine Squamous Epithelial Cells Occ /LPF Urine Bacteria 0 /HPF (0-FEW) Urine Mucus Slight /LPF Urine Opiates Screen Neg (NEG) Urine Methadone Screen Neg (NEG) Urine Barbiturates Neg (NEG) Urine Phencyclidine Screen Neg (NEG) Urine Amphetamine/Methamphetamine Neg (NEG) Urine Benzodiazepines Screen Neg (NEG) Urine Cocaine Screen Neg (NEG) Urine Cannabinoids Screen Neg (NEG) Urine Ethyl Alcohol Neg (NEG) White Blood Count 25.6 x10^3/uL (4.0-11.0) Red Blood Count 3.96 x10^6/uL (4.30-5.70) Hemoglobin 11.4 g/dL (13.0-17.5) Hematocrit 34.9 % (39.0-53.0) Mean Corpuscular Volume 88 fL (79-100) Mean Corpuscular Hemoglobin 29 pg (25-35) Mean Corpuscular Hemoglobin Concent 33 g/dL (31-37) Red Cell Distribution Width 15.4 % (11.5-14.5) Platelet Count 185 x10^3/uL (140-400) Neutrophils (%) (Auto) 26 % (31-73) Lymphocytes (%) (Auto) 70 % (24-48) Monocytes (%) (Auto) 4 % (0-9) Eosinophils (%) (Auto) 0 % (0-3) Basophils (%) (Auto) 0 % (0-3) Neutrophils # (Auto) 6.7 x10^3uL (1.8-7.7) Lymphocytes # (Auto) 17.8 x10^3/uL (1.0-4.8) Monocytes # (Auto) 1.0 x10^3/uL (0.0-1.1) Eosinophils # (Auto) 0.0 x10^3/uL (0.0-0.7) Basophils # (Auto) 0.1 x10^3/uL (0.0-0.2) Erythrocyte Sedimentation Rate 25 (0-15) Troponin I Quantitative 0.041 ng/mL (0.000-0.055) Test 01/05/19 11:05 Troponin I Quantitative 0.042 ng/mL (0.000-0.055) Brief Hospital Course Mr. Stewart is a 68 old [sex] who presented with [ ] Patient is a 68 year old male who presents with possible ingestion of too much medicine. EMS was called due to this and patient denied taking any extra medicine. Patient was seen by me earlier today for groin region pain and weakness and was found to have no significant issue at that time. Offered patient at that time the option of admission due to his weakness and he deferred. Of additional note patient's about this time a year ago possibly from a drug overdose. History is sketchy between patient as well as family that presented later. Patient is not denying any suicidal or homicidal ideation. [] - as per ER MD acct Pt has no complaints to me except when I was about to discharge, claims having diarrhea but so far we have no stool specimen. I did look at the potty and there is no diarrhea His a year ago, he he does not have a flat affect based on my interaction with him He was seen by [facility] and okayed for discharge with follow-up outpatient psych I am ok to dc today with OTC imodium prn Otherwise, no new meds UA and UDS and labs are otherwise unimpressive Discharge Information Condition at Discharge: Improved, Stable Disposition/Orders: D/C to Home Scheduled Allopurinol (Allopurinol) 100 Mg Tablet, 1 TAB PO DAILY, #30 Ref 5 (Reported) Entered as Reported by: ERICKSON STONE on 01/05/18 1303 Last Action: Continued on 01/05/19 1417 by GRIS WHITAKER Aspirin (Aspir 81) 81 Mg Tablet., 1 TAB PO DAILY, #30 Ref 5 (Reported) Entered as Reported by: NACHO LOPEZ on 10/02/17 1522 Last Action: Continued on 01/05/191416 by GRIS WHITAKER Cholecalciferol (Vitamin D3) (Vitamin D) 1,000 Unit Capsule, 1 CAP PO DAILY, # 30 Ref 3 (Reported) Entered as Reported by: ERICKSON STONE on 01/05/18 1303 Last Action: Converted on 01/05/191416 by GRIS WHITAKER Divalproex Sodium (Divalproex Sodium) 500 Mg Tablet.dr, 1 TAB PO QHS, #60 Ref 1 (Reported) Entered as Reported by: NACHO LOPEZ on 10/02/171521 Last Action: Converted on 01/05/191416 by GRIS WHITAKER Duloxetine Hcl (Cymbalta) 60 Mg Capsule.dr, 1 CAP PO HS, #90 Ref 3 (Reported) Entered as Reported by: NACHO LOPEZ on 10/02/171419 Last Action: Converted on 01/05/191416 by GRIS WHITAKER Furosemide (Furosemide) 40 Mg Tablet, 1 TAB PO DAILY, #30 Ref 5 (Reported) Entered as Reported by: NACHO LOPEZ on 10/02/171521 Last Action: Continued on 01/05/191416 by GRIS WHITAKER Gabapentin (Gabapentin ) 300 Mg Capsule, 900 MG PO TID, (Reported) Entered as Reported by: NACHO LOPEZ on 10/02/171521 Last Action: Continued on 01/05/191416 by GRIS WHITAKER Isosorbide Mononitrate (Isosorbide Mononitrate Er) 30 Mg Tab.er.24h, 1 TAB PO DAILY, #30 Ref 5 (Reported) Entered as Reported by: NACHO LOPEZ on 10/02/171419 Last Action: Continued on 01/05/191416 by GRIS WHITAKER Lisinopril (Lisinopril) 40 Mg Tablet, 40 TAB PO DAILY, #30 Ref 5 (Reported) Entered as Reported by: ERICKSON STONE on 01/05/18 1303 Last Action: Continued on 01/05/191416 by GRIS WHITAKER Morphine Sulfate Er (Ms Contin) 30 Mg Tablet.er, 1 TAB PO BID, #60 (Reported) Entered as Reported by: NACHO LOPEZ on 10/02/171521 Last Action: Continued on 01/05/191416 by GRIS WHITAKER Multivitamin (Multivitamins) 1 Each Tablet, 1 TAB PO DAILY, #90 Ref 3 (Reported) Entered as Reported by: NACHO LOPEZ on 10/02/171521 Last Action: Converted on 01/05/191416 by GRIS WHITAKER Potassium Chloride (Potassium Chloride) 20 Meq Tablet.er, 40 MEQ PO DAILY, ( Reported) Entered as Reported by: NACHO LOPEZ on 10/02/171521 Last Action: Converted on 01/05/191416 by GRIS WHITAKER Pravastatin Sodium (Pravastatin Sodium) 80 Mg Tablet, 0.5 TAB PO QHS, #90 Ref 1 (Reported) Entered as Reported by: NACHO LOPEZ on 10/02/171419 Last Action: Converted on 01/05/191416 by GRIS WHITAKER Risperidone (Risperdal) 0.5 Mg Tablet, 1 TAB PO BID, #60 (Reported) Entered as Reported by: NACHO LOPEZ on 10/02/171521 Last Action: Converted on 01/05/191416 by GRIS WHITAKER Tamsulosin Hcl (Tamsulosin Hcl) 0.4 Mg Cap.er.24h, 1 CAP PO QHS, #30 Ref 5 ( Reported) Entered as Reported by: NACHO LOPEZ on 10/02/171521 Last Action: Continued on 01/05/191416 by GRIS WHITAKER Miscellaneous Medications Naloxone Hcl (Naloxone Hcl) 0.4 Mg/1 Ml Disp.syrin, 0.4 MG IJ, (Reported) Entered as Reported by: ERICKSON STONE on 01/05/18 1303 GRIS WHITAKER MD Jan 05, 2019 14:17
--- NOTE | 2019-01-05 14:19 | PDOC ---
Provider Note Provider Note Cancel DC-staff able to verify patient still having diarrhea and stool were sent to the lab this morning GRIS WHITAKER MD Jan 05, 2019 14:19
[2019-01-05] MEDS ORDERED: LISINOPRIL 20 MG TABLET PO SCH (14:30)
[2019-01-05] MEDS ORDERED: ISOSORBIDE MONONITRATE ER 30 MG TAB.ER.24H PO SCH (14:30)
[2019-01-05] MEDS ORDERED: ALLOPURINOL 100 MG TABLET. PO SCH (14:30)
[2019-01-05] MEDS ORDERED: ASPIRIN ENTERIC COATED 81 MG TABLET.DR. PO SCH (14:30)
[2019-01-05] MEDS ORDERED: FUROSEMIDE 40 MG TABLET. PO SCH (14:30)
[2019-01-05] MEDS ORDERED: GABAPENTIN 100 MG CAPSULE. PO SCH (15:00)
[2019-01-05 15:29] VITALS: BP 181/86
[2019-01-05 16:25] VITALS: BP 158/83
[2019-01-05] MEDS ORDERED: TAMSULOSIN 0.4 MG CAP.ER.24H. PO SCH (21:00)
[2019-01-05] MEDS ORDERED: risperiDONE 0.25 MG TABLET. PO SCH (21:00)
[2019-01-05] MEDS ORDERED: DIVALPROEX EXTENDED RELEASE 500 MG TAB.ER.24H. PO SCH (21:00)
[2019-01-05] MEDS ORDERED: MORPHINE ER 30 MG TABLET.ER PO SCH (21:00)
[2019-01-05] MEDS ORDERED: GABAPENTIN 300 MG CAPSULE. PO SCH (21:00)
[2019-01-05] MEDS ORDERED: DULoxetine HCL 30 MG CAPSULE.DR PO SCH (21:00)
[2019-01-05] MEDS ORDERED: ATORVASTATIN CALCIUM 10 MG TABLET. PO SCH (21:00)
[2019-01-06] MEDS ORDERED: POTASSIUM CHLORIDE 20 MEQ TABLET.ER. PO SCH (08:00)
[2019-01-06] MEDS ORDERED: CHOLECALCIFEROL (VITAMIN D3) 1,000 UNIT TABLET PO SCH (09:00)
[2019-01-06] MEDS ORDERED: MULTIVITAMIN with MINERAL TABLET. PO SCH (09:00)
[2019-04-08] MEDS ORDERED: CYAN-25 PO (09:44)
== END 2019-01-05 19:00 | disposition home or self-care (01) | DRG 864 ==
LOC: ER 03:19 → 6 SOUTH 03:43
PROVIDERS: ADMIT Internal Medicine; ATTEND Internal Medicine
DX: R50.9 Fever, unspecified (principal); C91.10 Chronic lymphocytic leukemia of B-cell type not having achieved remission; R19.7 Diarrhea, unspecified; R53.1 Weakness; F43.21 Adjustment disorder with depressed mood; E66.9 Obesity, unspecified; E03.9 Hypothyroidism, unspecified; Z85.528 Personal history of other malignant neoplasm of kidney; Z90.5 Acquired absence of kidney; Z82.49 Family history of ischemic heart disease and other diseases of the circulatory system; Z79.899 Other long term (current) drug therapy; Z90.49 Acquired absence of other specified parts of digestive tract; Z79.82 Long term (current) use of aspirin; Z68.38 Body mass index [BMI] 38.0-38.9, adult
CPT/HCPCS: 36415; 71045; 74176; 76870; 80053; 80307; 80329; 81001; 83605; 83690; 83735; 83880; 84443; 84484; 85007; 85025; 85610; 85651; 87040; 87493; 93005; 96374; G0480; J0696; J1885; J7030; 99285-25; G0378

== ENCOUNTER 2019-04-08 04:22 | Inpatient (IN) | payer MEDICARE ==
[~2019-04-08] VITALS: Ht 172.7 cm; Wt 113.4 kg
[~2019-04-08 04:22] MED LIST changes: +TIZA4TAB PO; -TIZA4TAB2 PO
[2019-04-08 04:48] LABS: BASO # 0.1 x10^3/uL (0.0-0.2); BASO % 0 % (0-3); EOS # 0.3 x10^3/uL (0.0-0.7); EOS % 1 % (0-3); HEMATOCRIT 32.9 % (39.0-53.0); HEMOGLOBIN 10.6 g/dL (13.0-17.5); LYMPH # 30.7 x10^3/uL (1.0-4.8); LYMPH % 81 % (24-48); MEAN CORPUSCULAR HEMOGLOBIN 29 pg (25-35); MEAN CORPUSCULAR HGB CONC 32 g/dL (31-37); MEAN CORPUSCULAR VOLUME 90 fL (79-100); MONO # 1.3 x10^3/uL (0.0-1.1); MONO % 4 % (0-9); NEUT # 5.3 x10^3uL (1.8-7.7); NEUT % 14 % (31-73); PLATELET COUNT 286 x10^3/uL (140-400); RED BLOOD COUNT 3.65 x10^6/uL (4.30-5.70); RED CELL DISTRIBUTION WIDTH 14.6 % (11.5-14.5); WHITE BLOOD COUNT 37.8 x10^3/uL (4.0-11.0)
[2019-04-08 04:58] LABS: PROTHROMBIN TIME PATIENT 12.8 SEC (11.7-14.0)
[2019-04-08 05:01] LABS: CALCIUM 8.3 mg/dL (8.5-10.1); CREATININE 1.6 mg/dL (0.7-1.3); GFR 42.9; POTASSIUM 3.7 mmol/L (3.5-5.1)
[2019-04-08 05:07] LABS: ALBUMIN 2.4 g/dL (3.4-5.0); TOTAL BILIRUBIN 0.3 mg/dL (0.2-1.0); TOTAL PROTEIN 4.8 g/dL (6.4-8.2)
[2019-04-08] MEDS ORDERED: NITROGLYCERIN SUBLINGUAL 0.4 MG BOTTLE OF 25. SL PRN (05:30)
[2019-04-08] MEDS ORDERED: fentaNYL PF VIAL 100 MCG/2 ML VIAL IV ONE (05:30)
--- NOTE | 2019-04-08 06:25 | PHYS DOC ---
Past Medical History Past Medical History: Cancer, Hypothyroid, Other Additional Past Medical Histor: CLL; Renal cell carcinoma Past Surgical History: Appendectomy Additional Past Surgical Histo: back surgery,R nephrectomy Alcohol Use: None Drug Use: None Adult General Chief Complaint Chief Complaint: CHEST PAIN-CARDIAC NATURE HPI HPI Patient is a 68 year old male who is brought in by emesis with chest pain this is [facility] is a history of CLL he tells me he had a stress test 5 years ago that was normal he is presenting with chest discomfort left-sided described as dull started approximately 1 hour prior to arrival the medics gave aspirin and nitroglycerin the pain was radiating over to the left arm in the shoulder that pain was improved by nitroglycerin significantly. Patient is currently feeling better does have intermittent chest discomfort at this time. He denies a prior history of PA no trauma not pleuritic Review of Systems Review of Systems Constitutional: Denies fever or chills [] Eyes: Denies change in visual acuity, redness, or eye pain [] HENT: Denies nasal congestion or sore throat [] Respiratory: Cardiovascular: No additional information not addressed in HPI [] GI: Denies abdominal pain, nausea, vomiting, bloody stools or diarrhea [] : Denies dysuria or hematuria [] Neurologic: Denies headache, focal weakness or sensory changes [] Endocrine: Denies polyuria or polydipsia [] All other systems were reviewed and found to be within normal limits, except as documented in this note. Current Medications Current Medications Current Medications Medications (Trade) Dose Ordered Sig/Nils Start Time Stop Time Status Last Admin Dose Admin Fentanyl Citrate (Fentanyl 2ml Vial) 50 mcg 1X ONCE 04/08/19 05:30 04/08/19 05:31 DC Nitroglycerin (Nitrostat) 0.4 mg PRN Q5MIN PRN 04/08/19 05:30 04/09/19 05:29 Allergies Allergies Allergies Coded Allergies Type Severity Reaction Last Updated Verified No Known Drug Allergies 10/01/17 No Physical Exam Physical Exam Constitutional: Well developed, well nourished, no acute distress, non-toxic appearance. [] HENT: Normocephalic, atraumatic, bilateral external ears normal, oropharynx moist, no oral exudates, nose normal. [] Eyes: PERRLA, EOMI, conjunctiva normal, no discharge. [] Neck: Normal range of motion, no tenderness, supple, no stridor. [] Cardiovascular:Heart rate regular rhythm, no murmur [] Lungs & Thorax: Bilateral breath sounds clear to auscultation [] Abdomen: Bowel sounds normal, soft, no tenderness, no masses, no pulsatile masses. [] Skin: Warm, dry, no erythema, no rash. [] Back: No tenderness, no CVA tenderness. [] Extremities: No tenderness, no cyanosis, no clubbing, ROM intact, no edema. [] Neurologic: Alert and oriented X 3, normal motor function, normal sensory function, no focal deficits noted. [] Psychologic: Affect normal, judgement normal, mood normal. [] Current Patient Data Vital Signs Vital Signs Date Time Temp Pulse Resp B/P (MAP) Pulse Ox O2 Delivery O2 Flow Rate FiO2 04/08/19 04:22 98.5 66 14 160/70 (100) 95 Room Air 98.5 Lab Values Laboratory Tests Test 04/08/19 04:35 White Blood Count 37.8 x10^3/uL (4.0-11.0) H Red Blood Count 3.65 x10^6/uL (4.30-5.70) L Hemoglobin 10.6 g/dL (13.0-17.5) L Hematocrit 32.9 % (39.0-53.0) L Mean Corpuscular Volume 90 fL (79-100) Mean Corpuscular Hemoglobin 29 pg (25-35) Mean Corpuscular Hemoglobin Concent 32 g/dL (31-37) Red Cell Distribution Width 14.6 % (11.5-14.5) H Platelet Count 286 x10^3/uL (140-400) Neutrophils (%) (Auto) 14 % (31-73) L Lymphocytes (%) (Auto) 81 % (24-48) H Monocytes (%) (Auto) 4 % (0-9) Eosinophils (%) (Auto) 1 % (0-3) Basophils (%) (Auto) 0 % (0-3) Neutrophils # (Auto) 5.3 x10^3uL (1.8-7.7) Lymphocytes # (Auto) 30.7 x10^3/uL (1.0-4.8) H Monocytes # (Auto) 1.3 x10^3/uL (0.0-1.1) H Eosinophils # (Auto) 0.3 x10^3/uL (0.0-0.7) Basophils # (Auto) 0.1 x10^3/uL (0.0-0.2) Platelet Estimate Pending Prothrombin Time 12.8 SEC (11.7-14.0) Prothrombin Time INR 1.0 (0.8-1.1) Sodium Level 146 mmol/L (136-145) H Potassium Level 3.7 mmol/L (3.5-5.1) Chloride Level 108 mmol/L (98-107) H Carbon Dioxide Level 28 mmol/L (21-32) Anion Gap 10 (6-14) Blood Urea Nitrogen 19 mg/dL (8-26) Creatinine 1.6 mg/dL (0.7-1.3) H Estimated GFR (Cockcroft-Gault) 42.9 BUN/Creatinine Ratio 12 (6-20) Glucose Level 98 mg/dL (70-99) Calcium Level 8.3 mg/dL (8.5-10.1) L Total Bilirubin 0.3 mg/dL (0.2-1.0) Aspartate Amino Transferase (AST) 20 U/L (15-37) Alanine Aminotransferase (ALT) 23 U/L (16-63) Alkaline Phosphatase 62 U/L (46-116) Troponin I Quantitative 0.043 ng/mL (0.000-0.055) YF-Ebv-L-Type Natriuretic Peptide 197 pg/mL (0-124) H Total Protein 4.8 g/dL (6.4-8.2) L Albumin 2.4 g/dL (3.4-5.0) L Albumin/Globulin Ratio 1.0 (1.0-1.7) Laboratory Tests 04/08/19 04:35 Laboratory Tests 04/08/19 04:35 EKG EKG EKG shows a normal sinus rhythm rate of 66 there are no obvious acute ischemic changes noted 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 Chest x-ray is a poor quality film there is poor inspiration there may be something at the left lung base. No definite obvious abnormality there however overall probably similar to January 04, 2019[] Radiology/Procedures Radiology/Procedures [] Course & Med Decision Making Course & Med Decision Making Pertinent Labs and Imaging studies reviewed. (See chart for details) []68-year-old male with a history of CLL hypertension obesity presenting with some chest discomfort nonspecific in nature cardiac is a possibility first troponin is within normal range she did receive aspirin by the paramedics is feeling better in the emergency room plan to admit to Dr. GASTELUM d-dimer is currently pending at this time Dragon Disclaimer Dragon Disclaimer This electronic medical record was generated, in whole or in part, using a voice recognition dictation system. Departure Departure Impression: Primary Impression: Chest pain Disposition: ADMITTED INPATIENT Admitting Physician: Other Condition: STABLE Referrals: AMBROSE ARCE (PCP) KENNETH DEE MD April 08, 2019 06:25
[2019-04-08] MEDS ORDERED: IV NORMAL SALINE 500ML BAG 500 ML IV ONE (07:00)
--- NOTE | 2019-04-08 07:13 | EKG ---
[facility] [address] [place] [address] Test Date: 2019-04-08 Test Time: 04:31:34 Pat Name: BEAR BEASLEY Department: Room: 207 Gender: M Project Consultant: : [id number] Requested By: KENNETH DEE Order Number: [id number] Reading MD: Hebert Woodard Measurements Intervals [place] Rate: 66 P: 0 VT: 198 QRS: 11 QRSD: 86 T: 21 QT: 444 QTc: 467 Interpretive Statements SINUS RHYTHM NORMAL ECG Electronically Signed On 04-30-2019 12:11:01 CDT by Hebert Woodard
[2019-04-08 07:15] VITALS: BP 216/101
[2019-04-08] MEDS ORDERED: CONTRAST GIVEN. MC PRN (07:15)
[2019-04-08] MEDS ORDERED: IOHEXOL 350 MG/ML 100 ML VIAL. IV ONE (07:30)
--- NOTE | 2019-04-08 08:11 | RAD ---
PORTABLE CHEST 1V History: Chest pain Comparison: 01/04/2019 Findings: Single view of the chest is submitted. There is some atherosclerotic calcification near aortic arch. There is no pneumothorax, significant infiltrate or pleural fluid although evaluation of the left lung base limited due to the enlarged pericardial cardiac silhouette. Impression: 1. There is again enlargement of the pericardial cardiac silhouette, limits accurate evaluation of the left lung base. Electronically signed by: Elton Montiel MD (04/08/2019 8:08 AM) [id number]
--- NOTE | 2019-04-08 08:40 | RAD ---
CTA of the chest with contrast, 04/08/2019: HISTORY: Chest pain, possible pulmonary emboli Multidetector CT imaging was performed following an IV bolus injection of iodinated contrast material. Multiplanar reconstructions were produced including coronal and sagittal MIP images. The central pulmonary arteries are well opacified. There are pulsation type artifacts related to the proximal ascending aorta and main pulmonary artery. No filling defects are seen in the central pulmonary arteries to suggest pulmonary emboli. There is calcific plaquing of the thoracic aorta without evidence of aneurysm. Mild scattered coronary artery calcifications are noted. There is a mildly enlarged right subcarinal lymph node measuring 2.1 x 1.3 cm on the axial images. This node has increased in size since 12/05/2017. There is a slightly enlarged lymph node along the left lateral margin of the esophagus just inferior to the left main bronchus. There is mild volume loss on the left. There are streaky pleural-parenchymal opacities in the left upper lobe which are most prominent in the lingula region. These were also evident on a study from 01/05/2018 and presumably represent scarring. Left lower lobe infiltrates present on that old exam have cleared. There are mild unchanged pleural-parenchymal opacities posteriorly in the right lung compatible with scarring. No right-sided pulmonary mass or dense consolidation is seen. The right kidney is surgically absent. Multiple small celiac and portacaval region lymph nodes are seen without definite pathologic enlargement. Multiple small bilateral axillary lymph nodes are also evident. There are moderate scattered degenerative changes in the spine. IMPRESSION: 1. No CT evidence of central pulmonary emboli. 2. Mild calcific plaquing of the aorta and coronary arteries. 3. Mild mediastinal adenopathy. 4. Pleural/parenchymal scarring, left greater than right. PQRS Compliance Statement: One or more of the following individualized dose reduction techniques were utilized for this examination: 1. Automated exposure control 2. Adjustment of the mA and/or kV according to patient size 3. Use of iterative reconstruction technique Electronically signed by: Octavio Fields MD (04/08/2019 8:37 AM) [facility]
--- NOTE | 2019-04-08 09:05 | PDOC1 ---
History and Physical Date of Admission Date of Admission DATE: 04/08/19 TIME: 09:05 Identification/Chief Complaint Chief Complaint SEEN IN ER , 68 year old male who is brought in by emesis with chest pain [facility] is a history of CLL he tells me he had a stress test 5 years ago that was normal he is presenting with chest discomfort left-sided described as dull started approximately 1 hour prior to arrival the medics gave aspirin and nitroglycerin the pain was radiating over to the left arm in the shoulder that pain was improved by nitroglycerin significantly. Patient is currently feeling better does have intermittent chest discomfort at this time. He denies a prior history of [place] [employer] [place] Past Medical History Past Medical History Past Medical History Past Medical History: Cancer, Hypothyroid, Other Additional Past Medical Histor: CLL; Renal cell carcinoma Past Surgical History: Appendectomy Additional Past Surgical Histo: back surgery,R nephrectomy Alcohol Use: None Drug Use: None fhx obesity Cardiovascular: No pertinent hx Pulmonary: No pertinent hx, Bronchitis Heme/Onc: Cancer Renal/: No pertinent hx Endocrine: No pertinent hx Past Surgical History Past Surgical History: Other, No pertinent history Family History Family History: Hypertension Social History Smoke: No ALCOHOL: none Drugs: None Current Medications Current Medications Current Medications Fentanyl Citrate (Fentanyl 2ml Vial) 50 mcg 1X ONCE IV Last administered on 04/08/19at 07:10; Start 04/08/19 at 05:30; Stop 04/08/19 at 05:31; Status DC Nitroglycerin (Nitrostat) 0.4 mg PRN Q5MIN PRN SL CHEST PAIN; Start 04/08/19 at 05:30; Stop 04/09/19 at 05:29 Sodium Chloride 500 ml @ 500 mls/hr 1X ONCE IV Last administered on 04/08/19at 07:06; Start 04/08/19 at 07:00; Stop 04/08/19 at 07:59; Status DC Iohexol (Omnipaque 350 Mg/ml) 75 ml 1X ONCE IV Last administered on 04/08/19at 07:58; Start 04/08/19 at 07:30; Stop 04/08/19 at 07:31; Status DC Info (CONTRAST GIVEN -- Rx MONITORING) 1 each PRN DAILY PRN MC SEE COMMENTS; Start 04/08/19 at 07:15; Stop 04/10/19 at 07:14 Labetalol HCl (Normodyne Iv Push) 20 mg PRN Q2HR PRN IVP HYPERTENSION; Start 04/08/19 at 08:15 Active Scripts Active Reported Naloxone Hcl 0.4 Mg/1 Ml Disp.syrin 0.4 Mg IJ Lisinopril 40 Mg Tablet 40 Tab PO DAILY Vitamin D (Cholecalciferol (Vitamin D3)) 1,000 Unit Capsule 1 Cap PO DAILY Allopurinol 100 Mg Tablet 1 Tab PO DAILY Aspir 81 (Aspirin) 81 Mg Tablet.dr 1 Tab PO DAILY Tamsulosin Hcl 0.4 Mg Cap.er.24h 1 Cap PO QHS Furosemide 40 Mg Tablet 1 Tab PO DAILY Multivitamins (Multivitamin) 1 Each Tablet 1 Tab PO DAILY Divalproex Sodium 500 Mg Tablet.dr 1 Tab PO QHS Potassium Chloride 20 Meq Tablet.er 40 Meq PO DAILY Risperdal (Risperidone) 0.5 Mg Tablet 1 Tab PO BID Gabapentin (Gabapentin) 300 Mg Capsule 900 Mg PO TID Ms Contin (Morphine Sulfate) 30 Mg Tablet.er 1 Tab PO BID Cymbalta (Duloxetine Hcl) 60 Mg Capsule.dr 1 Cap PO HS Pravastatin Sodium 80 Mg Tablet 0.5 Tab PO QHS Isosorbide Mononitrate Er (Isosorbide Mononitrate) 30 Mg Tab.er.24h 1 Tab PO DAILY Allergies Allergies: Coded Allergies: No Known Drug Allergies (Unverified , 10/01/17) ROS Review of System Review of Systems Review of Systems Constitutional: Denies fever or chills [] Eyes: Denies change in visual acuity, redness, or eye pain [] HENT: Denies nasal congestion or sore throat [] Respiratory: Cardiovascular: No additional information not addressed in HPI [] GI: Denies abdominal pain, nausea, vomiting, bloody stools or diarrhea [] : Denies dysuria or hematuria [] Neurologic: Denies headache, focal weakness or sensory changes [] Endocrine: Denies polyuria or polydipsia [] 14 PT systems were reviewed and found to be within normal limits, except as documented Respiratory: No: Cough, Hemoptysis, Orthopnea, Pleuritic Pain, Shortness of breath, SOB with excertion, Sputum Changes, Stridor, Tachypnea, Wheezing, Other Physical Exam Physical Exam Physical Exam Physical Exam Constitutional: Well developed, well nourished, no acute distress, non-toxic appearance. [] HENT: Normocephalic, atraumatic, bilateral external ears normal, oropharynx moist, no oral exudates, nose normal. [] Eyes: PERRLA, EOMI, conjunctiva normal, no discharge. [] Neck: Normal range of motion, no tenderness, supple, no stridor. [] Cardiovascular:Heart rate regular rhythm, no murmur [] Lungs & Thorax: Bilateral breath sounds clear to auscultation [] Abdomen: Bowel sounds normal, soft, no tenderness, no masses, no pulsatile mass es. [] Skin: Warm, dry, no erythema, no rash. [] Back: No tenderness, no CVA tenderness. [] Extremities: No tenderness, no cyanosis, no clubbing, ROM intact, no edema. [] Neurologic: Alert and oriented X 3, normal motor function, normal sensory function, no focal deficits noted. [] Psychologic: Affect normal, judgement normal, mood normal. [] General: Alert, Oriented X3, Cooperative, No acute distress HEENT: Atraumatic, PERRLA, EOMI, Mucous membr. moist/pink Lungs: Clear to auscultation Heart: RRR Abdomen: Normal bowel sounds, Soft Rectal Exam: not examined PELVIC: Examination not indicated Extremities: No clubbing, No cyanosis, No edema Skin: No rashes Neuro: Normal speech, Strength at 5/5 X4 ext, Cranial nerves 3-12 NL Psych/Mental Status: Mental status NL, Mood NL Vitals Vitals Vital Signs Date Time Temp Pulse Resp B/P (MAP) Pulse Ox O2 Delivery O2 Flow Rate FiO2 04/08/19 07:10 20 Room Air 04/08/19 07:06 68 198/89 (125) 04/08/19 06:06 93 04/08/19 04:22 98.5 98.5 Labs Labs Laboratory Tests Test 04/08/19 04:35 04/08/19 08:18 White Blood Count 37.8 x10^3/uL (4.0-11.0) Red Blood Count 3.65 x10^6/uL (4.30-5.70) Hemoglobin 10.6 g/dL (13.0-17.5) Hematocrit 32.9 % (39.0-53.0) Mean Corpuscular Volume 90 fL (79-100) Mean Corpuscular Hemoglobin 29 pg (25-35) Mean Corpuscular Hemoglobin Concent 32 g/dL (31-37) Red Cell Distribution Width 14.6 % (11.5-14.5) Platelet Count 286 x10^3/uL (140-400) Neutrophils (%) (Auto) 14 % (31-73) Lymphocytes (%) (Auto) 81 % (24-48) Monocytes (%) (Auto) 4 % (0-9) Eosinophils (%) (Auto) 1 % (0-3) Basophils (%) (Auto) 0 % (0-3) Neutrophils # (Auto) 5.3 x10^3uL (1.8-7.7) Lymphocytes # (Auto) 30.7 x10^3/uL (1.0-4.8) Monocytes # (Auto) 1.3 x10^3/uL (0.0-1.1) Eosinophils # (Auto) 0.3 x10^3/uL (0.0-0.7) Basophils # (Auto) 0.1 x10^3/uL (0.0-0.2) Prothrombin Time 12.8 SEC (11.7-14.0) Prothromb Time International Ratio 1.0 (0.8-1.1) D-Dimer (Mariel) 0.66 ug/mlFEU (0.00-0.50) Sodium Level 146 mmol/L (136-145) Potassium Level 3.7 mmol/L (3.5-5.1) Chloride Level 108 mmol/L (98-107) Carbon Dioxide Level 28 mmol/L (21-32) Anion Gap 10 (6-14) Blood Urea Nitrogen 19 mg/dL (8-26) Creatinine 1.6 mg/dL (0.7-1.3) Estimated GFR (Cockcroft-Gault) 42.9 BUN/Creatinine Ratio 12 (6-20) Glucose Level 98 mg/dL (70-99) Calcium Level 8.3 mg/dL (8.5-10.1) Total Bilirubin 0.3 mg/dL (0.2-1.0) Aspartate Amino Transf (AST/SGOT) 20 U/L (15-37) Alanine Aminotransferase (ALT/SGPT) 23 U/L (16-63) Alkaline Phosphatase 62 U/L (46-116) Troponin I Quantitative 0.043 ng/mL (0.000-0.055) 0.041 ng/mL (0.000-0.055) SV-Fsr-E-Type Natriuretic Peptide 197 pg/mL (0-124) Total Protein 4.8 g/dL (6.4-8.2) Albumin 2.4 g/dL (3.4-5.0) Albumin/Globulin Ratio 1.0 (1.0-1.7) Laboratory Tests Test 04/08/19 04:35 04/08/19 08:18 White Blood Count 37.8 x10^3/uL (4.0-11.0) Red Blood Count 3.65 x10^6/uL (4.30-5.70) Hemoglobin 10.6 g/dL (13.0-17.5) Hematocrit 32.9 % (39.0-53.0) Mean Corpuscular Volume 90 fL (79-100) Mean Corpuscular Hemoglobin 29 pg (25-35) Mean Corpuscular Hemoglobin Concent 32 g/dL (31-37) Red Cell Distribution Width 14.6 % (11.5-14.5) Platelet Count 286 x10^3/uL (140-400) Neutrophils (%) (Auto) 14 % (31-73) Lymphocytes (%) (Auto) 81 % (24-48) Monocytes (%) (Auto) 4 % (0-9) Eosinophils (%) (Auto) 1 % (0-3) Basophils (%) (Auto) 0 % (0-3) Neutrophils # (Auto) 5.3 x10^3uL (1.8-7.7) Lymphocytes # (Auto) 30.7 x10^3/uL (1.0-4.8) Monocytes # (Auto) 1.3 x10^3/uL (0.0-1.1) Eosinophils # (Auto) 0.3 x10^3/uL (0.0-0.7) Basophils # (Auto) 0.1 x10^3/uL (0.0-0.2) Prothrombin Time 12.8 SEC (11.7-14.0) Prothromb Time International Ratio 1.0 (0.8-1.1) D-Dimer (Mariel) 0.66 ug/mlFEU (0.00-0.50) Sodium Level 146 mmol/L (136-145) Potassium Level 3.7 mmol/L (3.5-5.1) Chloride Level 108 mmol/L (98-107) Carbon Dioxide Level 28 mmol/L (21-32) Anion Gap 10 (6-14) Blood Urea Nitrogen 19 mg/dL (8-26) Creatinine 1.6 mg/dL (0.7-1.3) Estimated GFR (Cockcroft-Gault) 42.9 BUN/Creatinine Ratio 12 (6-20) Glucose Level 98 mg/dL (70-99) Calcium Level 8.3 mg/dL (8.5-10.1) Total Bilirubin 0.3 mg/dL (0.2-1.0) Aspartate Amino Transf (AST/SGOT) 20 U/L (15-37) Alanine Aminotransferase (ALT/SGPT) 23 U/L (16-63) Alkaline Phosphatase 62 U/L (46-116) Troponin I Quantitative 0.043 ng/mL (0.000-0.055) 0.041 ng/mL (0.000-0.055) OC-Lpf-G-Type Natriuretic Peptide 197 pg/mL (0-124) Total Protein 4.8 g/dL (6.4-8.2) Albumin 2.4 g/dL (3.4-5.0) Albumin/Globulin Ratio 1.0 (1.0-1.7) Images Images CTA of the chest with contrast, 04/08/2019: HISTORY: Chest pain, possible pulmonary emboli Multidetector CT imaging was performed following an IV bolus injection of iodinated contrast material. Multiplanar reconstructions were produced including coronal and sagittal MIP images. The central pulmonary arteries are well opacified. There are pulsation type artifacts related to the proximal ascending aorta and main pulmonary artery. No filling defects are seen in the central pulmonary arteries to suggest pulmonary emboli. There is calcific plaquing of the thoracic aorta without evidence of aneurysm. Mild scattered coronary artery calcifications are noted. There is a mildly enlarged right subcarinal lymph node measuring 2.1 x 1.3 cm on the axial images. This node has increased in size since 12/05/2017. There is a slightly enlarged lymph node along the left lateral margin of the esophagus just inferior to the left main bronchus. There is mild volume loss on the left. There are streaky pleural-parenchymal opacities in the left upper lobe which are most prominent in the lingula region. These were also evident on a study from 01/05/2018 and presumably represent scarring. Left lower lobe infiltrates present on that old exam have cleared. There are mild unchanged pleural-parenchymal opacities posteriorly in the right lung compatible with scarring. No right-sided pulmonary mass or dense consolidation is seen. The right kidney is surgically absent. Multiple small celiac and portacaval region lymph nodes are seen without definite pathologic enlargement. Multiple small bilateral axillary lymph nodes are also evident. There are moderate scattered degenerative changes in the spine. IMPRESSION: 1. No CT evidence of central pulmonary emboli. 2. Mild calcific plaquing of the aorta and coronary arteries. 3. Mild mediastinal adenopathy. 4. Pleural/parenchymal scarring, left greater than right. 2D DIMENSIONS RVDd 3.2 (2.9-3.5cm) Left Atrium(2D) 4.5 (1.6-4.0cm) IVSd 1.3 (0.7-1.1cm) Aortic Root(2D) 3.5 (2.0-3.7cm) LVDd 5.2 (3.9-5.9cm) LVOT Diameter 2.4 (1.8-2.4cm) PWd 1.3 (0.7-1.1cm) LVDs 3.7 (2.5-4.0cm) FS (%) 29.0 % SV 73.1 ml LVEF(%) 55.3 (>50%) Aortic Valve AoV Peak Simon. 134.5cm/s AoV VTI 26.3cm AO Peak GR. 7.2mmHg LVOT Peak Simon. 124.9cm/s AO Mean GR. 3mmHg LICO (VMAX) 4.07cm2 LICO (VTI) 4.20cm2 Mitral Valve MV E Velocity 107.7cm/s MV DECEL TIME 250ms MV A Velocity 136.7cm/s E/A Ratio 0.8 Tricuspid Valve TR P. Velocity 258cm/s RAP ESTIMATE 3mmHg TR Peak Gr. 27mmHg RVSP 30mmHg Pulmonary Vein S1 Velocity 61.5cm/s D2 Velocity 33.8cm/s LEFT VENTRICLE The left ventricle is normal size. There is mild concentric left ventricular hypertrophy. The left ventricular systolic function is normal. The Ejection Fraction is 55-60%. Transmitral Doppler flow pattern is Grade I-abnormal relaxation pattern. RIGHT VENTRICLE The right ventricle is normal size. The right ventricular systolic function is normal. ATRIA The left atrium is mildly dilated. The right atrium is mildly dilated. The interatrial septum is intact with no evidence for an atrial septal defect or patent foramen ovale as noted on 2-D or Doppler imaging. AORTIC VALVE The aortic valve is calcified but opens well. Doppler and Color Flow revealed no significant aortic regurgitation. There is no significant aortic valvular stenosis. MITRAL VALVE The mitral valve is normal in structure and function. There is no evidence of mitral valve prolapse. There is no mitral valve stenosis. Doppler and Color-flow revealed trace to mild mitral regurgitation. TRICUSPID VALVE The tricuspid valve is normal in structure and function. Doppler and Color Flow revealed trace tricuspid regurgitation. The PA pressure was estimated at 30 mmHg. There is no tricuspid valve stenosis. PULMONIC VALVE The pulmonic valve is not well visualized. Doppler and Color Flow revealed no pulmonic valvular regurgitation. There is no pulmonic valvular stenosis. GREAT VESSELS The aortic root is normal in size. The ascending aorta is mildly dilated. The IVC is normal in size and collapses >50% with inspiration. PERICARDIAL EFFUSION There is no evidence of significant pericardial effusion. Critical Notification Critical Value: No <Conclusion> The left ventricular systolic function is normal. The Ejection Fraction is 55-60%. Transmitral Doppler flow pattern is Grade I-abnormal relaxation pattern. Trace to mild mitral regurgitation. Trace tricuspid regurgitation. The PA pressure was estimated at 30 mmHg. There is no evidence of significant pericardial effusion. Signed by : Mario De Santiago, Electronically Approved : 04/08/2019 11:26:34 DICTATED and SIGNED BY: MARIO DE SANTIAGO MD DATE: 04/08/19 1126 [id number] CC: SHREYA GASTELUM MD; MARKO MCDERMOTT APRN; MARIO DE SANTIAGO MD; AMBROSE ARCE ~ Page of VTE Prophylaxis Ordered VTE Prophylaxis Devices: Yes VTE Pharmacological Prophylaxi: Yes Assessment/Plan Assessment/Plan IMPRESSION 1. No CT evidence of central pulmonary emboli. 2. Mild calcific plaquing of the aorta and coronary arteries. 3. Mild mediastinal adenopathy. 4. Pleural/parenchymal scarring, left greater than right. 5. CHEST PAIN 6. MORBID OBESITY 7. HYPERLIPIDEMIA 8. HTN, UNCONTROLLED 9. CLL ON ECHO The left ventricular systolic function is normal. The Ejection Fraction is 55-60%. Transmitral Doppler flow pattern is Grade I-abnormal relaxation pattern PLAN CVC ADMIT CARDIOLOGY CONSULT SERIAL TROPONIN I ECHO OK WITH PASNORI FOR D/C TODAY Past Medical History Past Medical History: Cancer, Hypothyroid, Other Additional Past Medical Histor: CLL; Renal cell carcinoma Past Surgical History: Appendectomy Additional Past Surgical Histo: back surgery,R nephrectomy Alcohol Use: None Drug Use: None SAMI WAY MD April 08, 2019 09:05
--- NOTE | 2019-04-08 09:08 | PDOC2 ---
MARKO MCDERMOTT [employer] 04/08/19 0908: CARDIAC CONSULT DATE OF CONSULT Date of Consult DATE: 04/08/19 TIME: 08:52 REASON FOR CONSULT Reason for Consult: Chest pain REFERRING PHYSICIAN Referring Physician: Leonor SOURCE Source: Chart review, Patient HISTORY OF PRESENT ILLNESS HISTORY OF PRESENT ILLNESS This is a pleasant 68 yo male admitted for complains of chest pain. Reports that he was awake around 4 AM and started having dull achy discomfort to left chest left of his breast region which was easily reproducible with palpation and focal. It did radiate to his left shoulder and base of his neck. He did fall accidentally about 1-2 weeks ago but more importantly he was sleeping to his left side before waking up this morning. This lasted about 30 minutes and called for the EMS right away. He has had stress test approx about 5 yrs ago. Reports no associated intractable coughing, injury, heavy lifting as he is disabled. He is able to walk around and do light duties but no complains of exertional CP or RAMSEY. No nausea, fever, chills, or recent pulmonary infections. Denies any CAD, VTE. He does have EBENEZER and very compliant to his CPAP. Compliant with his meds. His BP is currently elevated but he has not taken his 2 BP meds just yet. 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) GI: No pertinent hx Heme/Onc: Other (CLL reported remission) Hepatobiliary: No pertinent hx Psych: Depression Musculoskeletal: low back pain, Osteoarthritis Rheumatologic: No pertinent hx Infectious disease: No pertinent hx ENT: Other Endocrine: No pertinent hx Dermatology: No pertinent hx PAST SURGICAL HISTORY Past Surgical History: Appendectomy, Arthroscopy (RTC repair), Tonsillectomy, Other (LMD) FAMILY HISTORY Family History: Heart Disease (mother) SOCIAL HISTORY Smoke: Quit (remote) ALCOHOL: none Drugs: None Lives: Friends (roommate) CURRENT MEDICATIONS CURRENT MEDICATIONS Current Medications Medications (Trade) Dose Ordered Sig/Nils Route PRN Reason Start Time Stop Time Status Last Admin Dose Admin Fentanyl Citrate (Fentanyl 2ml Vial) 50 mcg 1X ONCE IV 04/08/19 05:30 04/08/19 05:31 DC 04/08/19 07:10 Sodium Chloride 500 ml @ 500 mls/hr 1X ONCE IV 04/08/19 07:00 04/08/19 07:59 DC 04/08/19 07:06 Iohexol (Omnipaque 350 Mg/ml) 75 ml 1X ONCE IV 04/08/19 07:30 04/08/19 07:31 DC 04/08/19 07:58 ALLERGIES ALLERGIES: Coded Allergies: No Known Drug Allergies (Unverified , 10/01/17) ROS Review of System 14 point ROS evaluated with pertinent positives noted per HPI PHYSICAL EXAM General: Alert, Oriented X3, Cooperative, No acute distress HEENT: Atraumatic, Mucous membr. moist/pink Lungs: Clear to auscultation, Normal air movement Heart: Regular rate (SR), Normal S1, Normal S2, No murmurs Abdomen: Soft, No tenderness Extremities: No cyanosis, No edema Skin: No breakdown, No significant lesion Neuro: Normal speech, Sensation intact Psych/Mental Status: Mental status NL, Mood NL MUSCULOSKELETAL: Osteoarthritic changes both hands VITALS VITALS Vital Signs Date Time Temp Pulse Resp B/P (MAP) Pulse Ox O2 Delivery O2 Flow Rate FiO2 04/08/19 07:10 20 Room Air 04/08/19 07:06 68 198/89 (125) 04/08/19 06:06 93 04/08/19 04:22 98.5 98.5 LABS Lab: Laboratory Tests Test 04/08/19 04:35 04/08/19 08:18 White Blood Count 37.8 x10^3/uL (4.0-11.0) Red Blood Count 3.65 x10^6/uL (4.30-5.70) Hemoglobin 10.6 g/dL (13.0-17.5) Hematocrit 32.9 % (39.0-53.0) Mean Corpuscular Volume 90 fL (79-100) Mean Corpuscular Hemoglobin 29 pg (25-35) Mean Corpuscular Hemoglobin Concent 32 g/dL (31-37) Red Cell Distribution Width 14.6 % (11.5-14.5) Platelet Count 286 x10^3/uL (140-400) Neutrophils (%) (Auto) 14 % (31-73) Lymphocytes (%) (Auto) 81 % (24-48) Monocytes (%) (Auto) 4 % (0-9) Eosinophils (%) (Auto) 1 % (0-3) Basophils (%) (Auto) 0 % (0-3) Neutrophils # (Auto) 5.3 x10^3uL (1.8-7.7) Lymphocytes # (Auto) 30.7 x10^3/uL (1.0-4.8) Monocytes # (Auto) 1.3 x10^3/uL (0.0-1.1) Eosinophils # (Auto) 0.3 x10^3/uL (0.0-0.7) Basophils # (Auto) 0.1 x10^3/uL (0.0-0.2) Prothrombin Time 12.8 SEC (11.7-14.0) Prothromb Time International Ratio 1.0 (0.8-1.1) D-Dimer (Mariel) 0.66 ug/mlFEU (0.00-0.50) Sodium Level 146 mmol/L (136-145) Potassium Level 3.7 mmol/L (3.5-5.1) Chloride Level 108 mmol/L (98-107) Carbon Dioxide Level 28 mmol/L (21-32) Anion Gap 10 (6-14) Blood Urea Nitrogen 19 mg/dL (8-26) Creatinine 1.6 mg/dL (0.7-1.3) Estimated GFR (Cockcroft-Gault) 42.9 BUN/Creatinine Ratio 12 (6-20) Glucose Level 98 mg/dL (70-99) Calcium Level 8.3 mg/dL (8.5-10.1) Total Bilirubin 0.3 mg/dL (0.2-1.0) Aspartate Amino Transf (AST/SGOT) 20 U/L (15-37) Alanine Aminotransferase (ALT/SGPT) 23 U/L (16-63) Alkaline Phosphatase 62 U/L (46-116) Troponin I Quantitative 0.043 ng/mL (0.000-0.055) 0.041 ng/mL (0.000-0.055) FG-Lhg-X-Type Natriuretic Peptide 197 pg/mL (0-124) Total Protein 4.8 g/dL (6.4-8.2) Albumin 2.4 g/dL (3.4-5.0) Albumin/Globulin Ratio 1.0 (1.0-1.7) ASSESSMENT/PLAN ASSESSMENT/PLAN 1. Atypical CP: suspect MSK, focal 2. Accelerated HTN 3. EBENEZER: CPAP complaint 4. Obesity: BMI 38 5. HLP 6. Leukocytosis: no diarrhea. Verbalized CLL in remission 7. Coronary calcifications per CT 8. Possible CKD Recommendations 1. Baseline TTE. If CP continues, given his cardiac risk factors will consider for outpt stress test. 2. Resume home BP meds, will reeval once list is obtained. Discussed with RN, labetolol IV PRN. ASA. 3. Check lipids and TSH. 4. Check UA for any proteinuria. and check CK MARIO DE SANTIAGO MD 04/08/19 1537: CARDIAC CONSULT ASSESSMENT/PLAN ASSESSMENT/PLAN Patient seen and examined. Agree with PUZZLE ASSEMBLER's assessment and plan. Chest pain with atypical features and most probably musculoskeletal Myocardial infarction has been ruled out 2-D echo showed normal LV function without any wall motion abnormalities Plan for outpatient ischemic evaluation with stress test, [facility] BP better controlled since admission Thank you for your consultation MARKO MCDERMOTT APRN April 08, 2019 09:08 MARIO DE SANTIAGO MD April 08, 2019 15:37
[2019-04-08] MEDS: LABETALOL 20 MG/4 ML DISP.SYRIN. IVP PRN ×2 (09:17→17:34)
[2019-04-08 09:36] LABS: CHOLESTEROL/HDL RATIO 4.2
[2019-04-08] MEDS ORDERED: AMMO120C TP (09:44)
[2019-04-08] MEDS ORDERED: CYAN10005 PO (09:44)
[2019-04-08] MEDS ORDERED: MELO15TA23 PO (09:44)
[2019-04-08] MEDS ORDERED: AMLO5TAB10 PO (09:44)
[2019-04-08] MEDS ORDERED: SERT100T PO (09:44)
--- NOTE | 2019-04-08 09:52 | NUR ---
Home medication list: Patient consented to obtain medication list from [facility] in [place]. [facility] phone number [phone] ext [phone].
[2019-04-08] MEDS ORDERED: ASPIRIN ENTERIC COATED 81 MG TABLET.DR. PO SCH (10:00)
[2019-04-08 10:11] LABS: BILIRUBIN,URINE NEGATIVE (NEG); CLARITY,URINE CLEAR; COLOR,URINE YELLOW; NITRITE,URINE NEGATIVE (NEG); PROTEIN,URINE >=300 mg/dL (NEG-TRACE)
[2019-04-08 10:26] LABS: BACTERIA,URINE 0 /HPF (0-FEW); RBC,URINE 0 /HPF (0-2); SQUAMOUS EPITHELIAL CELL,UR FEW /LPF; WBC,URINE 0 /HPF (0-4)
[2019-04-08 10:28] LABS: % BANDS 1 % (0-9); % EOS 1 % (0-5); % LYMPHS 88 % (24-48); % MONOS 1 % (0-10); % SEGS 9 % (35-66); NUCLEATED RBC 1; PLT ESTIMATE ADEQUATE (ADEQUATE)
[2019-04-08] MEDS ORDERED: LISINOPRIL 20 MG TABLET PO SCH (10:30)
[2019-04-08] MEDS ORDERED: SERTRALINE 50 MG TABLET. PO SCH (10:30)
[2019-04-08] MEDS ORDERED: ISOSORBIDE MONONITRATE ER 30 MG TAB.ER.24H PO SCH (10:30)
[2019-04-08] MEDS ORDERED: MELOXICAM 7.5 MG TABLET PO SCH (10:30)
[2019-04-08] MEDS ORDERED: CHOLECALCIFEROL (VITAMIN D3) 1,000 UNIT TABLET PO SCH (10:30)
[2019-04-08] MEDS ORDERED: amLODIPine BESYLATE 5 MG TABLET PO SCH (10:30)
[2019-04-08] MEDS ORDERED: CYANOCOBALAMIN (VITAMIN B-12) 1,000 MCG TABLET. PO SCH (10:30)
[2019-04-08] MEDS: FUROSEMIDE 40 MG TABLET. PO SCH ×2 (10:52→14:49)
[2019-04-08] MEDS: GABAPENTIN 300 MG CAPSULE. PO SCH ×2 (10:54→12:07)
[2019-04-08 11:00] VITALS: BP 147/87
--- NOTE | 2019-04-08 11:26 | CARD ---
MR#: [id number] Date of Study: 04/08/2019 Ordering Physician: MARKO MCDERMOTT, Referring Physician: SHREYA GASTELUM Tech: Winifred Fuller RDCS APPROVED REPORT EXAM: Two-dimensional and M-mode echocardiogram with Doppler and color Doppler. Other Information Quality : Fair INDICATION Chest Pain 2D DIMENSIONS RVDd3.2 (2.9-3.5cm)Left Atrium(2D)4.5 (1.6-4.0cm) IVSd1.3 (0.7-1.1cm)Aortic Root(2D)3.5 (2.0-3.7cm) LVDd5.2 (3.9-5.9cm)LVOT Diameter2.4 (1.8-2.4cm) PWd1.3 (0.7-1.1cm)LVDs3.7 (2.5-4.0cm) FS (%) 29.0 %SV73.1 ml LVEF(%)55.3 (>50%) Aortic Valve AoV Peak Simon.134.5cm/sAoV VTI26.3cm AO Peak GR.7.2mmHgLVOT Peak Simon.124.9cm/s AO Mean GR.3mmHgAVA (VMAX)4.07cm2 LICO (VTI)4.20cm2 Mitral Valve MV E Nwlvngsg603.7cm/sMV DECEL [id number] MV A Yqirtvbf375.7cm/sE/A Ratio0.8 Tricuspid Valve TR P. Lnvwxiww458wl/sRAP [id number] TR Peak Gr.[id number] Pulmonary Vein S1 Eiahmulq77.5cm/sD2 Oecvkuho79.8cm/s LEFT VENTRICLE The left ventricle is normal size. There is mild concentric left ventricular hypertrophy. The left ve ntricular systolic function is normal. The Ejection Fraction is 55-60%. Transmitral Doppler flow dede mary is Grade I-abnormal relaxation pattern. RIGHT VENTRICLE The right ventricle is normal size. The right ventricular systolic function is normal. ATRIA The left atrium is mildly dilated. The right atrium is mildly dilated. The interatrial septum is inta ct with no evidence for an atrial septal defect or patent foramen ovale as noted on 2-D or Doppler im aging. AORTIC VALVE The aortic valve is calcified but opens well. Doppler and Color Flow revealed no significant aortic r egurgitation. There is no significant aortic valvular stenosis. MITRAL VALVE The mitral valve is normal in structure and function. There is no evidence of mitral valve prolapse. There is no mitral valve stenosis. Doppler and Color-flow revealed trace to mild mitral regurgitation . TRICUSPID VALVE The tricuspid valve is normal in structure and function. Doppler and Color Flow revealed trace tricus pid regurgitation. The PA pressure was estimated at 30 mmHg. There is no tricuspid valve stenosis. PULMONIC VALVE The pulmonic valve is not well visualized. Doppler and Color Flow revealed no pulmonic valvular regur gitation. There is no pulmonic valvular stenosis. GREAT VESSELS The aortic root is normal in size. The ascending aorta is mildly dilated. The IVC is normal in size a nd collapses >50% with inspiration. PERICARDIAL EFFUSION There is no evidence of significant pericardial effusion. Critical Notification Critical Value: No <Conclusion> The left ventricular systolic function is normal. The Ejection Fraction is 55-60%. Transmitral Doppler flow pattern is Grade I-abnormal relaxation pattern. Trace to mild mitral regurgitation. Trace tricuspid regurgitation. The PA pressure was estimated at 30 mmHg. There is no evidence of significant pericardial effusion. Signed by : Hebert Woodard, Electronically Approved : 04/08/2019 11:26:34
--- NOTE | 2019-04-08 13:54 | NUR ---
SS following for discharge planning. SS reviewed pt chart. Pt is from home and is currently on room air. No discharge needs noted at this time. SS will continue to follow for discharge planning.
[2019-04-08 15:00] VITALS: BP 160/72
[2019-04-08] MEDS ORDERED: HYDROcodone/APAP 5/325MG 1 TAB TABLET PO ONE (15:00)
--- NOTE | 2019-04-08 15:09 | PDOC3 ---
Discharge Summary Date of Admission: April 08, 2019 Date of Discharge: April 08, 2019 Follow-Up: 3-5 days Admitting Diagnosis comment: DISCHARGE DX IMPRESSION 1. No CT evidence of central pulmonary emboli. 2. Mild calcific plaquing of the aorta and coronary arteries. 3. Mild mediastinal adenopathy. 4. Pleural/parenchymal scarring, left greater than right. 5. CHEST PAIN 6. MORBID OBESITY 7. HYPERLIPIDEMIA 8. HTN, UNCONTROLLED 9. CLL ON ECHO The left ventricular systolic function is normal. The Ejection Fraction is 55-60%. Transmitral Doppler flow pattern is Grade I-abnormal relaxation pattern PLAN CVC ADMIT CARDIOLOGY CONSULT SERIAL TROPONIN I ECHO OK WITH PASNORI FOR D/C TODAY SEE ONCOLOGY AT [facility] NEXT WEEK D/C PLANNING 37 MIN Past Medical History Past Medical History: Cancer, Hypothyroid, Other Additional Past Medical Histor: CLL; Renal cell carcinoma Past Surgical History: Appendectomy Additional Past Surgical Histo: back surgery,R nephrectomy Alcohol Use: None Drug Use: None Brief Hospital Course Mr. Stewart is a 68 old [sex] who presented with CHEST PAIN[ ] CONDITION AT DISCHARGE: Improved Discharge Medications Current Medications Fentanyl Citrate (Fentanyl 2ml Vial) 50 mcg 1X ONCE IV Last administered on 04/08/19at 07:10; Start 04/08/19 at 05:30; Stop 04/08/19 at 05:31; Status DC Nitroglycerin (Nitrostat) 0.4 mg PRN Q5MIN PRN SL CHEST PAIN Last administered on 04/08/19at 14:37; Start 04/08/19 at 05:30; Stop 04/09/19 at 05:29 Sodium Chloride 500 ml @ 500 mls/hr 1X ONCE IV Last administered on 04/08/19at 07:06; Start 04/08/19 at 07:00; Stop 04/08/19 at 07:59; Status DC Iohexol (Omnipaque 350 Mg/ml) 75 ml 1X ONCE IV Last administered on 04/08/19at 07:58; Start 04/08/19 at 07:30; Stop 04/08/19 at 07:31; Status DC Info (CONTRAST GIVEN -- Rx MONITORING) 1 each PRN DAILY PRN MC SEE COMMENTS; Start 04/08/19 at 07:15; Stop 04/10/19 at 07:14 Labetalol HCl (Normodyne Iv Push) 20 mg PRN Q2HR PRN IVP HYPERTENSION Last administered on 04/08/19 09:17; Start 04/08/19 at 08:15 Aspirin (Ecotrin) 81 mg [id number] PO Last administered on 04/08/19 10:52; Start 04/08/19 at 10:00 Amlodipine Besylate (Norvasc) 5 mg DAILY PO Last administered on 04/08/19 10:52; Start 04/08/19 at 10:30 Cyanocobalamin (Vitamin B-12) 1,000 mcg DAILY PO Last administered on 04/08/19 10:52; Start 04/08/19 at 10:30 Furosemide (Lasix) 40 mg [id number] PO Last administered on 04/08/19 14:49; Start 04/08/19 at 10:30 Gabapentin (Neurontin) 900 mg TID PO Last administered on 04/08/19 10:54; Start 04/08/19 at 10:30 Isosorbide Mononitrate (Imdur) 30 mg DAILY PO Last administered on 04/08/19 10:52; Start 04/08/19 at 10:30 Lisinopril (Prinivil) 40 mg DAILY PO Last administered on 04/08/19 10:53; Start 04/08/19 at 10:30 Tamsulosin HCl (Flomax) 0.4 mg QHS PO ; Start 04/08/19 at 21:00 Vitamin D (Vitamin D3) 2,000 unit DAILY PO Last administered on 04/08/19 10:51; Start 04/08/19 at 10:30 Meloxicam (Mobic) 15 mg DAILY PO Last administered on 04/08/19 10:53; Start 04/08/19 at 10:30 Atorvastatin Calcium (Lipitor) 10 mg QHS PO ; Start 04/08/19 at 21:00 Sertraline HCl (Zoloft) 100 mg DAILY PO Last administered on 04/08/19 10:53; Start 04/08/19 at 10:30 Acetaminophen/ Hydrocodone Bitart (Lortab 5/325) 1 tab 1X ONCE PO Last administered on 04/08/19 14:49; Start 04/08/19 at 15:00; Stop 04/08/19 at 15:01; Status DC Active Scripts Active Reported Emu-Lac Hydrating Cream (Ammonium Lactate/Emu Oil) 120 Ml Cream.ml. 120 Ml TP TID PRN Vitamin B-12 (Cyanocobalamin (Vitamin B-12)) 1,000 Mcg Tablet 1,000 Mcg PO DAILY Zoloft (Sertraline Hcl) 100 Mg Tablet 100 Mg PO DAILY Amlodipine Besylate 5 Mg Tablet 5 Mg PO DAILY Meloxicam 15 Mg Tablet 15 Mg PO DAILY Lisinopril 40 Mg Tablet 40 Mg PO DAILY Vitamin D (Cholecalciferol (Vitamin D3)) 1,000 Unit Capsule 2 Cap PO DAILY Aspir 81 (Aspirin) 81 Mg Tablet.dr 1 Tab PO DAILY Tamsulosin Hcl 0.4 Mg Cap.er.24h 1 Cap PO QHS Furosemide 40 Mg Tablet 1 Tab PO BID Gabapentin (Gabapentin) 300 Mg Capsule 900 Mg PO TID Pravastatin Sodium 80 Mg Tablet 0.5 Tab PO QHS Isosorbide Mononitrate Er (Isosorbide Mononitrate) 30 Mg Tab.er.24h 1 Tab PO DAILY Vital Signs Vital Signs Date Time Temp Pulse Resp B/P (MAP) Pulse Ox O2 Delivery O2 Flow Rate FiO2 04/08/19 14:37 65 04/08/19 11:00 97.9 18 147/87 (107) 93 Room Air 97.9 Labs Laboratory Tests Test 04/08/19 04:35 04/08/19 08:18 04/08/19 09:00 04/08/19 11:50 White Blood Count 37.8 x10^3/uL (4.0-11.0) Red Blood Count 3.65 x10^6/uL (4.30-5.70) Hemoglobin 10.6 g/dL (13.0-17.5) Hematocrit 32.9 % (39.0-53.0) Mean Corpuscular Volume 90 fL (79-100) Mean Corpuscular Hemoglobin 29 pg (25-35) Mean Corpuscular Hemoglobin Concent 32 g/dL (31-37) Red Cell Distribution Width 14.6 % (11.5-14.5) Platelet Count 286 x10^3/uL (140-400) Neutrophils (%) (Auto) 14 % (31-73) Lymphocytes (%) (Auto) 81 % (24-48) Monocytes (%) (Auto) 4 % (0-9) Eosinophils (%) (Auto) 1 % (0-3) Basophils (%) (Auto) 0 % (0-3) Neutrophils # (Auto) 5.3 x10^3uL (1.8-7.7) Lymphocytes # (Auto) 30.7 x10^3/uL (1.0-4.8) Monocytes # (Auto) 1.3 x10^3/uL (0.0-1.1) Eosinophils # (Auto) 0.3 x10^3/uL (0.0-0.7) Basophils # (Auto) 0.1 x10^3/uL (0.0-0.2) Segmented Neutrophils % 9 % (35-66) Band Neutrophils % 1 % (0-9) Lymphocytes % 88 % (24-48) Monocytes % 1 % (0-10) Eosinophils % 1 % (0-5) Nucleated Red Blood Cells 1 Platelet Estimate Adequate (ADEQUATE) Prothrombin Time 12.8 SEC (11.7-14.0) Prothromb Time International Ratio 1.0 (0.8-1.1) D-Dimer (Mariel) 0.66 ug/mlFEU (0.00-0.50) Sodium Level 146 mmol/L (136-145) Potassium Level 3.7 mmol/L (3.5-5.1) Chloride Level 108 mmol/L (98-107) Carbon Dioxide Level 28 mmol/L (21-32) Anion Gap 10 (6-14) Blood Urea Nitrogen 19 mg/dL (8-26) Creatinine 1.6 mg/dL (0.7-1.3) Estimated GFR (Cockcroft-Gault) 42.9 BUN/Creatinine Ratio 12 (6-20) Glucose Level 98 mg/dL (70-99) Calcium Level 8.3 mg/dL (8.5-10.1) Total Bilirubin 0.3 mg/dL (0.2-1.0) Aspartate Amino Transf (AST/SGOT) 20 U/L (15-37) Alanine Aminotransferase (ALT/SGPT) 23 U/L (16-63) Alkaline Phosphatase 62 U/L (46-116) Creatine Kinase 214 U/L (39-308) Troponin I Quantitative 0.043 ng/mL (0.000-0.055) 0.041 ng/mL (0.000-0.055) < 0.017 ng/mL (0.000-0.055) WB-Enu-G-Type Natriuretic Peptide 197 pg/mL (0-124) Total Protein 4.8 g/dL (6.4-8.2) Albumin 2.4 g/dL (3.4-5.0) Albumin/Globulin Ratio 1.0 (1.0-1.7) Triglycerides Level 138 mg/dL (0-150) Cholesterol Level 158 mg/dL (0-200) LDL Cholesterol, Calculated 92 mg/dL (0-100) VLDL Cholesterol, Calculated 28 mg/dL (0-40) Non-HDL Cholesterol Calculated 120 mg/dL (0-129) HDL Cholesterol 38 mg/dL (40-60) Cholesterol/HDL Ratio 4.2 Thyroid Stimulating Hormone (TSH) 4.280 uIU/mL (0.358-3.74) Urine Collection Type Unknown Urine Color Yellow Urine Clarity Clear Urine pH 6.0 Urine Specific [place] 1.010 Urine Protein >=300 mg/dL (NEG-TRACE) Urine Glucose (UA) Negative mg/dL (NEG) Urine Ketones (Stick) Negative mg/dL (NEG) Urine Blood Negative (NEG) Urine Nitrite Negative (NEG) Urine Bilirubin Negative (NEG) Urine Urobilinogen Dipstick 1.0 mg/dL (0.2 mg/dL) Urine Leukocyte Esterase Negative (NEG) Urine RBC 0 /HPF (0-2) Urine WBC 0 /HPF (0-4) Urine Squamous Epithelial Cells Few /LPF Urine Bacteria 0 /HPF (0-FEW) Laboratory Tests Test 04/08/19 04:35 04/08/19 08:18 04/08/19 09:00 04/08/19 11:50 White Blood Count 37.8 x10^3/uL (4.0-11.0) Red Blood Count 3.65 x10^6/uL (4.30-5.70) Hemoglobin 10.6 g/dL (13.0-17.5) Hematocrit 32.9 % (39.0-53.0) Mean Corpuscular Volume 90 fL (79-100) Mean Corpuscular Hemoglobin 29 pg (25-35) Mean Corpuscular Hemoglobin Concent 32 g/dL (31-37) Red Cell Distribution Width 14.6 % (11.5-14.5) Platelet Count 286 x10^3/uL (140-400) Neutrophils (%) (Auto) 14 % (31-73) Lymphocytes (%) (Auto) 81 % (24-48) Monocytes (%) (Auto) 4 % (0-9) Eosinophils (%) (Auto) 1 % (0-3) Basophils (%) (Auto) 0 % (0-3) Neutrophils # (Auto) 5.3 x10^3uL (1.8-7.7) Lymphocytes # (Auto) 30.7 x10^3/uL (1.0-4.8) Monocytes # (Auto) 1.3 x10^3/uL (0.0-1.1) Eosinophils # (Auto) 0.3 x10^3/uL (0.0-0.7) Basophils # (Auto) 0.1 x10^3/uL (0.0-0.2) Segmented Neutrophils % 9 % (35-66) Band Neutrophils % 1 % (0-9) Lymphocytes % 88 % (24-48) Monocytes % 1 % (0-10) Eosinophils % 1 % (0-5) Nucleated Red Blood Cells 1 Platelet Estimate Adequate (ADEQUATE) Prothrombin Time 12.8 SEC (11.7-14.0) Prothromb Time International Ratio 1.0 (0.8-1.1) D-Dimer (Mariel) 0.66 ug/mlFEU (0.00-0.50) Sodium Level 146 mmol/L (136-145) Potassium Level 3.7 mmol/L (3.5-5.1) Chloride Level 108 mmol/L (98-107) Carbon Dioxide Level 28 mmol/L (21-32) Anion Gap 10 (6-14) Blood Urea Nitrogen 19 mg/dL (8-26) Creatinine 1.6 mg/dL (0.7-1.3) Estimated GFR (Cockcroft-Gault) 42.9 BUN/Creatinine Ratio 12 (6-20) Glucose Level 98 mg/dL (70-99) Calcium Level 8.3 mg/dL (8.5-10.1) Total Bilirubin 0.3 mg/dL (0.2-1.0) Aspartate Amino Transf (AST/SGOT) 20 U/L (15-37) Alanine Aminotransferase (ALT/SGPT) 23 U/L (16-63) Alkaline Phosphatase 62 U/L (46-116) Creatine Kinase 214 U/L (39-308) Troponin I Quantitative 0.043 ng/mL (0.000-0.055) 0.041 ng/mL (0.000-0.055) < 0.017 ng/mL (0.000-0.055) ZD-Rdy-E-Type Natriuretic Peptide 197 pg/mL (0-124) Total Protein 4.8 g/dL (6.4-8.2) Albumin 2.4 g/dL (3.4-5.0) Albumin/Globulin Ratio 1.0 (1.0-1.7) Triglycerides Level 138 mg/dL (0-150) Cholesterol Level 158 mg/dL (0-200) LDL Cholesterol, Calculated 92 mg/dL (0-100) VLDL Cholesterol, Calculated 28 mg/dL (0-40) Non-HDL Cholesterol Calculated 120 mg/dL (0-129) HDL Cholesterol 38 mg/dL (40-60) Cholesterol/HDL Ratio 4.2 Thyroid Stimulating Hormone (TSH) 4.280 uIU/mL (0.358-3.74) Urine Collection Type Unknown Urine Color Yellow Urine Clarity Clear Urine pH 6.0 Urine Specific [place] 1.010 Urine Protein >=300 mg/dL (NEG-TRACE) Urine Glucose (UA) Negative mg/dL (NEG) Urine Ketones (Stick) Negative mg/dL (NEG) Urine Blood Negative (NEG) Urine Nitrite Negative (NEG) Urine Bilirubin Negative (NEG) Urine Urobilinogen Dipstick 1.0 mg/dL (0.2 mg/dL) Urine Leukocyte Esterase Negative (NEG) Urine RBC 0 /HPF (0-2) Urine WBC 0 /HPF (0-4) Urine Squamous Epithelial Cells Few /LPF Urine Bacteria 0 /HPF (0-FEW) Allergies Allergies Coded Allergies Type Severity Reaction Last Updated Verified No Known Drug Allergies 10/01/17 No Disposition/Orders: D/C to Home Patient Instructions D/C PLANNING [address] MD April 08, 2019 15:09
--- NOTE | 2019-04-08 15:11 | DISCH ---
DISCHARGE INSTRUCTIONS Condition on Discharge Condition on Discharge: Stable Activity After Discharge Activity Instructions for Disc: Activity as tolerated Lifting Instructions after Dis: No heavy lifting, No pulling or pushing Driving Instructions after Dis: Do not drive today Weight Bearing Status after Di: No restrictions Diet after Discharge Diet after Discharge: Cardiac, Regular Diet Texture: Regular Checks after Discharge Checks after discharge: Check blood press - daily Contacting the DRAlon after DC Call your doctor for: If your condition worsens Treatment/Equipment after DC Adaptive Equipment Issued: None Warfarin Follow-Up Warfarin Follow UP: SEE ONCOLOGIST AT [facility] NEXT WEEK SAMI [address] MD April 08, 2019 15:11
[2019-04-08 18:08] VITALS: BP 143/65
--- NOTE | 2019-04-08 18:45 | NUR ---
Discharge teaching verbal and written. Reviewed medication, follow-up, chest pain, echo, stress test, ect. Patient verbalized understanding. All belongings with patient. IV removed without complications, catheter tip in-tact. All belongings with patient. Taxi called for patient, cab pass provided, waiting on ride.
--- NOTE | 2019-04-08 19:11 | NUR ---
pt discharge home via cab, discharge instructions given, pt verbalized understanding. pmrn
[2019-04-08] MEDS ORDERED: ATORVASTATIN CALCIUM 10 MG TABLET. PO SCH (21:00)
[2019-04-08] MEDS ORDERED: TAMSULOSIN 0.4 MG CAP.ER.24H. PO SCH (21:00)
== END 2019-04-08 19:13 | disposition home or self-care (01) | DRG 313 ==
LOC: ER 04:22 → 2 NORTH 06:36 → OBSVTOIN 08:37
PROVIDERS: ADMIT Internal Medicine; ATTEND Internal Medicine
DX: R07.89 Other chest pain (principal); C91.11 Chronic lymphocytic leukemia of B-cell type in remission; I25.10 Atherosclerotic heart disease of native coronary artery without angina pectoris; F32.9 Major depressive disorder, single episode, unspecified; E03.9 Hypothyroidism, unspecified; G47.33 Obstructive sleep apnea (adult) (pediatric); E78.5 Hyperlipidemia, unspecified; M54.10 Radiculopathy, site unspecified; M19.90 Unspecified osteoarthritis, unspecified site; E66.01 Morbid (severe) obesity due to excess calories; Z68.38 Body mass index [BMI] 38.0-38.9, adult; Z90.49 Acquired absence of other specified parts of digestive tract; Z90.5 Acquired absence of kidney; Z85.528 Personal history of other malignant neoplasm of kidney; Z82.49 Family history of ischemic heart disease and other diseases of the circulatory system; I10 Essential (primary) hypertension
CPT/HCPCS: 36415; 71045; 71275; 80053; 80061; 81001; 82550; 83880; 84443; 84484; 85007; 85025; 85379; 85610; 93005; 93306; 96361; 96374; G0378; G0379; J3010; J3490; J7040; Q9967; 99285-25